=== PATIENT | male | born 1970 | race Caucasian/White ===

== ENCOUNTER 2023-10-03 11:09 | Outpatient (AMB) | payer OTHER, SELFPAY ==
--- NOTE | 2023-10-03 11:32 | A.OFFPC_ITS ---
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 Transferring care from Dr. Guajardo. Pt has not seen a PCP 3-4 years. Medical records have been requested today. 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 Has not seen a PCP in 4 years. Suffers from lower back pain with radiculopathy down right lower extremity. Patient has past medical history significant for obesity and tobacco dependency. He reports he has been a smoker over the last 25 years. Noted elevated blood pressure readings today in office. He will monitor blood pressure at home with goal blood pressure to be below 140/90. Will consider antihypertensive medication if consistently above 140/90 Vaccines: Declines FLu and COVID, did get a Tdap in 2019. Considering shingles vaccine Colon cancer screen: Needs colon cancer screening. 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 1. Little interest or pleasure in doing things: not at all 2. Feeling down, depressed, or hopeless: not at all 3. Trouble falling or staying asleep, or sleeping too much: not at all 4. Feeling tired or having little energy: not at all 5. Poor appetite or overeating: not at all 6. Feeling bad about yourself - or that you are a failure or have let yourself or your family down: not at all 7. Trouble concentrating on things, such as reading the newspaper or watching television: not at all 8. Moving or speaking so slowly that other people could have noticed. Or the opposite - being so fidgety or restless that you have been moving around a lot more than usual: not at all 9. Thoughts that you would be better off or of hurting yourself in some way: not at all Total score: 0 Depression Screening Interpretation: Negative Depression Screening Done: Yes 35195 - PHQ-9 Billing: Yes Source: Developed by Drs. Rick Alonzo, Noemy Neal, Juan R Plascencia and colleagues, with an educational obey from [employer]. Thrive Questionnaire Date Thrive assessed: 10/03/23 I am a: Patient What is your living situation today?: I have a steady place to live Within the past 12 months, did the food you bought not last and you didn't have the money to get more?: Never true Within the past 12 months, did you worry whether your food would run out before you got money to buy more?: Never true Do you have trouble paying for medicines?: No Do you have trouble paying your heating and electricity bill?: No Do you have trouble taking care of your child, family member or friend?: No Do you have trouble with day-to-day activities such as bathing, preparing meals, shopping, managing finances, etc.?: No Are you currently unemployed and looking for a job?: No Are you interested in more education?: No Please select the resources that you would like help with: None Currently or been in a relationship where the following occur: no concerns reported AUDIT C Alcohol Use Questionnaire (AUDIT-C) 1. How often do you have a drink containing alcohol?: Monthly or less 2. How many drinks containing alcohol do you have on a typical day when you are drinking?: 3 or 4 3. How often do you have six or more drinks on one occasion?: Never Total Score: 2 LUIS DANIEL-7 AMB Questionnaire LUIS DANIEL-7 Date LUIS DANIEL - 7 assessed: 10/03/23 Feeling nervous, anxious, or on edge: 0 = Not at all Not being able to stop or control worryin = Not at all Worrying too much about different things: 0 = Not at all Trouble relaxin = Not at all Being so restless that it is hard to sit still: 0 = Not at all Becoming easily annoyed or irritable: 0 = Not at all Feeling afraid as if something awful might happen: 0 = Not at all Total LUIS DANIEL-7 score (0-4 normal; 5-9 mild; 10-14 moderate; 15-21 severe): 0 Source: Developed by Drs. Rick Alonzo, Noemy Neal, Juan R Plascencia and colleagues, with an educational obey from [employer]. LUIS DANIEL-7 Assessment Billing LUIS DANIEL-7 Assessment Tool: LUIS DANIEL-7 Assessment 41264 Review of Systems Const Denies body aches, Denies chills, Denies excessive sweating, Denies fatigue, Denies fever(s) and Denies headache(s) Eyes Denies blurry vision ENT Denies dysphagia, Denies vertigo, Denies dizziness, Denies headache(s), Denies hearing loss and Denies tinnitus Card Denies chest pain, Denies chest pain with activity, Denies syncope, Denies irregular heart rhythm and Denies dyspnea Resp Denies chest congestion, Denies cough, Denies hemoptysis, Denies dyspnea and Denies wheezing GI Denies abdominal pain, Denies melena, Denies hematochezia, Denies coffee ground emesis, Denies dysphagia, Denies diarrhea, Denies nausea and Denies vomiting Denies difficulty urinating, Denies dysuria, Denies urinary frequency, Denies urinary hesitancy and Denies urinary urgency Musc Denies arthralgias, Denies limited range of motion, Denies muscle cramps and Denies muscle weakness Skin/Breast Denies rash and Denies skin ulcer Neuro Denies Abnormal speech present, Denies confusion, Denies vertigo, Denies dizziness, Denies syncope, Denies headache(s), Denies memory loss and Denies seizure-like activity Psych Denies anxiety, Denies confusion, Denies depression, Denies memory loss, Denies panic attacks and Denies paranoia Endo Denies excessive sweating, Denies fatigue, Denies flushing, Denies polydipsia and Denies polyuria Aller/Immun Denies wheezing Physical exam (Primary Care) Vital Signs: Last Vital Signs Pulse 86 10/03/23 11:33 Resp 17 10/03/23 11:33 BP 148/80 H 10/03/23 11:33 BMI result Body Mass Index 30.9 BMI Assessment/Plan discussion: High Tobacco/Smoking Status: Tobacco use Status Tobacco use date assessed 10/03/23 10/03/23 11:43 Patient Tobacco Use Status Current everyday Tobacco 10/03/23 11:43 Tobacco use type Cigarette 10/03/23 11:43 e-Cigarette/Vaping Use Never Used 10/03/23 11:43 Are you ready to quit: Yes Tobacco cessation counseling provided: Yes Items discussed: Nicotine replacement Relapse Prevention: discussed the importance of a supportive environment, discussed negative mood or depression after quitting, weight gain after smoking is common and discussed dietary, exercise and/or lifestyle changes Number of minutes spent counselin CPT code: 60293 - 4-10 Minutes PHQ-9: PHQ-9 Score PHQ-9: Total score 0 10/03/23 11:43 Depression Screening Interpretation: Negative Thrive Assessment: Date of Thrive Assessment Date Thrive assessed 10/03/23 12 11:43 Currently or been in a relationship where the following occur: no concerns reported Const Other: Obese General: cooperative, comfortable, no acute distress, alert and awake; No confusion Orientation/consciousness: oriented to person, oriented to place, patient oriented x3 and No confusion HENMT Head: Yes normocephalic Ears: external ears normal and TM's normal bilaterally Face and sinus: No sinus tenderness Mouth: Normal oral and palatal mucosa present and tongue normal Teeth and gingiva: dentition normal and gingiva normal Throat: Yes posterior oropharynx normal, Yes tonsils normal and Yes uvula midline Eyes Conjunctivae: conjunctivae normal Sclerae: sclerae normal Pupils: Equal, round and reactive pupils present EOM: EOMs intact bilaterally Direct Ophthalmoscopy: No no photophobia Neck Neck: Yes no lymphadenopathy, No tender and Yes no JVD Thyroid: Thyroid normal Carotids: no bruits Chest Chest palpation & inspection: no tenderness Resp Effort & Inspection: normal respiratory effort, no audible wheezes, not labored and no stridor Auscultation: no crackles, no rales, no rhonchi and no wheezes Cardio Jugular venous distension: no JVD Rate: regular rate, not bradycardic and not tachycardic Rhythm: regular rhythm Bruits: no carotid bruits Peripheral pulses: Peripheral pulses 2+ throughout GI Inspection: Yes normal to inspection, No abdominal wall ecchymosis and No visible herniation Palpation (GI): Soft to palpation, nontender, no guarding, not rigid and No hepatosplenomegaly present Auscultation: normoactive bowel sounds General: Yes no CVA tenderness Back/Spine/Pelvis Back: no CVA tenderness and No back tenderness Cervical Spine: cervical ROM normal Thoracic/Lumbar Spine: thoracic and lumbar spine normal to inspection, straight leg raise negative bilaterally, No thoraco-lumbar ROM limited and No lumbar spinal tenderness Skin Lesions: no lesions Rashes: no rashes Wounds: no wounds Neuro General: oriented to person, oriented to place, patient oriented x3, CN's II-XI intact bilaterally and No confusion Cranial nerves: Yes Equal, round and reactive pupils present and Yes Normal accommodation reflex present Cognition (Neuro): normal cognition Speech: No Abnormal speech present Gait exam (Neuro): Normal gait present Motor exam (neuro): 5/5 motor strength present throughout Extrem Right upper extremity: full ROM; no cyanosis Left upper extremity: full ROM; no cyanosis Right lower extremity: no edema Left lower extremity: no edema Psych Appearance: grossly normal Mental Status: mental status grossly normal Affect: normal affect Attitude: cooperative Thought process: Normal thought process present Assessment and Plan Assessment & Plan (1) Annual physical exam: Code(s): Z00.00 - Encounter for general adult medical examination without abnormal findings (2) Tobacco dependence: Code(s): F17.200 - Nicotine dependence, unspecified, uncomplicated Plan: Patient reports he has been smoking for 20 - 25 years. He is interested in stopping smoking. He reports nicotine patches have been helpful. He is interested in the lung cancer screening program. (3) Colon cancer screening: Code(s): Z12.11 - Encounter for screening for malignant neoplasm of colon Plan: Reports getting colonoscopy 10 years ago. Did have polyps though unclear pathology. Will refer to GI for another screening colonoscopy. (4) Elevated blood pressure reading: Code(s): R03.0 - Elevated blood-pressure reading, without diagnosis of hypertension Plan: Noted elevated blood pressure reading today in office. He will monitor his blood pressure at home with goal blood pressure to be below 140/90. If blood pressure remains elevated will consider starting medication. (5) Screening for diabetes mellitus (DM): Code(s): Z13.1 - Encounter for screening for diabetes mellitus (6) Obese: Code(s): E66.9 - Obesity, unspecified Qualifiers: Obesity type: due to excess calories Obesity classification: adult class 1 (BMI 30 - 34.9) Serious obesity comorbidity presence: without serious comorbidity Body mass index: BMI 30.0-30.9 Qualified Code(s): E66.09 - Other obesity due to excess calories; Z68.30 - Body mass index [BMI] 30.0-30.9, adult Plan: Patient does understand his BMI is over 30. He will work on being more physically active and adapting to better eating habits to reduce his weight Orders: Orders Prostate Specific Antigen Scr Today Z12.5 - Encounter for screening for malignant neoplasm of prostate, Z13.1 - Encounter for screening for diabetes mellitus Comprehensive [place]. Panel Fast Today Z13.1 - Encounter for screening for diabetes mellitus Complete Blood Count no Diff Today Z13.1 - Encounter for screening for diabetes mellitus Referrals Gastroenterology Referral Z12.11 - Encounter for screening for malignant neoplasm of colon Thoracic Surgery Referral F17.200 - Nicotine dependence, unspecified, uncomplicated Medications: New nicotine 1 patch transdermal DAILY 14 days 14 ea 0RF F17.200 - Nicotine dependence, unspecified, uncomplicated Coding Level of Care Code New Pt Prev Care 40-64y(70466) Diagnoses Annual physical exam Z00.00 Tobacco dependence F17.200 Colon cancer screening Z12.11 Elevated blood pressure reading R03.0 Screening for diabetes mellitus (DM) Z13.1 Class 1 obesity due to excess calories without serious comorbidity with body mass index (BMI) of 30.0 to 30.9 in adult E66.09; Z68.30 Obesity type: due to excess calories Obesity classification: adult class 1 (BMI 30 - 34.9) Serious obesity comorbidity presence: without serious comorbidity Body mass index: BMI 30.0-30.9 Additional Codes LUIS DANIEL-7 Assessment Billing - LUIS DANIEL-7 Assessment Tool: LUIS DANIEL-7 Assessment 14910 ([id number]) Vital Signs *Quality* - CPT code: 44252 - 4-10 Minutes ([id number])
[2023-10-03 11:33] VITALS: BP 148/80; PULSE 86; RESP 17; BMI 30.9
== END 2023-10-03 12:20 | disposition home or self-care (01) ==
PROVIDERS: PCP Physician Assistant; Visit Provider Physician Assistant
DX: Z00.00 Encounter for general adult medical examination without abnormal findings (principal); F17.210 Nicotine dependence, cigarettes, uncomplicated; Z12.11 Encounter for screening for malignant neoplasm of colon; R03.0 Elevated blood-pressure reading, without diagnosis of hypertension; Z13.1 Encounter for screening for diabetes mellitus; E66.09 Other obesity due to excess calories; Z68.30 Body mass index [BMI] 30.0-30.9, adult
CPT/HCPCS: 99386; 99406

== ENCOUNTER → 2023-10-16 08:21 | Outpatient (BNVA) | payer OTHER, SELFPAY | PROVIDERS: PCP Physician Assistant; Visit Provider Internal Medicine | DX: S61.432A Puncture wound without foreign body of left hand, initial encounter (principal); W29.8XXA Contact with other powered hand tools and household machinery, initial encounter | CPT/HCPCS: 73130; 99203 ==

== ENCOUNTER → 2023-10-18 08:19 | Outpatient (BNVA) | payer OTHER, SELFPAY | PROVIDERS: PCP Physician Assistant; Visit Provider Internal Medicine | DX: S61.432A Puncture wound without foreign body of left hand, initial encounter (principal); W29.8XXA Contact with other powered hand tools and household machinery, initial encounter | CPT/HCPCS: 99213 ==

== ENCOUNTER → 2023-11-04 10:27 | Outpatient (BNVA) | payer OTHER, SELFPAY | PROVIDERS: PCP Physician Assistant; Visit Provider Internal Medicine | DX: S81.811A Laceration without foreign body, right lower leg, initial encounter (principal); X58.XXXA Exposure to other specified factors, initial encounter | CPT/HCPCS: 99203 ==

== ENCOUNTER → 2023-11-06 08:16 | Outpatient (BNVA) | payer OTHER, SELFPAY | PROVIDERS: PCP Physician Assistant; Visit Provider Internal Medicine | DX: S81.811A Laceration without foreign body, right lower leg, initial encounter (principal); L03.115 Cellulitis of right lower limb; X58.XXXA Exposure to other specified factors, initial encounter | CPT/HCPCS: 99213 ==

== ENCOUNTER → 2023-11-08 11:27 | Outpatient (BNVA) | payer OTHER, SELFPAY | PROVIDERS: PCP Physician Assistant; Visit Provider Internal Medicine | DX: S81.811A Laceration without foreign body, right lower leg, initial encounter (principal); L03.115 Cellulitis of right lower limb; X58.XXXA Exposure to other specified factors, initial encounter | CPT/HCPCS: 99213 ==

== ENCOUNTER → 2023-11-11 11:06 | Outpatient (BNVA) | payer OTHER, SELFPAY | PROVIDERS: PCP Physician Assistant; Visit Provider Internal Medicine | DX: S81.811A Laceration without foreign body, right lower leg, initial encounter (principal); X58.XXXA Exposure to other specified factors, initial encounter | CPT/HCPCS: 99213 ==

== ENCOUNTER → 2023-11-15 08:06 | Outpatient (BNVA) | payer OTHER, SELFPAY | PROVIDERS: PCP Physician Assistant; Visit Provider Internal Medicine | DX: S81.811D Laceration without foreign body, right lower leg, subsequent encounter (principal); X58.XXXD Exposure to other specified factors, subsequent encounter | CPT/HCPCS: 99213 ==

== ENCOUNTER 2024-01-22 14:25 | Outpatient (AMB) | payer OTHER, SELFPAY ==
--- NOTE | 2024-01-22 14:25 | A.OFFVIS_ITS ---
Intake Vital Signs 01/22/24 14:33 Height 5 ft 9 in Weight 210 lb BMI 31.0 BP 149/71 H Blood Pressure Location Lt brachial Position Sitting Pulse 94 Intake Visit Reasons: Colonoscopy Screening Intake Note: Patient new consult for 2nd pre colonoscopy screening. Patient cc: constipation on and off, denies any other GI issues. 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 abdominal pain fever or chills PFSH Surgical History Hx of colonoscopy Family History Mother Liver cancer Father Heart attack, Onset Age: 69 Diabetes Brother Diabetes Social History Housing: House Alcohol intake: current Alcohol intake frequency: a few times a week Alcohol type: beer Patient Tobacco Use Status: Current everyday Tobacco user Tobacco use type: Cigarette Cigarette Packs Per Day: 1 Cigarettes Per Day: 20 Years Smoked: 20 e-Cigarette/Vaping Use: Never Used service: No Current occupational status: employed 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 Cognitive needs: No Hearing needs: No Vision needs: Yes Review of Systems Const All systems reviewed & are unremarkable except as noted in HPI and below Card Denies chest pain and Denies dyspnea Resp Denies dyspnea GI Reports constipation (Intermittent) Physical Exam Vital Signs: Last Vital Signs Pulse 94 01/22/24 14:33 BP 149/71 H 01/22/24 14:33 BMI result Body Mass Index 31.0 Const General: cooperative, healthy appearing and comfortable Orientation/consciousness: patient oriented x3 Limitations: no limitations and ambulation with cane Eyes Sclerae: sclerae normal Resp Effort & Inspection: normal respiratory effort and able to speak in complete sentences Auscultation: clear to auscultation bilaterally, no rales, no rhonchi and no wheezes Cardio Rate: regular rate Rhythm: regular rhythm Heart sounds: S1 normal heart sound present and S2 normal heart sound present GI Palpation (GI): Soft to palpation and nontender Auscultation: normal bowel sounds Skin General skin exam: no rashes or lesions noted Neuro General: patient oriented x3 Extrem General: Yes full ROM Psych Appearance: grossly normal and well kempt Mental Status: mental status grossly normal Speech and movement: Normal speech and movement present Affect: normal affect Attitude: cooperative Thought process: Normal thought process present Thought content: Normal thought content present Insight: Good insight present (Psych) Judgement: Good judgement present (Psych) Assessment & Plan Assessment & Plan (1) Colon cancer screening: Comment: Maria D Amador referred for screening colonoscopy Code(s): Z12.11 - Encounter for screening for malignant neoplasm of colon Plan: screening colonoscopy Plan Colonoscopy Orders: Orders Colonoscopy - GI Use Only 01/22/24 Z12.11 - Encounter for screening for malignant neoplasm of colon Medications: New polyethylene glycol 3350 (Miralax) Take as directed by mouth the day before your procedure. 238 grams PO ONCE PRN 238 grams 0RF laxative effect 1 day bisacodyl (Dulcolax (bisacodyl)) Day before procedure @ 12 noon Take 4 tablets by mouth followed by large glass of water 20 mg (4 x 5 mg) PO ONCE PRN 4 tabs 0RF colonoscopy prep 1 day Z12.11 - Encounter for screening for malignant neoplasm of colon Patient Instructions: Screening colonoscopy, MiraLax Gatorade prep reviewed literature given Must be escorted due to anesthesia Rare risks review Opportunity for questions answered to his satisfaction Appreciate the opportunity assist in care maria d Amador Coding Level of Care Code New Pt Level 3 (07270) Diagnoses Colon cancer screening Z12.11 Time Spent (min) 30
[2024-01-22 14:33] VITALS: BP 149/71; PULSE 94; BMI 31.0
== END 2024-01-22 15:13 | disposition home or self-care (01) ==
PROVIDERS: PCP Physician Assistant; Visit Provider Physician Assistant
DX: Z12.11 Encounter for screening for malignant neoplasm of colon (principal); Z01.818 Encounter for other preprocedural examination
CPT/HCPCS: 99203

== ENCOUNTER → 2024-01-22 14:25 | Outpatient (BNVA) | payer OTHER, SELFPAY | PROVIDERS: PCP Physician Assistant; Visit Provider Physician Assistant ==

== ENCOUNTER 2024-02-28 10:19 | Outpatient (AMB) | payer OTHER, SELFPAY ==
--- NOTE | 2024-02-28 08:22 | MHC.OFFVIS ---
Intake Visit Reasons: Current Smoker Allergies No Known Allergies Allergy (Verified 01/22/24 14:28) HPI HPI Current Smoker: Details: Initial visit for this 53yo smoker with a 30+PYH. Patient has been smoking since age 19 for 34 years at 1ppd. . Denies marijuana use. Reports social second hand smoke exposure. Denies exposure to chemicals or substances like asbestos. . Denies known family history of lung cancer. Denies personal history of cancers. Denies chest CT in last year. . Denies recent travel outside the [place]. Denies recent respiratory illness or recent hospitalization for respiratory issues. Reports testing positive for COVID. Denies receiving COVID Vaccine. . Denies fever, chills, new/worsening cough, hemoptysis, hoarseness or dysphagia. Denies significant chest pain, significant dyspnea or unintentional weight loss. Patient Lung Cancer Screening Questionnaire reviewed with patient by provider. . Shared Decision Making Completed. Patient meets criteria. Discussed in detail with patient, the risk vs benefit of LDCT screening. Patient consents to proceed with scan. Discussed smoking cessation. [facility] Medical History (Updated 02/28/24 @ 10:30 by Samantha Sheriff PA-C) Nicotine dependence, cigarettes, uncomplicated Surgical History Hx of colonoscopy Family History Mother Liver cancer Father Heart attack, Onset Age: 69 Diabetes Brother Diabetes Social History (Updated 02/28/24 @ 10:31 by Samantha Sheriff PA-C) Housing: House Alcohol intake: current Alcohol intake frequency: a few times a week Alcohol type: beer Patient Tobacco Use Status: Current everyday Tobacco user Tobacco use type: Cigarette Cigarette Packs Per Day: 1 Cigarettes Per Day: 20 Years Smoked: (onset 19yo, 1ppd x 34yrs, 30+PYH) e-Cigarette/Vaping Use: Never Used service: No Current occupational status: employed 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 - Patient meets criteria for LDCT for lung cancer screening purposes and is asymptomatic. - Smoking cessation counseling offered. Patients can always call [phone]. - Will arrange for a LDCT scan of the chest for screening purposes at [facility]. - Risks, benefits, and alternatives were discussed in detail and the patient agrees to proceed. - Risks discussed include but are not limited to: radiation exposure, anxiety during testing and while awaiting results, false negatives, false positives and possibility of additional intervention such as further imaging or surgical procedures for benign disease. - Benefits are obviously detection of lung cancer at an early stage which can lead to improved outcomes. - Discussed the importance of screening program compliance with adherence to yearly LDCT scan as scheduled - or sooner interval scans for personalized screening regimen. - Discussed follow up plan. Our office will send a letter discussing results and if needed set up phone call and office visit based on CT findings. - Patient educated on results categorization and the management decisions for suspicious findings potentially found on the screening LDCT scan. Any patient with a Lung RADS score of 3 or 4 will be reviewed by a multidisciplinary team at [facility] to form a plan of action in regards to scan findings. - If further work up is warranted for a suspicious lung finding this will be followed by the Lung Cancer Screening program in conjunction with the Thoracic Surgery Department at [facility]. - A copy of the office note and LDCT will be sent to the patient's PCP - as well as documentation on any associated further plans of care. - Incidental findings on LDCT are the PCP's responsibility. These findings are indicated with an S finding on the LDCT Assessment. A note discussing the findings will be sent to the PCP who is then responsible for further management. - All questions answered.? Coding Level of Care Code Lung Cancer Screening G0296 Diagnoses Nicotine dependence, cigarettes, uncomplicated F17.210
== END 2024-02-28 10:43 | disposition home or self-care (01) ==
PROVIDERS: PCP Physician Assistant; Referring Provider Physician Assistant; Visit Provider Physician Assistant Medical
DX: F17.210 Nicotine dependence, cigarettes, uncomplicated (principal)
CPT/HCPCS: G0296

== ENCOUNTER 2024-02-28 10:39 | Outpatient (REF) | payer OTHER, SELFPAY ==
--- NOTE | ~2024-02-28 | CT_ITS ---
EXAMINATION: CT LOW-DOSE SCREENING CHEST WITHOUT CONTRAST CLINICAL INFORMATION: Nicotine dependence, cigarettes, uncomplicated. The patient is a current smoker with a 41 pack-year history of smoking. COMPARISON: None available. TECHNIQUE: Multidetector volumetric CT imaging of the chest is performed on a Siemens SOMATOM Definition scanner without contrast using low dose technique. Additional 2D coronal and sagittal reformatted images and axial 3D maximum intensity projection (MIP) images are generated on the CT workstation. This CT examination was performed using dose optimization techniques as appropriate, variously including the following: *Automated exposure control *Adjustment of mA and/or kV according to patient size (this includes techniques or standardized protocols for targeted exams where dose is matched to indication/reason for exam; i.e. extremities or head) *Use of iterative reconstruction technique TOTAL EXAM DLP: 69 mGy-cm. CTDIvol: 1.94 mGy. FINDINGS: PULMONARY NODULES: A few small pulmonary nodules are present including a 3 mm left upper lobe nodule (5:153), a 2 mm right upper lobe nodule (5:221), a 2 mm subpleural left lower lobe nodule (5:234) and a triangular tiny perifissural lymph node in the lingula along the major fissure. No suspicious lung mass is seen. LUNGS: Lungs bilaterally symmetrically expanded. There are mild emphysematous changes and mild bronchial thickening. No effusion or pneumothorax. Central airways patent. MEDIASTINUM: No mediastinal, hilar or axillary adenopathy or free fluid collection. CORONARY ARTERY CALCIFICATION: Mild. THYROID GLAND: Unremarkable to the extent seen. CARDIOVASCULAR STRUCTURES: Aortic and heart size normal. No pericardial effusion. CHEST WALL/AXILLA: Unremarkable. UPPER ABDOMEN: Included portions of the solid organs in the upper abdomen unremarkable on noncontrast imaging. OSSEOUS STRUCTURES: No suspicious focal findings. CT/CT lung screening IMPRESSION: 1. A few small pulmonary nodules are present, the largest measuring 3 mm. 2. Mild emphysematous changes. ASSESSMENT: 1. Lung-RADS Category 2: Benign appearance or behavior of nodules. N/A 2. Lung-RADS Category S: Negative. There are no clinically significant or potentially clinically significant findings not related to the lungs requiring urgent additional evaluation. RECOMMENDATION: Continued routine annual low-dose CT lung screening in 1 year is recommended. An order for CT CHEST LOW DOSE CANCER SCREENING ([id number]) can be placed.
== END 2024-02-28 10:40 | disposition home or self-care (01) ==
LOC: HO.CT 10:39
PROVIDERS: PCP Physician Assistant; Visit Provider Nurse Practitioner Family
DX: Z12.2 Encounter for screening for malignant neoplasm of respiratory organs (principal); F17.210 Nicotine dependence, cigarettes, uncomplicated
CPT/HCPCS: 71271; G0296

== ENCOUNTER 2024-03-30 15:15 | Outpatient (AMB) | payer OTHER, SELFPAY ==
[2024-03-30 15:26] VITALS: BP 158/80; PULSE 109; O2SAT 96; BMI 31.4
--- NOTE | 2024-03-30 15:26 | A.OFFPC_ITS ---
Vital Signs 03/30/24 15:26 Height 5 ft 9 in Weight 212 lb 8 oz BMI 31.4 BP 158/80 H Blood Pressure Location Lt brachial Position Sitting Pulse 109 H Pulse Source Pulse Oximeter Pulse Oximetry (%) 96 Oxygen Delivery Method Room Air Intake Visit Reasons: 6M follow up Allergies No Known Allergies Allergy (Verified 03/30/24 15:34) Medication List - Last Reconciled 03/30/24 by Gautam Cheema PA-C bisacodyl (Dulcolax (bisacodyl)) 20 mg (4 x 5 mg) PO ONCE PRN 1 day nicotine 1 patch transdermal DAILY 14 days polyethylene glycol 3350 (Miralax) 238 grams PO ONCE PRN 1 day Tobacco use date assessed: 10/03/23 Dental Screening Dental Screen Date: 10/03/23 HPI 6M follow up HPI Details Patient is a 53 year male here today for a follow-up visit. . Suffers from lower back pain with radiculopathy down right lower extremity. Patient has past medical history significant for obesity and tobacco dependency. He reports he has been a smoker over the last 25 years. Has followed up with lung cancer screening program received a low-dose CT scan which did show non concerning pulmonary nodules which will be followed on an annual basis. Noted elevated blood pressure readings today in office. He will monitor blood pressure at home with goal blood pressure to be below 140/90. Will consider antihypertensive medication if consistently above 140/90 FORMERLY [facility], [facility] Medical History (Updated 03/30/24 @ 15:40 by Gautam Cheema PA-C) Nicotine dependence, cigarettes, uncomplicated Surgical History Hx of colonoscopy Family History Mother Liver cancer Father Heart attack, Onset Age: 69 Diabetes Brother Diabetes Social History Housing: House Alcohol intake: current Alcohol intake frequency: a few times a week Alcohol type: beer Patient Tobacco Use Status: Current everyday Tobacco user Tobacco use type: Cigarette Cigarette Packs Per Day: 1 Cigarettes Per Day: 20 Years Smoked: (onset 19yo, 1ppd x 34yrs, 30+PYH) e-Cigarette/Vaping Use: Never Used service: No Current occupational status: employed 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 1. Little interest or pleasure in doing things: not at all 2. Feeling down, depressed, or hopeless: not at all 3. Trouble falling or staying asleep, or sleeping too much: not at all 4. Feeling tired or having little energy: not at all 5. Poor appetite or overeating: not at all 6. Feeling bad about yourself - or that you are a failure or have let yourself or your family down: not at all 7. Trouble concentrating on things, such as reading the newspaper or watching television: not at all 8. Moving or speaking so slowly that other people could have noticed. Or the opposite - being so fidgety or restless that you have been moving around a lot more than usual: not at all 9. Thoughts that you would be better off or of hurting yourself in some way: not at all Total score: 0 Depression Screening Interpretation: Negative Depression Screening Done: Yes 47658 - PHQ-9 Billing: Yes Source: Developed by Drs. Rick Alonzo, Noemy Neal, Juan R Plascencia and colleagues, with an educational obey from [employer]. Thrive Questionnaire Date Thrive assessed: 03/30/24 I am a: Patient What is your living situation today?: I have a steady place to live Within the past 12 months, did the food you bought not last and you didn't have the money to get more?: Never true Within the past 12 months, did you worry whether your food would run out before you got money to buy more?: Never true Do you have trouble paying for medicines?: No Do you have trouble getting transportation to medical appointments?: No Do you have trouble paying your heating and electricity bill?: No Do you have trouble taking care of your child, family member or friend?: No Do you have trouble with day-to-day activities such as bathing, preparing meals, shopping, managing finances, etc.?: No Are you currently unemployed and looking for a job?: No Are you interested in more education?: No Please select the resources that you would like help with: None Currently or been in a relationship where the following occur: no concerns reported THRIVE Score: 0 AUDIT C Alcohol Use Questionnaire (AUDIT-C) 1. How often do you have a drink containing alcohol?: Monthly or less 2. How many drinks containing alcohol do you have on a typical day when you are drinking?: 3 or 4 3. How often do you have six or more drinks on one occasion?: Never Total Score: 2 LUIS DANIEL-7 AMB Questionnaire LUIS DANIEL-7 Date LUIS DANIEL - 7 assessed: 10/03/23 Source: Developed by Drs. Rick Alonzo, Noemy Neal, Juan R Plascencia and colleagues, with an educational obey from [employer]. Review of Systems Const Denies headache(s) Eyes Denies loss of vision ENT Denies vertigo, Denies dizziness, Denies headache(s) and Denies sore throat Card Denies chest pain, Denies leg edema and Denies lightheadedness Resp Denies cough, Denies hemoptysis and Denies wheezing GI Denies abdominal pain, Denies melena, Denies constipation, Denies diarrhea and Denies vomiting Denies dysuria, Denies urinary frequency and Denies urinary urgency Musc Denies arthralgias, Denies joint swelling, Denies numbness and Denies tingling Neuro Denies Abnormal speech present, Denies behavioral changes, Denies vertigo, Denies dizziness, Denies headache(s), Denies loss of vision, Denies memory loss, Denies numbness and Denies tingling Psych Denies anxiety, Denies behavioral changes, Denies depression, Denies memory loss and Denies panic attacks Gerald/Lymph Denies easy bleeding and Denies easy bruising Aller/Immun Denies wheezing Physical exam (Primary Care) Vital Signs: Last Vital Signs Pulse 109 H 03/30/24 15:26 BP 158/80 H 03/30/24 15:26 Pulse Ox 96 03/30/24 15:26 Oxygen Delivery Method Room Air 03/30/24 15:26 BMI result Body Mass Index 31.4 Tobacco/Smoking Status: Tobacco use Status Tobacco use date assessed 10/03/23 03/30/24 15:29 Patient Tobacco Use Status Current everyday Tobacco 03/30/24 15:29 Tobacco use type Cigarette 03/30/24 15:29 e-Cigarette/Vaping Use Never Used 03/30/24 15:29 Are you ready to quit: Yes Tobacco cessation counseling provided: Yes Items discussed: Nicotine replacement Relapse Prevention: discussed the importance of a supportive environment, discussed negative mood or depression after quitting, weight gain after smoking is common and discussed dietary, exercise and/or lifestyle changes Number of minutes spent counselin CPT code: 67419 - 4-10 Minutes PHQ-9: PHQ-9 Score PHQ-9: Total score 0 03/30/24 15:33 Depression Screening Interpretation: Negative Thrive Assessment: Date of Thrive Assessment Date Thrive assessed 03/30/24 03/30/24 15:32 Currently or been in a relationship where the following occur: no concerns reported Const General: healthy appearing, no acute distress, alert and awake Nutritional Appearance: well nourished Orientation/consciousness: oriented to person, oriented to place and oriented to time HENMT Ears: TM's normal bilaterally General nose exam: Normal nasal mucous membranes and turbinates present Eyes Conjunctivae: conjunctivae normal Sclerae: sclerae normal Pupils: Equal, round and reactive pupils present Neck Neck: Yes no lymphadenopathy and Yes no JVD Thyroid: Thyroid normal Carotids: no bruits Resp Effort & Inspection: normal respiratory effort and not tachypneic Auscultation: no crackles, no rales, no rhonchi and no wheezes Cardio Rate: regular rate Rhythm: regular rhythm Heart sounds: no murmurs and normal S1 and S2 GI Palpation (GI): Soft to palpation, nontender, no hepatomegaly and no splenomegaly Auscultation: normal bowel sounds Skin General skin exam: no rashes or lesions noted and dry skin Neuro General: oriented to person, oriented to place and oriented to time Cranial nerves: Yes Equal, round and reactive pupils present Speech: No Abnormal speech present Gait exam (Neuro): Normal gait present Motor exam (neuro): no tremor noted Extrem Right upper extremity: full ROM Left upper extremity: full ROM Right lower extremity: full ROM; no edema Left lower extremity: full ROM; no edema Psych Mental Status: mental status grossly normal Speech and movement: Normal speech and movement present Affect: normal affect Attitude: cooperative Thought process: Normal thought process present Assessment and Plan Assessment & Plan (1) Tobacco dependence: Code(s): F17.200 - Nicotine dependence, unspecified, uncomplicated Plan: Patient reports he has been smoking for 20 - 25 years. He is interested in stopping smoking. He reports nicotine patches have been helpful. He followed up lung cancer screening program and does have small nodules though repeat CT in 1 year. He has cut down smoking cigarettes (2) Elevated blood pressure reading: Code(s): R03.0 - Elevated blood-pressure reading, without diagnosis of hypertension Plan: Noted elevated blood pressure reading today in office. He will monitor his blood pressure at home with goal blood pressure to be below 140/90. If blood pressure remains elevated will consider starting medication. (3) Emphysema lung: Code(s): J43.9 - Emphysema, unspecified Qualifiers: Emphysema type: unspecified Qualified Code(s): J43.9 - Emphysema, unspecified Plan: Recent CT scan showing mild emphysema (4) Nicotine dependence, cigarettes, uncomplicated: Comment: (onset 19yo, 1ppd x 34yrs, 30+PYH) Code(s): F17.210 - Nicotine dependence, cigarettes, uncomplicated Plan: Does understand he needs to quit smoking. He reports patches have been helpful. He is interested in refills on his patches. Medications: New nicotine 1 patch transdermal Q24H 14 ea 1RF F17.210 - Nicotine dependence, cigarettes, uncomplicated Refilled nicotine 1 patch transdermal DAILY 14 ea 2RF 14 days F17.200 - Nicotine dependence, unspecified, uncomplicated Patient Instructions: Goal: Quit smoking, monitor blood pressure readings Barriers: Availability to cigarettes, adherence to physical activity and healthy eating habits Coding Level of Care Code Est Pt Level 4 (15888) Diagnoses Tobacco dependence F17.200 Elevated blood pressure reading R03.0 Pulmonary emphysema, unspecified emphysema type J43.9 Emphysema type: unspecified Nicotine dependence, cigarettes, uncomplicated F17.210 Additional Codes Vital Signs *Quality* - CPT code: 14486 - 4-10 Minutes ([id number])
== END 2024-03-30 15:48 | disposition home or self-care (01) ==
PROVIDERS: PCP Physician Assistant; Visit Provider Physician Assistant
DX: F17.200 Nicotine dependence, unspecified, uncomplicated (principal); R03.0 Elevated blood-pressure reading, without diagnosis of hypertension; J43.9 Emphysema, unspecified; F17.210 Nicotine dependence, cigarettes, uncomplicated
CPT/HCPCS: 99214; 99406

== ENCOUNTER 2024-06-04 07:57 | Day surgery (SDC) | payer OTHER, SELFPAY ==
[2024-06-02 14:27] VITALS: BMI 31.0
[2024-06-04 08:28] VITALS: BMI 29.0
--- NOTE | 2024-06-04 08:33 | P.HPSUR_ITS ---
Pre-Procedural Eval Section A - 24 Hr Update-Section A only Date of Service: 06/04/24 Section B - Complete if H&P > 30 days Chief Complaint: screening Relevant Family History (Specify if Yes): No Relevant Social History: Tobacco Use Present Medications: see Short Stay Collaborative assessment Medical History: Significant History (back pain) History of Previous Operations: Relevant previous surgery/procedure and date(s) (colonoscopy) Allergies: Allergies Allergy/AdvReac Type Severity Reaction Status Date / Time No Known Allergies Allergy Verified 03/30/24 15:34 Review of Systems Sugical H&P ROS: Negative: Constitution, Cardiovascular, Respiratory, Neur ological, Psychiatric, Hem-Onc, Allergic/Immunologic, Gastrointestinal, Genitourinary, Musculoskeletal, Integumentary, Endocrine and Eyes/Ears/Nose/Throat Exam Surgical H&P Exam: Normal: HEENT, Normal: Heart, Normal: Lungs, Normal: Extremities, Normal: Abdomen, Normal: Skin and Normal: Neurological Plan Diagnosis/Plan: Unchanged I have reviewed the history and physical and performed a pertinent physical examination on my patient. No changes have occurred unless specified. Time Spent With Patient Time: Total time managing care of this patient today ____ minutes.
[2024-06-04 08:34] VITALS: BP 178/86; PULSE 86; RESP 16; TEMP 36.8; O2SAT 97
[2024-06-04] MEDS: Albuterol Sulfate (0.083%) 2.5 MG/3 ML VIAL.NEB INHALE (08:40)
[2024-06-04 08:42] VITALS: PULSE 88; RESP 16; O2SAT 99
[2024-06-04] MEDS: Lactated Ringers 1,000 ML 100 ML IVCONT (08:51)
--- NOTE | 2024-06-04 08:55 | P.CONAN_ITS ---
FORMERLY [facility] Active Problems Active Problems: All Active Problems Emphysema lung (Acute) Nicotine dependence, cigarettes, uncomplicated (Acute) Obese (Acute) Elevated blood pressure reading (Acute) Colon cancer screening (Acute) Past Medical History Medical History Nicotine dependence, cigarettes, uncomplicated Family History Family History Mother Liver cancer Father Heart attack, Onset Age: 69 Diabetes Brother Diabetes Surgical History Surgical History Hx of colonoscopy History of Problems with Anesthesia: No Social History Social History Housing: House Alcohol intake: current Alcohol intake frequency: a few times a week Alcohol type: beer Patient Tobacco Use Status: Current everyday Tobacco user Tobacco use type: Cigarette Cigarette Packs Per Day: 1 Cigarettes Per Day: 20.0 Years Smoked: (onset 19yo, 1ppd x 34yrs, 30+PYH) e-Cigarette/Vaping Use: Never Used Use of substances other than those prescribed or required for medical reasons: No Have you been hit, kicked, punched, or otherwise hurt by someone within the past year? 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 Cognitive needs: No Hearing needs: No Vision needs: Yes Meds Allergies Allergy/AdvReac Type Severity Reaction Status Date / Time No Known Allergies Allergy Verified 03/30/24 15:34 Active Medications: Current Medications Lactated Ringer's (Lr) 1,000 mls @ 100 mls/hr IVCONT .Q10H RADHA Last Admin: 06/04/24 08:51 Dose: 100 mls/hr Exam Height,Weight and Vital Signs: Height 5 ft 9 in Weight 88.995 kg Last Vital Signs Temp 98.2 F 06/04/24 08:34 Pulse 88 06/04/24 08:42 Resp 16 06/04/24 08:42 BP 178/86 H 06/04/24 08:34 Pulse Ox 97 06/04/24 08:34 O2 Del Method Room Air 06/04/24 08:34 Airway Mallampati Class: II (edentulous) TM Dist: >3cm Neck ROM: Full Denture: Upper and Lower Loose/Missing/Broken Teeth: Yes, Upper and Lower Heart: RRR Lungs: CTA, DISTANT Assessment and Plan Assessment Anesthesia Assessment: Anesthesia Plan Discussed and Chart Reviewed Final Anesthetic Review History of Problems with Anesthesia: No NPO: Yes ASA Class: III Final Preanesthetic Review: Meds/Allgs Chart Reviewed, Consent Obtained/Reviewed and Anes Risks/Benef Reviewed Patient Risk: Intermediate Procedure Risk: Low Anesthetic Plan Anesthetic Plan: MAC: Disposition: Standard PACU
--- NOTE | 2024-06-04 09:30 | HO.OPN-COLON ---
Colonoscopy Operative Note Operative Note Date of Service: 06/04/24 Narrative: Operative Information Procedure Description: Colonoscopy Indication: screening Anesthesia: MAC COLONOSCOPY Instrument: Olympus variable stiffness ADULT scope 190L Colonoscopy Monitoring: Vital signs and clinical assessment, continuous EKG monitoring, Pulse oximetry, Carbon Dioxide monitoring and blood pressure monitoring were done throughout the procedure. Colon withdrawal time was 10 minutes. Procedure: The patient was placed in the left lateral decubitis position and pre-procedure medications were administered. After a digital rectal examination of the ano-rectum, the video colonoscope was inserted into the rectum and advanced through the colon to the cecum/TI. The colonoscope was slowly withdrawn in a retrograde panoramic fashion and the colon mucosa was carefully examined including a retroflexed view of the rectum. Findings and interventions are described below. Procedure Difficulty: easy Findings: Terminal Ileum-normal Cecum:normal Right sided retroflexion- normal Ascending Colon: normal Transverse Colon -normal Descending Colon: 10 mm sessile polyp removed with cold snare and 3 clips applied for hemostasis Sigmoid Colon: normal Rectum: Retroflexion with medium sized internal hemorrhoids seen, grade I Anorectum - normal Intervention: cold snare and clips Colon preparation: [place] Bowel Preparation Scale Right colon; 2 Transverse colon: 3 Left colon; 3 (0 = Unprepared colon segment with mucosa not seen due to solid stool that cannot be cleared. 1 = Portion of mucosa of the colon segment seen, but other areas of the colon segment not well seen due to staining, residual stool and/or opaque liquid. 2 = Minor amount of residual staining, small fragments of stool and/or opaque liquid, but mucosa of colon segment seen well. 3 = Entire mucosa of colon segment seen well with no residual staining, small fragments of stool or opaque liquid) Impression and Post Procedure Diagnosis: diverticulosis colon polyps internal hemorrhoids Plan: High fiber diet leaflet Avoid straining at stool, epsom salts and sitz bath, anusol supps or cream Repeat Colonoscopy in 5-6 years due to polyp or earlier if clinically indicated Above findings were reviewed with the patient and relevant handouts were provided if indicated.
[2024-06-04 09:35] VITALS: BP 128/79; PULSE 91; RESP 16; TEMP 36.6; O2SAT 96
[2024-06-04 09:50] VITALS: BP 130/66; PULSE 87; RESP 16; TEMP 36.6; O2SAT 97
== END 2024-06-04 10:22 | disposition home or self-care (01) ==
PROVIDERS: PCP Physician Assistant; Visit Provider Internal Medicine Gastroenterology
PROC: 0DJD8ZZ Inspection of Lower Intestinal Tract, Via Natural or Artificial Opening Endoscopic (ICD-10-PCS; CPT 45378; principal; 2024-06-04 09:40)
DX: Z12.11 Encounter for screening for malignant neoplasm of colon (principal); D12.4 Benign neoplasm of descending colon; K57.30 Diverticulosis of large intestine without perforation or abscess without bleeding; K64.0 First degree hemorrhoids; K59.00 Constipation, unspecified; F17.210 Nicotine dependence, cigarettes, uncomplicated
CPT/HCPCS: 45385; 88305; 94640; J2250; J2704

== ENCOUNTER → 2024-06-04 07:57 | Outpatient (BNV) | payer OTHER, SELFPAY | PROVIDERS: PCP Physician Assistant; Visit Provider Internal Medicine Gastroenterology | DX: Z12.11 Encounter for screening for malignant neoplasm of colon (principal); D12.4 Benign neoplasm of descending colon; K57.30 Diverticulosis of large intestine without perforation or abscess without bleeding; K64.0 First degree hemorrhoids | CPT/HCPCS: 45385 ==

== ENCOUNTER 2024-07-02 14:43 | Outpatient (AMB) | payer OTHER, SELFPAY ==
[2024-07-02 15:06] VITALS: BP 160/92; PULSE 105; O2SAT 97
--- NOTE | 2024-07-02 15:06 | A.OFFPC_ITS ---
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 Accompanied by: Self / Same As Patient Allergies No Known Allergies Allergy (Verified 07/02/24 15:09) Medication List - Last Reconciled 07/02/24 by Gautam Cheema PA-C bisacodyl (Dulcolax (bisacodyl)) 20 mg (4 x 5 mg) PO ONCE PRN 1 day nicotine 1 patch transdermal Q24H nicotine 1 patch transdermal DAILY 14 days polyethylene glycol 3350 (Miralax) 238 grams PO ONCE PRN 1 day Tobacco use date assessed: 07/02/24 Dental Screening Dental Screen Date: 07/02/24 Did you have a dental visit in the last 12 months?: Yes Did you have a dental problem in the last 6 months where you did not have access to dental care?: No Was dental information given to patient?: Patient has dentist HPI 3mof\u 2 HPI0 Details Patient is a 53 year male here today for a follow-up visit. Patient has past medical history significant for obesity and former smoker. He reports he has been a smoker over the last 25 years. Has followed up with lung cancer screening program received a low-dose CT scan which did show non concerning pulmonary nodules which will be followed on an annual basis. Concern--> continues to have left hip pain that radiates down his lateral thigh. He reports his pain has been evident over the last 6 months and originally thought it was a left groin strain though has not gotten any better. He is noted some muscle atrophy in his left thigh and has been walking with a limp. Former smoker: He reports over the last 2 weeks he has quit smoking with nicotine patches. He is proud of this and I congratulated him. He would like to continue 14 mg patches. Hypertension: Noted elevated blood pressure readings today in office. He does not monitor his blood pressure at home. He otherwise is asymptomatic. He is now willing to start blood pressure medication. [facility] Medical History Nicotine dependence, cigarettes, uncomplicated Surgical History Hx of colonoscopy Family History Mother Liver cancer Father Heart attack, Onset Age: 69 Diabetes Brother Diabetes Social History Housing: House Alcohol intake: current Alcohol intake frequency: a few times a week Alcohol type: beer Patient Tobacco Use Status: Current everyday Tobacco user Tobacco use type: Cigarette Cigarette Packs Per Day: 1 Cigarettes Per Day: 20.0 Years Smoked: (onset 19yo, 1ppd x 34yrs, 30+PYH) e-Cigarette/Vaping Use: Never Used service: No Current occupational status: employed 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 Rick Alonzo, Noemy Neal, Juan R Plascencia and colleagues, with an educational obey from [email or web address]. Review of Systems Const Denies headache(s) Eyes Denies loss of vision ENT Denies vertigo, Denies dizziness, Denies headache(s) and Denies sore throat Card Denies chest pain, Denies leg edema and Denies lightheadedness Resp Denies cough, Denies hemoptysis and Denies wheezing GI Denies abdominal pain, Denies melena, Denies constipation, Denies diarrhea and Denies vomiting Denies dysuria, Denies urinary frequency and Denies urinary urgency Musc Denies arthralgias, Denies joint swelling, Denies numbness and Denies tingling Neuro Denies Abnormal speech present, Denies behavioral changes, Denies vertigo, Denies dizziness, Denies headache(s), Denies loss of vision, Denies memory loss, Denies numbness and Denies tingling Psych Denies anxiety, Denies behavioral changes, Denies depression, Denies memory loss and Denies panic attacks Gerald/Lymph Denies easy bleeding and Denies easy bruising Aller/Immun Denies wheezing Physical exam (Primary Care) Tobacco/Smoking Status: Tobacco use Status Tobacco use date assessed 10/03/23 03/30/24 15:29 Patient Tobacco Use Status Current everyday Tobacco 06/04/24 09:31 Tobacco use type Cigarette 06/04/24 08:28 e-Cigarette/Vaping Use Never Used 03/30/24 15:29 Thrive Assessment: Date of Thrive Assessment Date Thrive assessed 03/30/24 03/30/24 15:32 Const General: healthy appearing, no acute distress, alert and awake Nutritional Appearance: well nourished Orientation/consciousness: oriented to person, oriented to place and oriented to time HENMT Ears: TM's normal bilaterally General nose exam: Normal nasal mucous membranes and turbinates present Eyes Conjunctivae: conjunctivae normal Sclerae: sclerae normal Pupils: Equal, round and reactive pupils present Neck Neck: Yes no lymphadenopathy and Yes no JVD Thyroid: Thyroid normal Carotids: no bruits Resp Effort & Inspection: normal respiratory effort and not tachypneic Auscultation: no crackles, no rales, no rhonchi and no wheezes Cardio Rate: regular rate Rhythm: regular rhythm Heart sounds: no murmurs and normal S1 and S2 GI Palpation (GI): Soft to palpation, nontender, no hepatomegaly and no splenomegaly Auscultation: normal bowel sounds Skin General skin exam: no rashes or lesions noted and dry skin Neuro General: oriented to person, oriented to place and oriented to time Cranial nerves: Yes Equal, round and reactive pupils present Speech: No Abnormal speech present Gait exam (Neuro): Normal gait present Motor exam (neuro): no tremor noted Extrem Right upper extremity: full ROM Left upper extremity: full ROM Right lower extremity: full ROM; no edema Left lower extremity: full ROM; no edema Upper/lower leg/hip images: 2 1. NOTED MUSCLE ATROPHY OF THE LEFT THIGH 2. NOTED MUSCULAR PROMINENCE OVER THE LATERAL LEFT HIP Psych Mental Status: mental status grossly normal Speech and movement: Normal speech and movement present Affect: normal affect Attitude: cooperative Thought process: Normal thought process present Assessment and Plan Assessment & Plan (1) HTN (hypertension): Code(s): I10 - Essential (primary) hypertension Qualifiers: Hypertension type: primary hypertension Qualified Code(s): I10 - Essential (primary) hypertension Plan: Patient's blood pressure remains elevated. Now willing to start lisinopril 10 mg with goal blood pressure to be below 140/90. We did discuss low-sodium diet and continuing to stay away from smoking cigarettes. (2) Hip pain, left: Code(s): M25.552 - Pain in left hip Plan: Patient has a six-month history of chronic left hip pain. Does have a prominence over his greater trochanteric region. Seems to have greater trochanteric bursitis. Does have some significant muscle atrophy in his thighs. Offered him physical therapy though feels he does not have any time for this at this time due to work. Will send for x-rays to evaluate for any advanced osteoarthritis in the left hip. Orders: Orders 2 XR hip LT min 2V Today M25.552 - Pain in left hip Lipid Panel Today I10 - Essential (primary) hypertension Medications: New 2 lisinopril 10 mg PO DAILY 30 days 30 tabs 1RF I10 - Essential (primary) hypertension Refilled 2 nicotine 1 patch transdermal DAILY 14 days 14 ea 2RF F17.200 - Nicotine dependence, unspecified, uncomplicated Discontinued 2 nicotine Discontinued Reason: Doctor's Order 1 patch transdermal Q24H 14 ea 1RF F17.210 - Nicotine dependence, cigarettes, uncomplicated Coding Level of Care Code Est Pt Level 4 (66553) Diagnoses Primary hypertension I10 Hypertension type: primary hypertension Hip pain, left M25.552
== END 2024-07-02 15:24 | disposition home or self-care (01) ==
PROVIDERS: PCP Physician Assistant; Visit Provider Physician Assistant
DX: I10 Essential (primary) hypertension (principal); M25.552 Pain in left hip

== ENCOUNTER → 2024-07-02 14:43 | Outpatient (BNVA) | payer OTHER, SELFPAY | PROVIDERS: PCP Physician Assistant; Visit Provider Physician Assistant | DX: I10 Essential (primary) hypertension (principal); M25.552 Pain in left hip; F17.210 Nicotine dependence, cigarettes, uncomplicated ==

== ENCOUNTER 2024-07-18 07:05 | Outpatient (REF) | payer OTHER, SELFPAY ==
[2024-07-18 07:41] LABS: Hematocrit 40.4 % (42.0-52.0); Hemoglobin 14.1 g/dl (14.0-18.0); Mean Corpuscular HGB Conc 34.9 g/dl (31.0-36.0); Mean Corpuscular Hemoglobin 33.3 pg (27.0-33.0); Mean Corpuscular Volume 95.3 fL (80.0-98.0); Mean Platelet Volume 9.1 fL (9.4-12.4); Platelet Count 154 X10*3/uL (160-400); Red Blood Count 4.24 X10*6/uL (4.60-5.80); Red Cell Distribution Width 12.5 % (11.0-16.0); White Blood Count 5.1 X10*3/uL (4.8-10.8)
[2024-07-18 08:04] LABS: Alanine Aminotransferase 83 U/L (0-40); Albumin Level 3.8 g/dL (3.5-5.0); Alkaline Phosphatase 83 U/L (39-117); Anion Gap 14 (12-20); Aspartate Amino Transferase 60 U/L (5-37); Bilirubin Total 0.5 mg/dL (0.0-1.0); Blood Urea Nitrogen 17 mg/dL (9-16); Calcium 9.4 mg/dL (8.4-10.2); Carbon Dioxide 25 mmol/L (22-29); Chloride 104 mmol/L (96-108); Cholesterol 152 mg/dL (<200); Estimated Glomerular Filt Rate > 60; Glucose Fasting 119 mg/dL (60-99); HDL Cholesterol 26 mg/dL (>40); Potassium 4.9 mmol/L (3.3-5.1); Sodium 138 mmol/L (135-145); Total Protein 8.1 g/dL (6.5-8.0); Triglycerides 534 mg/dL (<150)
[2024-07-18 08:25] LABS: Prostate Specific Antigen Scr < 0.10 ng/mL (<0.05-4.0)
== END 2024-07-18 07:06 | disposition home or self-care (01) ==
LOC: HO.LAB 07:05
PROVIDERS: PCP Physician Assistant; Visit Provider Physician Assistant
DX: Z13.1 Encounter for screening for diabetes mellitus (principal); I10 Essential (primary) hypertension; Z12.5 Encounter for screening for malignant neoplasm of prostate; M25.552 Pain in left hip
CPT/HCPCS: 36415; 73502; 80053; 80061; 84153; 85027

== ENCOUNTER 2024-08-05 07:44 | Outpatient (REF) | payer OTHER, SELFPAY | END 2024-08-05 07:45 | disposition home or self-care (01) | LOC: HO.US 07:44 | PROVIDERS: PCP Physician Assistant; Visit Provider Physician Assistant | DX: R74.8 Abnormal levels of other serum enzymes (principal) | CPT/HCPCS: 76700 ==

== ENCOUNTER 2024-08-13 10:17 | Outpatient (AMB) | payer OTHER, SELFPAY ==
--- NOTE | 2024-08-13 10:41 | MHC.PC.OV ---
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 Patient has past medical history significant for obesity and former smoker. He reports he has been a smoker over the last 25 years. Has followed up with lung cancer screening program received a low-dose CT scan which did show non concerning pulmonary nodules which will be followed on an annual basis. Concern--> continues to have left hip pain that radiates down his lateral thigh. He reports his pain has been evident over the last 7 months and originally thought it was a left groin strain from slipping on ice though has not gotten any better. He is noted some muscle atrophy in his left thigh and has been walking with a limp. X-rays have been done though waiting radiology review. Took a personal look at the x-ray and does seem to have advanced arthritis or necrosis appearing. Patient does drink a few beers per day.. Former smoker: Patient reports he has reduced his smoking to only 1-2 cigarettes per day at most. Hypertension: Patient has been started on lisinopril and blood pressure slightly better though still remains elevated. PLAN: Will increase his lisinopril to 20 mg for better blood pressure control He otherwise is asymptomatic. He is now willing to start blood pressure medication. [facility] Medical History Nicotine dependence, cigarettes, uncomplicated Surgical History Hx of colonoscopy Family History Mother Liver cancer Father Heart attack, Onset Age: 69 Diabetes Brother Diabetes Social History Housing: House Alcohol intake: current Alcohol intake frequency: a few times a week Alcohol type: beer Patient Tobacco Use Status: Current everyday Tobacco user Tobacco use type: Cigarette Cigarette Packs Per Day: 1 Cigarettes Per Day: 20.0 Years Smoked: (onset 19yo, 1ppd x 34yrs, 30+PYH) e-Cigarette/Vaping Use: Never Used service: No Current occupational status: employed 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 Rick Alonzo, Noemy Neal, Juan R Plascencia and colleagues, with an educational obey from [employer]. Review of Systems Const Denies headache(s) Eyes Denies loss of vision ENT Denies vertigo, Denies dizziness, Denies headache(s) and Denies sore throat Card Denies chest pain, Denies leg edema and Denies lightheadedness Resp Denies cough, Denies hemoptysis and Denies wheezing GI Denies abdominal pain, Denies melena, Denies constipation, Denies diarrhea and Denies vomiting Denies dysuria, Denies urinary frequency and Denies urinary urgency Musc Denies arthralgias, Denies joint swelling, Denies numbness and Denies tingling Neuro Denies Abnormal speech present, Denies behavioral changes, Denies vertigo, Denies dizziness, Denies headache(s), Denies loss of vision, Denies memory loss, Denies numbness and Denies tingling Psych Denies anxiety, Denies behavioral changes, Denies depression, Denies memory loss and Denies panic attacks Gerald/Lymph Denies easy bleeding and Denies easy bruising Aller/Immun Denies wheezing Physical exam (Primary Care) Vital Signs: Last Vital Signs Pulse 80 08/13/24 10:47 BP 146/68 H 08/13/24 10:47 Pulse Ox 95 08/13/24 10:47 Oxygen Delivery Method Room Air 08/13/24 10:47 BMI result Body Mass Index 29.6 Tobacco/Smoking Status: Tobacco use Status Tobacco use date assessed 07/02/24 08/13/24 10:41 Patient Tobacco Use Status Current everyday Tobacco 08/13/24 10:41 Tobacco use type Cigarette 08/13/24 10:41 e-Cigarette/Vaping Use Never Used 08/13/24 10:41 Thrive Assessment: Date of Thrive Assessment Date Thrive assessed 03/30/24 08/13/24 10:41 Const General: healthy appearing, no acute distress, alert and awake Nutritional Appearance: well nourished Orientation/consciousness: oriented to person, oriented to place and oriented to time HENMT Ears: TM's normal bilaterally General nose exam: Normal nasal mucous membranes and turbinates present Eyes Conjunctivae: conjunctivae normal Sclerae: sclerae normal Pupils: Equal, round and reactive pupils present Neck Neck: Yes no lymphadenopathy and Yes no JVD Thyroid: Thyroid normal Carotids: no bruits Resp Effort & Inspection: normal respiratory effort and not tachypneic Auscultation: no crackles, no rales, no rhonchi and no wheezes Cardio Rate: regular rate Rhythm: regular rhythm Heart sounds: no murmurs and normal S1 and S2 GI Palpation (GI): Soft to palpation, nontender, no hepatomegaly and no splenomegaly Auscultation: normal bowel sounds Skin General skin exam: no rashes or lesions noted and dry skin Neuro General: oriented to person, oriented to place and oriented to time Cranial nerves: Yes Equal, round and reactive pupils present Speech: No Abnormal speech present Gait exam (Neuro): Normal gait present Motor exam (neuro): no tremor noted Extrem Other: LEFT THIGH WITH NOTABLE MUSCLE ATROPHY, PATIENT AMBULATING WITH AN ANTALGIC GAIT. LIMITED RANGE OF MOTION OF THE LEFT HIP. Right upper extremity: full ROM Left upper extremity: full ROM Right lower extremity: full ROM; no edema Left lower extremity: abnormal ROM and no edema Psych Mental Status: mental status grossly normal Speech and movement: Normal speech and movement present Affect: normal affect Attitude: cooperative Thought process: Normal thought process present Office Procedures Flu Questionnaire Does the patient have a severe egg allergy?: No Immunizations Fluarix Triv [id number] (PF) 45 mcg (15 mcg x 3)/0.5 mL IM syringe Performing Provider: Gautam Cheema PA-C Performing Location: [facility] Documented (not given) by: JUAN Koenig on 08/13/24 10:48 Reason Not Given: Patient Refused Coding Level of Care Code Est Pt Level 4 (80772) Diagnoses Primary osteoarthritis of left hip M16.12 Osteoarthritis type: primary Primary hypertension I10 Hypertension type: primary hypertension Nicotine dependence, cigarettes, uncomplicated F17.210 Assessment & Plan Assessment & Plan (1) Osteoarthritis of left hip: Code(s): M16.12 - Unilateral primary osteoarthritis, left hip Category: Medical Qualifiers: Osteoarthritis type: primary Qualified Code(s): M16.12 - Unilateral primary osteoarthritis, left hip Plan: Patient appears to have pretty severe arthritis in his left hip. Will refer to orthopedics for re-evaluation for total hip arthroplasty (2) HTN (hypertension): Code(s): I10 - Essential (primary) hypertension Category: Medical Qualifiers: Hypertension type: primary hypertension Qualified Code(s): I10 - Essential (primary) hypertension Plan: Patient's blood pressure still remains slightly elevated. Continues on lisinopril 10 mg without any side effect. Will increase his lisinopril 20 mg for better blood pressure control. Advised to start monitoring his blood pressure at home. Goal blood pressures to be below 140/90 (3) Nicotine dependence, cigarettes, uncomplicated: Comment: (onset 19yo, 1ppd x 34yrs, 30+PYH) Code(s): F17.210 - Nicotine dependence, cigarettes, uncomplicated Category: Medical Plan: Patient does admit to smoking a cigarette from time to time though generally has stopped smoking. Orders: Orders Influenza [id number] Immunization Today Z23 - Encounter for immunization Referrals Orthopedics Referral M16.12 - Unilateral primary osteoarthritis, left hip Medications: New lisinopril 20 mg PO DAILY 30 tabs 2RF 30 days I10 - Essential (primary) hypertension gemfibrozil 600 mg PO BID 60 tabs 3RF 30 days E78.1 - Pure hyperglyceridemia Discontinued lisinopril Discontinued Reason: Doctor's Order 10 mg PO DAILY 30 days 30 tabs 1RF I10 - Essential (primary) hypertension
[2024-08-13 10:47] VITALS: BP 146/68; PULSE 80; O2SAT 95; BMI 29.6
== END 2024-08-13 11:07 | disposition home or self-care (01) ==
LOC: HO.HMCH 10:18
PROVIDERS: PCP Physician Assistant; Visit Provider Physician Assistant
DX: M16.12 Unilateral primary osteoarthritis, left hip (principal); I10 Essential (primary) hypertension; F17.210 Nicotine dependence, cigarettes, uncomplicated; Z23 Encounter for immunization

== ENCOUNTER → 2024-08-13 10:17 | Outpatient (BNVA) | payer OTHER, SELFPAY | PROVIDERS: PCP Physician Assistant; Visit Provider Physician Assistant | DX: M16.12 Unilateral primary osteoarthritis, left hip (principal); I10 Essential (primary) hypertension; F17.210 Nicotine dependence, cigarettes, uncomplicated; Z79.899 Other long term (current) drug therapy | CPT/HCPCS: 90471 ==

== ENCOUNTER 2024-09-14 13:52 | Outpatient (AMB) | payer OTHER, SELFPAY ==
--- NOTE | 2024-09-14 13:54 | A.OFFVIS_ITS ---
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 Patient reports that he has had ongoing left hip pain for about 1 year now. His pain is felt in the groin and wraps around the hip. He takes ibuprofen for the pain which only offers mild relief. No previous treatment. He has pain with any movement. 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 Patient reports that he has had ongoing left hip pain for about 1 year now. His pain is felt in the groin and wraps around the hip. He takes ibuprofen for the pain which only offers mild relief. No previous treatment. He has pain with any movement. He can not walk comfortably. The quality of his life is diminished. He limps everywhere. [facility] Medical History Nicotine dependence, cigarettes, uncomplicated Surgical History Hx of colonoscopy Family History Mother Liver cancer Father Heart attack, Onset Age: 69 Diabetes Brother Diabetes Social History Housing: House Alcohol intake: current Alcohol intake frequency: a few times a week Alcohol type: beer Patient Tobacco Use Status: Current everyday Tobacco user Tobacco use type: Cigarette Cigarette Packs Per Day: 1 Cigarettes Per Day: 20.0 Years Smoked: (onset 19yo, 1ppd x 34yrs, 30+PYH) e-Cigarette/Vaping Use: Never Used service: No Current occupational status: employed 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 Pain with rotation of the left hip that is severe. Results Reviewed Results Reviewed: I personally reviewed relevant radiographs. 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 He can not walk and the quality of his life is severely diminished. He is a candidate for hip arthroplasty. I recommend hip arthroplasty. I described this procedure to him. I have described the risks, benefits and alternatives to him including, but not limited to, the risk of infection, stiffness, dislocation, fracture as well as medical complications associated with surgery. He is a smoker and he is weaning down. I recommend, strongly, that he quit smoking prior to arthroplasty. He promises me he will do it. I answered his questions. I introduced him to our surgical navigator. (2) Nicotine dependence, cigarettes, uncomplicated: Comment: (onset 19yo, 1ppd x 34yrs, 30+PYH) Code(s): F17.210 - Nicotine dependence, cigarettes, uncomplicated Category: Medical Plan: Is quitting. Has a patch and gum. Orders: Orders PT Evaluation and Treatment 09/14/24 M24.811 - Other specific joint derangements of right shoulder, not elsewhere classified, M24.812 - Other specific joint derangements of left shoulder, not elsewhere classified Coding Level of Care Code New Pt Level 4 (78894) Diagnoses Avascular necrosis of bone of left hip M87.052 Nicotine dependence, cigarettes, uncomplicated F17.210
[2024-09-14 13:56] VITALS: BMI 29.5
== END 2024-09-14 15:28 | disposition home or self-care (01) ==
PROVIDERS: PCP Physician Assistant; Visit Provider Orthopaedic Surgery
DX: M87.052 Idiopathic aseptic necrosis of left femur (principal); F17.210 Nicotine dependence, cigarettes, uncomplicated
CPT/HCPCS: 99204

== ENCOUNTER 2024-10-06 10:42 | Outpatient (AMB) | payer OTHER, SELFPAY ==
[2024-10-06 10:45] VITALS: BP 120/70; PULSE 82; O2SAT 96; BMI 29.2
--- NOTE | 2024-10-06 10:45 | A.OFFPC_ITS ---
Vital Signs 10/06/24 10:45 Height 5 ft 9 in Weight 197 lb 8 oz BMI 29.2 BP 120/70 Blood Pressure Location Lt brachial Position Sitting Pulse 82 Pulse Source Pulse Oximeter Pulse Oximetry (%) 96 Oxygen Delivery Method Room Air Intake Visit Reasons: f/u HTN Ug Designer Required: No Accompanied by: Self / Same As Patient Allergies No Known Allergies Allergy (Verified 10/08/24 05:15) Medication List - Last Reconciled 10/08/24 by Brooks Chris MD bisacodyl (Dulcolax (bisacodyl)) 20 mg (4 x 5 mg) PO ONCE PRN 1 day gemfibrozil 600 mg PO BID 30 days lisinopril 20 mg PO DAILY 30 days nicotine 1 patch transdermal DAILY 14 days polyethylene glycol 3350 (Miralax) 238 grams PO ONCE PRN 1 day walker Folding front wheeled walker Tobacco use date assessed: 10/06/24 Dental Screening Dental Screen Date: 10/06/24 Did you have a dental visit in the last 12 months?: No Did you have a dental problem in the last 6 months where you did not have access to dental care?: No Was dental information given to patient?: No HPI f/u HTN HPI Details Patient comes in today for his follow up visit States that he feels okay He denies any headaches or dizziness Denies any chest pains, no SOB No nausea/vomiting, no abdominal pain No change in bowel habits noted [facility] Medical History (Updated 10/08/24 @ 05:22 by Brooks Chris MD) Overweight (BMI 25.0-29.9) Smoker Essential hypertension Nicotine dependence, cigarettes, uncomplicated Surgical History Hx of colonoscopy Family History Mother Liver cancer Father Heart attack, Onset Age: 69 Diabetes Brother Diabetes Social History Housing: House Alcohol intake: current Alcohol intake frequency: a few times a week Alcohol type: beer Patient Tobacco Use Status: Current everyday Tobacco user Tobacco use type: Cigarette Cigarette Packs Per Day: 1 Cigarettes Per Day: 20.0 Years Smoked: (onset 19yo, 1ppd x 34yrs, 30+PYH) Packs Per Year: 0 Packs per year/per ci.00 e-Cigarette/Vaping Use: Never Used service: No Current occupational status: employed 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 1. Little interest or pleasure in doing things: not at all 2. Feeling down, depressed, or hopeless: not at all 3. Trouble falling or staying asleep, or sleeping too much: not at all 4. Feeling tired or having little energy: not at all 5. Poor appetite or overeating: not at all 6. Feeling bad about yourself - or that you are a failure or have let yourself or your family down: not at all 7. Trouble concentrating on things, such as reading the newspaper or watching television: not at all 8. Moving or speaking so slowly that other people could have noticed. Or the opposite - being so fidgety or restless that you have been moving around a lot more than usual: not at all 9. Thoughts that you would be better off or of hurting yourself in some way: not at all Total score: 0 Depression Screening Interpretation: Negative Depression Screening Done: Yes 15743 - PHQ-9 Billing: Yes Source: Developed by Drs. Rick Alonzo, Noemy Neal, Juan R Plascencia and colleagues, with an educational obey from [employer]. Thrive Questionnaire Date Thrive assessed: 10/06/24 I am a: Patient What is your living situation today?: I have a steady place to live Within the past 12 months, did the food you bought not last and you didn't have the money to get more?: Never true Within the past 12 months, did you worry whether your food would run out before you got money to buy more?: Never true Do you have trouble paying for medicines?: No Do you have trouble getting transportation to medical appointments?: No Do you have trouble paying your heating and electricity bill?: No Do you have trouble taking care of your child, family member or friend?: No Do you have trouble with day-to-day activities such as bathing, preparing meals, shopping, managing finances, etc.?: No Are you currently unemployed and looking for a job?: No Are you interested in more education?: No Please select the resources that you would like help with: None Currently or been in a relationship where the following occur: No concerns reported THRIVE Score: 0 AUDIT C Alcohol Use Questionnaire (AUDIT-C) 1. How often do you have a drink containing alcohol?: Monthly or less 2. How many drinks containing alcohol do you have on a typical day when you are drinking?: 3 or 4 3. How often do you have six or more drinks on one occasion?: Never Total Score: 2 Score Reviewed/Action Taken: Yes LUIS DANIEL-7 AMB Questionnaire LUIS DANIEL-7 Date LUIS DANIEL - 7 assessed: 10/06/24 Feeling nervous, anxious, or on edge: 0 = Not at all Not being able to stop or control worryin = Not at all Worrying too much about different things: 0 = Not at all Trouble relaxin = Not at all Being so restless that it is hard to sit still: 0 = Not at all Becoming easily annoyed or irritable: 0 = Not at all Feeling afraid as if something awful might happen: 0 = Not at all Total LUIS DANIEL-7 score (0-4 normal; 5-9 mild; 10-14 moderate; 15-21 severe): 0 Source: Developed by Drs. Rick Alonzo, Noemy Neal, Juan R Plascencia and colleagues, with an educational obey from [employer]. Review of Systems Const Denies chills, Denies fatigue, Denies fever(s) and Denies headache(s) ENT Denies dysphagia, Denies dizziness, Denies otalgia, Denies headache(s), Denies neck pain, Denies odynophagia and Denies sore throat Card Denies chest pain, Denies irregular heart rhythm, Denies palpitations and Denies dyspnea Resp Denies chest congestion, Denies cough and Denies dyspnea GI Denies abdominal pain, Denies constipation, Denies dysphagia, Denies heartburn, Denies diarrhea, Denies nausea, Denies odynophagia and Denies vomiting Denies difficulty urinating, Denies dysuria, Denies nocturia and Denies urinary frequency Musc Denies back pain, Denies arthralgias and Denies neck pain Skin/Breast Denies rash Neuro Denies dizziness and Denies headache(s) Endo Denies fatigue and Denies palpitations Physical exam (Primary Care) Vital Signs: Last Vital Signs Pulse 82 10/06/24 10:45 BP 120/70 10/06/24 10:45 Pulse Ox 96 10/06/24 10:45 Oxygen Delivery Method Room Air 10/06/24 10:45 BMI result Body Mass Index 29.2 Tobacco/Smoking Status: Tobacco use Status Tobacco use date assessed 10/06/24 10/06/24 10:51 Patient Tobacco Use Status Current everyday Tobacco 10/06/24 10:51 Tobacco use type Cigarette 10/06/24 10:51 e-Cigarette/Vaping Use Never Used 10/06/24 10:51 PHQ-9: PHQ-9 Score PHQ-9: Total score 0 10/06/24 11:09 Depression Screening Interpretation: Negative Thrive Assessment: Date of Thrive Assessment Date Thrive assessed 10/06/24 10/06/24 10:51 Currently or been in a relationship where the following occur: No concerns reported Const General: no acute distress and alert HENMT Ears: TM's normal bilaterally and EAC's normal Throat: Yes posterior oropharynx normal and Yes tonsils normal (no TP congestion) Neck Neck: Yes supple and No lymphadenopathy Thyroid: Thyroid normal Resp Auscultation: clear to auscultation bilaterally, no rales and no wheezes Cardio Rate: regular rate Rhythm: regular rhythm Heart sounds: no murmurs GI Palpation (GI): Soft to palpation, nontender and No hepatosplenomegaly present Skin General skin exam: no rashes or lesions noted Extrem General: Yes no clubbing, cyanosis or edema Coding Level of Care Code Est Pt Level 3 (23327) Diagnoses Essential hypertension I10 Hypertriglyceridemia E78.1 Avascular necrosis of bone of left hip M87.052 Smoker F17.200 Overweight (BMI 25.0-29.9) E66.3 Additional Codes PHQ-9 - 10445 - PHQ-9 Billing: Yes ([id number]) Assessment & Plan Assessment & Plan (1) Essential hypertension: Code(s): I10 - Essential (primary) hypertension Category: Social Hx Plan: Reinforced low sodium diet - goal is systolic BP of at least 120 to 130 mm or less Continue Lisinopril 20 mg QD Have advised patient to continue monitoring his blood pressure regularly (2) Hypertriglyceridemia: Code(s): E78.1 - Pure hyperglyceridemia Category: Medical Plan: Reinforced low cholesterol diet Continue Gemfibrozil 6t00 mg BID (3) Avascular necrosis of bone of left hip: Code(s): M87.052 - Idiopathic aseptic necrosis of left femur Category: Medical Plan: Follow up with orthopedics as scheduled (4) Smoker: Code(s): F17.200 - Nicotine dependence, unspecified, uncomplicated Category: Social Hx Plan: Patient is counseled again on complete smoking cessation (5) Overweight (BMI 25.0-29.9): Code(s): E66.3 - Overweight Category: Medical Plan: Reinforced diet; exercise and weight loss are currently unrealistic given patient's multiple physical issues and comorbidities Plan To return as scheduled next month for his preop exam with his PCP
== END 2024-10-06 11:09 | disposition home or self-care (01) ==
PROVIDERS: PCP Physician Assistant; Visit Provider Internal Medicine
DX: I10 Essential (primary) hypertension (principal); E78.1 Pure hyperglyceridemia; M87.052 Idiopathic aseptic necrosis of left femur; F17.200 Nicotine dependence, unspecified, uncomplicated; E66.3 Overweight

== ENCOUNTER → 2024-10-06 10:42 | Outpatient (BNVA) | payer OTHER, SELFPAY | PROVIDERS: PCP Physician Assistant; Visit Provider Internal Medicine | DX: I10 Essential (primary) hypertension (principal); E87.1 Hypo-osmolality and hyponatremia; M87.052 Idiopathic aseptic necrosis of left femur; E66.3 Overweight; Z68.29 Body mass index [BMI] 29.0-29.9, adult; F17.200 Nicotine dependence, unspecified, uncomplicated; Z79.899 Other long term (current) drug therapy | CPT/HCPCS: 96127 ==

== ENCOUNTER 2024-10-21 10:59 | Outpatient (AMB) | payer OTHER, SELFPAY ==
[2024-10-21 11:13] VITALS: BP 128/72; PULSE 72; O2SAT 96; BMI 28.4
--- NOTE | 2024-10-21 11:13 | A.OFFPC_ITS ---
Vital Signs 10/21/24 11:13 Height 5 ft 9 in Weight 192 lb 8 oz BMI 28.4 BP 128/72 Blood Pressure Location Lt brachial Position Sitting Pulse 72 Pulse Source Pulse Oximeter Pulse Oximetry (%) 96 Oxygen Delivery Method Room Air Intake Visit Reasons: Robina soares/Dr. Roberson on 12/09/24 Intake Note: FMLA form needs to be completed. Grubber Required: No Accompanied by: Spouse-Magdalena Allergies No Known Allergies Allergy (Verified 11/03/24 08:30) Medication List - Last Reconciled 10/21/24 by Gautam Cheema PA-C bisacodyl (Dulcolax (bisacodyl)) 20 mg (4 x 5 mg) PO ONCE PRN 1 day gemfibrozil 600 mg PO BID 30 days lisinopril 20 mg PO DAILY 30 days nicotine 1 patch transdermal DAILY 14 days polyethylene glycol 3350 (Miralax) 238 grams PO ONCE PRN 1 day walker Folding front wheeled walker Tobacco use date assessed: 10/21/24 Dental Screening Dental Screen Date: 10/21/24 Did you have a dental problem in the last 6 months where you did not have access to dental care?: No Was dental information given to patient?: No (Pt has dentures) HPI Robina soares/Dr. Roberson on 12/09/24 HPI Details Patient is a 54-year-old male here today for preop visit. He is due for a left total hip arthroplasty in 12/03/2024. Patient has a past medical history significant for essential hypertension, Hyperlipidemia tobacco dependency, emphysema. Patient has no history of CVA, DE or Congestive heart failure. He is not on any anticoagulation or antiplatelet therapy at this time. .. Hypertension: Patient's blood pressure acceptable today in office. Will continue his current dose of lisinopril 20 mg .. Tobacco use disorder: Has been trying to reduce his smoking with nicotine replacement which has been helpful. [facility] Medical History (Updated 11/09/24 @ 10:13 by Joan Estrada, PATRICIA) Quit smoking Osteoarthritis Varicose vein of leg Wears glasses Wears dentures Use of cane as ambulatory aid HLD (hyperlipidemia) Overweight (BMI 25.0-29.9) Smoker Essential hypertension Nicotine dependence, cigarettes, uncomplicated Surgical History (Updated 11/09/24 @ 09:51 by Joan Estrada, PATRICIA) Hx of colonoscopy (~07/2024) Family History Mother Liver cancer Father Heart attack, Onset Age: 69 Diabetes Brother Diabetes Social History (Updated 11/09/24 @ 10:08 by Joan Estrada RN) Household Members: Spouse Housing: House Are you a primary client care coordinator to a significant other at home: No Do you presently have visiting nurse or other home services: No Alcohol intake: current Alcohol intake frequency: a few times a week Alcohol type: beer Patient Tobacco Use Status: Former Tobacco user Tobacco use type: Cigarette Years Smoked: (onset 19yo, 1ppd x 34yrs, 30+PYH) e-Cigarette/Vaping Use: Never Used Second Hand Smoke Exposure: No service: No Current occupational status: employed 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 1. Little interest or pleasure in doing things: not at all 2. Feeling down, depressed, or hopeless: not at all 3. Trouble falling or staying asleep, or sleeping too much: not at all 4. Feeling tired or having little energy: not at all 5. Poor appetite or overeating: not at all 6. Feeling bad about yourself - or that you are a failure or have let yourself or your family down: not at all 7. Trouble concentrating on things, such as reading the newspaper or watching television: not at all 8. Moving or speaking so slowly that other people could have noticed. Or the opposite - being so fidgety or restless that you have been moving around a lot more than usual: not at all 9. Thoughts that you would be better off or of hurting yourself in some way: not at all Total score: 0 Depression Screening Interpretation: Negative Depression Screening Done: Yes 02353 - PHQ-9 Billing: Yes Source: Developed by Drs. Rick Alonzo, Noemy Neal, Juan R Plascencia and colleagues, with an educational obey from [employer]. Thrive Questionnaire Date Thrive assessed: 10/21/24 I am a: Patient What is your living situation today?: I have a steady place to live Within the past 12 months, did the food you bought not last and you didn't have the money to get more?: Never true Within the past 12 months, did you worry whether your food would run out before you got money to buy more?: Never true Do you have trouble paying for medicines?: No Do you have trouble getting transportation to medical appointments?: No Do you have trouble paying your heating and electricity bill?: No Do you have trouble taking care of your child, family member or friend?: No Do you have trouble with day-to-day activities such as bathing, preparing meals, shopping, managing finances, etc.?: No Are you currently unemployed and looking for a job?: No Are you interested in more education?: No Please select the resources that you would like help with: None Currently or been in a relationship where the following occur: No concerns reported THRIVE Score: 0 AUDIT C Alcohol Use Questionnaire (AUDIT-C) 1. How often do you have a drink containing alcohol?: Monthly or less 2. How many drinks containing alcohol do you have on a typical day when you are drinking?: 1 or 2 3. How often do you have six or more drinks on one occasion?: Never Total Score: 1 Score Reviewed/Action Taken: Yes LUIS DANIEL-7 AMB Questionnaire LUIS DANIEL-7 Date LUIS DANIEL - 7 assessed: 10/21/24 Feeling nervous, anxious, or on edge: 0 = Not at all Not being able to stop or control worryin = Not at all Worrying too much about different things: 0 = Not at all Trouble relaxin = Not at all Being so restless that it is hard to sit still: 0 = Not at all Becoming easily annoyed or irritable: 0 = Not at all Feeling afraid as if something awful might happen: 0 = Not at all Total LUIS DANIEL-7 score (0-4 normal; 5-9 mild; 10-14 moderate; 15-21 severe): 0 Source: Developed by Drs. Rick Alonzo, Noemy Neal, Juan R Plascencia and colleagues, with an educational obey from [employer] LUIS DANIEL-7 Assessment Billing LUIS DANIEL-7 Assessment Tool: LUIS DANIEL-7 Assessment 44943 Review of Systems Const Denies headache(s) Eyes Denies loss of vision ENT Denies vertigo, Denies dizziness, Denies headache(s) and Denies sore throat Card Denies chest pain, Denies leg edema and Denies lightheadedness Resp Denies cough, Denies hemoptysis and Denies wheezing GI Denies abdominal pain, Denies melena, Denies constipation, Denies diarrhea and Denies vomiting Denies dysuria, Denies urinary frequency and Denies urinary urgency Musc Denies arthralgias, Denies joint swelling, Denies numbness and Denies tingling Neuro Denies Abnormal speech present, Denies behavioral changes, Denies vertigo, Denies dizziness, Denies headache(s), Denies loss of vision, Denies memory loss, Denies numbness and Denies tingling Psych Denies anxiety, Denies behavioral changes, Denies depression, Denies memory loss and Denies panic attacks Gerald/Lymph Denies easy bleeding and Denies easy bruising Aller/Immun Denies wheezing Physical exam (Primary Care) Vital Signs: Last Vital Signs Pulse 72 10/21/24 11:13 BP 128/72 10/21/24 11:13 Pulse Ox 96 10/21/24 11:13 Oxygen Delivery Method Room Air 10/21/24 11:13 BMI result Body Mass Index 28.4 Tobacco/Smoking Status: Tobacco use Status Tobacco use date assessed 10/21/24 10/21/24 11:22 Patient Tobacco Use Status Current everyday Tobacco 10/21/24 11:18 Tobacco use type Cigarette 10/21/24 11:18 e-Cigarette/Vaping Use Never Used 10/21/24 11:18 PHQ-9: PHQ-9 Score PHQ-9: Total score 0 11/17/24 07:35 Depression Screening Interpretation: Negative Thrive Assessment: Date of Thrive Assessment Date Thrive assessed 10/21/24 10/21/24 11:32 Currently or been in a relationship where the following occur: No concerns reported Const General: healthy appearing, no acute distress, alert and awake Nutritional Appearance: well nourished Orientation/consciousness: oriented to person, oriented to place and oriented to time HENMT Ears: TM's normal bilaterally General nose exam: Normal nasal mucous membranes and turbinates present Eyes Conjunctivae: conjunctivae normal Sclerae: sclerae normal Pupils: Equal, round and reactive pupils present Neck Neck: Yes no lymphadenopathy and Yes no JVD Thyroid: Thyroid normal Carotids: no bruits Resp Effort & Inspection: normal respiratory effort and not tachypneic Auscultation: no crackles, no rales, no rhonchi and no wheezes Cardio Rate: regular rate Rhythm: regular rhythm Heart sounds: no murmurs and normal S1 and S2 GI Palpation (GI): Soft to palpation, nontender, no hepatomegaly and no splenomegaly Auscultation: normal bowel sounds Skin General skin exam: no rashes or lesions noted and dry skin Neuro General: oriented to person, oriented to place and oriented to time Cranial nerves: Yes Equal, round and reactive pupils present Speech: No Abnormal speech present Gait exam (Neuro): Normal gait present Motor exam (neuro): no tremor noted Extrem Right upper extremity: full ROM Left upper extremity: full ROM Right lower extremity: full ROM; no edema Left lower extremity: full ROM; no edema Psych Mental Status: mental status grossly normal Speech and movement: Normal speech and movement present Affect: normal affect Attitude: cooperative Thought process: Normal thought process present Coding Level of Care Code Est Pt Level 4 (84711) Diagnoses Pre-op evaluation Z01.818 Avascular necrosis of bone of left hip M87.052 Primary hypertension I10 Hypertension type: primary hypertension Nicotine dependence, cigarettes, uncomplicated F17.210 Additional Codes LUIS DANIEL-7 Assessment Billing - LUIS DANIEL-7 Assessment Tool: LUIS DANIEL-7 Assessment 25074 ([id number]) PHQ-9 - 96174 - PHQ-9 Billing: Yes ([id number]) Assessment & Plan Assessment & Plan (1) Pre-op evaluation: Code(s): Z01.818 - Encounter for other preprocedural examination Category: Medical Plan: Patient's vitals today stable. Most recent labs showing a slight thrombocytopenia. Liver enzymes also elevated secondary to his fatty liver disease. EKG showing normal sinus rhythm. Patient a moderate CV risk for surgery. (2) Avascular necrosis of bone of left hip: Code(s): M87.052 - Idiopathic aseptic necrosis of left femur Category: Medical Plan: As above patient's left hip showing signs of avascular necrosis and needs total hip replacement. (3) HTN (hypertension): Code(s): I10 - Essential (primary) hypertension Category: Medical Qualifiers: Hypertension type: primary hypertension Qualified Code(s): I10 - Essential (primary) hypertension Plan: Patient's blood pressure today in office acceptable. Will continue his current dose of lisinopril with goal blood pressure to remain below 140/90 (4) Nicotine dependence, cigarettes, uncomplicated: Comment: (onset 19yo, 1ppd x 34yrs, 30+PYH) Code(s): F17.210 - Nicotine dependence, cigarettes, uncomplicated Category: Medical Plan: Patient using nicotine replacement patches to help reduce his smoking. Orders: Orders Comprehensive Met. Panel 10/21/24 Z01.818 - Encounter for other preprocedural examination ECG 12 lead EKG 10/21/24 Z01.818 - Encounter for other preprocedural examination Complete Blood Count no Diff 10/21/24 Z01.818 - Encounter for other preprocedural examination XR chest 2V 10/21/24 J43.9 - Emphysema, unspecified Medications: Changed From lisinopril 20 mg PO DAILY 30 days 30 tabs 2RF I10 - Essential (primary) hy pertension To lisinopril 20 mg PO DAILY 90 tabs 1RF 90 days I10 - Essential (primary) hypertension Refilled nicotine 1 patch transdermal DAILY 14 ea 3RF 14 days F17.200 - Nicotine dependence, unspecified, uncomplicated
== END 2024-10-21 11:58 | disposition home or self-care (01) ==
PROVIDERS: PCP Physician Assistant; Visit Provider Physician Assistant
DX: Z01.818 Encounter for other preprocedural examination (principal); M87.052 Idiopathic aseptic necrosis of left femur; I10 Essential (primary) hypertension; F17.210 Nicotine dependence, cigarettes, uncomplicated

== ENCOUNTER → 2024-10-21 10:59 | Outpatient (BNVA) | payer OTHER, SELFPAY | PROVIDERS: PCP Physician Assistant; Visit Provider Physician Assistant | DX: Z01.818 Encounter for other preprocedural examination (principal); M87.052 Idiopathic aseptic necrosis of left femur; I10 Essential (primary) hypertension; F17.210 Nicotine dependence, cigarettes, uncomplicated; Z79.899 Other long term (current) drug therapy | CPT/HCPCS: 96127 ==

== ENCOUNTER → 2024-11-03 08:14 | Outpatient (BNVA) | payer OTHER, SELFPAY | PROVIDERS: PCP Physician Assistant | DX: Z01.818 Encounter for other preprocedural examination (principal) ==

== ENCOUNTER → 2024-11-09 10:38 | Outpatient (BNV) | payer OTHER, SELFPAY | PROVIDERS: PCP Physician Assistant; Visit Provider Radiology Diagnostic Radiology | DX: J43.9 Emphysema, unspecified (principal) | CPT/HCPCS: 71046 ==

== ENCOUNTER → 2024-11-09 10:51 | Outpatient (BNV) | payer OTHER, SELFPAY | PROVIDERS: PCP Physician Assistant; Visit Provider Internal Medicine | DX: R94.31 Abnormal electrocardiogram [ECG] [EKG] (principal) | CPT/HCPCS: 93010 ==

== ENCOUNTER 2024-11-28 08:46 | Outpatient (REF) | payer OTHER, SELFPAY ==
[2024-11-28 09:19] LABS: Hematocrit 37.3 % (42.0-52.0); Mean Corpuscular HGB Conc 34.9 g/dl (31.0-36.0); Mean Corpuscular Hemoglobin 33.9 pg (27.0-33.0); Mean Corpuscular Volume 97.4 fL (80.0-98.0); Mean Platelet Volume 9.3 fL (9.4-12.4); Platelet Count 105 X10*3/uL (160-400); Red Blood Count 3.83 X10*6/uL (4.60-5.80); Red Cell Distribution Width 13.1 % (11.0-16.0); White Blood Count 6.3 X10*3/uL (4.8-10.8)
[2024-11-28 09:50] LABS: Alanine Aminotransferase 95 U/L (0-40); Albumin Level 3.5 g/dL (3.5-5.0); Alkaline Phosphatase 104 U/L (39-117); Anion Gap 14 (12-20); Aspartate Amino Transferase 104 U/L (5-37); Bilirubin Total 0.5 mg/dL (0.0-1.0); Blood Urea Nitrogen 15 mg/dL (9-16); Calcium 8.9 mg/dL (8.4-10.2); Carbon Dioxide 24 mmol/L (22-29); Chloride 105 mmol/L (96-108); Estimated Glomerular Filt Rate > 60; Glucose Random 118 mg/dL (60-115); Potassium 4.3 mmol/L (3.3-5.1); Sodium 139 mmol/L (135-145); Total Protein 7.8 g/dL (6.5-8.0)
== END 2024-11-28 08:47 | disposition home or self-care (01) ==
LOC: HO.LAB 08:46
PROVIDERS: Absent Provider Physician Assistant; PCP Physician Assistant; Visit Provider Physician Assistant
DX: Z01.818 Encounter for other preprocedural examination (principal)
CPT/HCPCS: 36415; 80053; 85027

== ENCOUNTER 2024-12-03 08:46 | Outpatient (AMB) | payer OTHER, SELFPAY ==
--- NOTE | 2024-12-03 08:56 | MHC.OFFVIS ---
Vital Signs 12/03/24 09:01 Height 5 ft 9 in Weight 192 lb BMI 28.4 Intake Visit Reasons: Pre Op - Left TAMI 12/09/24 NE Intake Note: Dustin is a 54 year old male who presents today for a pre op appointment for his left total hip arthroplasty 12/09/24 NE. Patient was given the pain management consent form. Allergies No Known Allergies Allergy (Verified 12/03/24 09:00) HPI HPI Pre Op - Left TAMI 12/09/24 NE: Details: Mr. Gabriel is a 54-year-old?male?who presents in the office today for?his?preoperative history and physical exam prior to a?left total hip arthroplasty?to be performed on?12/09/2024?by?Dr. Roberson.??Patient has a past medical history significant for hypertension taking lisinopril. No known drug allergies. Prior surgical history significant for colonoscopy only. [facility] Medical History (Updated 11/09/24 @ 10:13 by Joan Estrada RN) Quit smoking Osteoarthritis Varicose vein of leg Wears glasses Wears dentures Use of cane as ambulatory aid HLD (hyperlipidemia) Overweight (BMI 25.0-29.9) Smoker Essential hypertension Nicotine dependence, cigarettes, uncomplicated Surgical History Hx of colonoscopy (~07/2024) Family History Mother Liver cancer Father Heart attack, Onset Age: 69 Diabetes Brother Diabetes Social History Household Members: Spouse Housing: House Are you a primary childcare worker to a significant other at home: No Do you presently have visiting nurse or other home services: No 75 years or older and lives alone: No Alcohol intake: current Alcohol intake frequency: a few times a week Alcohol type: beer Patient Tobacco Use Status: Former Tobacco user Tobacco use type: Cigarette Years Smoked: (onset 19yo, 1ppd x 34yrs, 30+PYH) e-Cigarette/Vaping Use: Never Used Second Hand Smoke Exposure: No service: No Current occupational status: employed 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 Cognitive needs: No Hearing needs: No Vision needs: Yes Review of Systems Const All systems reviewed & are unremarkable except as noted in HPI and below Physical Exam Vital Signs: BMI result Body Mass Index 28.4 Const General: cooperative, healthy appearing, comfortable, no acute distress, well developed, alert and awake Orientation/consciousness: patient oriented x3 HEENT Head: Yes normal to inspection, Yes normocephalic and Yes atraumatic Eyes General: appearance normal, both eyes and all related structures Neck Neck: Yes normal visual inspection Resp Effort & Inspection: normal respiratory effort and able to speak in complete sentences Cardio Rate: regular rate Peripheral pulses: Peripheral pulses 2+ throughout Skin General skin exam: no rashes or lesions noted Neuro General: patient oriented x3 Extrem Other: Severe gait antalgia. Pain with rotation of the left hip that is severe. Psych Mental Status: mental status grossly normal Assessment & Plan Assessment & Plan (1) Avascular necrosis of bone of left hip: Code(s): M87.052 - Idiopathic aseptic necrosis of left femur Category: Medical Plan Mr. Gabriel is a 54-year-old?male?who presents in the office today for?his?preoperative history and physical exam prior to a?left total hip arthroplasty?to be performed on?12/09/2024?by?Dr. Roberson.??Patient has a past medical history significant for hypertension taking lisinopril. No known drug allergies. Prior surgical history significant for colonoscopy only. I discussed in detail the procedure and what to expect pre and post operatively. We discussed the risks, benefits and alternatives to the surgery as well as the rehabilitation course. The risks; which include, but are not limited to infection, bleeding, nerve injury, ongoing pain, swelling, and stiffness, perioperative risk of injury to bones and soft tissues, and blood clots. I?ve answered all questions and with their understanding they have consented to move forward with left total hip arthroplasty with Dr. Roberson. Patient is able to take Aspirin and Celebrex. X-rays of the left hip and pelvis which were obtained while in the office today for preoperative planning. No acute fracture or dislocation. Coding Level of Care Code Global (25357) Diagnoses Avascular necrosis of bone of left hip M87.052
[2024-12-03 09:01] VITALS: BMI 28.4
== END 2024-12-03 09:35 | disposition home or self-care (01) ==
PROVIDERS: PCP Physician Assistant; Visit Provider Physician Assistant
DX: M87.052 Idiopathic aseptic necrosis of left femur (principal)
CPT/HCPCS: 99024

== ENCOUNTER → 2024-12-03 08:46 | Outpatient (BNV) | payer OTHER, SELFPAY | PROVIDERS: Visit Provider Radiology Diagnostic Radiology | DX: M16.0 Bilateral primary osteoarthritis of hip (principal) | CPT/HCPCS: 73502 ==

== ENCOUNTER 2024-12-03 10:24 | Outpatient (REF) | payer OTHER, SELFPAY ==
--- NOTE | ~2024-12-03 | XR_ITS ---
EXAMINATION: XR HIP, LEFT CLINICAL INFORMATION: M25.559 - Pain in unspecified hip COMPARISON: July 18, 2024. TECHNIQUE: Two views of the left hip. FINDINGS: There is volume loss subchondral cyst formation and sclerosis of the articular surface, left femoral head. Sclerosis along the articular surface of the left acetabulum. No gross malalignment. Asymmetric joint space narrowing, left coxofemoral joint. No acute cortical disruption. There is sclerosis of the articular surface of the right acetabulum. Asymmetric joint space narrowing, right coxofemoral joint. Vascular calcifications. Sclerosis and the sacroiliac joints. XR/XR hip LT min 2V IMPRESSION: Moderate to severe osteoarthrosis, left hip. Mild osteoarthrosis right hip. Atherosclerosis disease, peripheral. Electronically signed by: Malcolm Solis MD 12/03/2024 02:09 PM SE[facility] CASTRO
== END 2024-12-03 10:25 | disposition home or self-care (01) ==
LOC: HO.HOSX 10:24
PROVIDERS: Visit Provider Physician Assistant
DX: M25.559 Pain in unspecified hip (principal)
CPT/HCPCS: 73502

== ENCOUNTER 2024-12-09 05:37 | Day surgery (SDC) | payer OTHER, SELFPAY ==
[2024-11-09 09:52] VITALS: BP 158/81; PULSE 70; RESP 16; O2SAT 97; BMI 30.3
--- NOTE | 2024-11-09 10:26 | P.CONAN_ITS ---
Documented by User: Michelle Stanley NP 12/08/24 10:11 HPI - Anesthesia Eval Consult details Narrative: 54yo M for Left?Hip Total Replacement, 12/09/24 Medically optimized per PCP (EKG and labs reviewed) No recent illness No CP/SOB with activities limited only by hip pain Quit smoking 1 week ago (25 years) PMFSH Active Problems Active Problems: All Active Problems Pre-op evaluation (Acute) Avascular necrosis of bone of left hip (Acute) Osteoarthritis of left hip (Acute) Hypertriglyceridemia (Acute) Elevated liver enzymes (Acute) Hip pain, left (Acute) HTN (hypertension) (Acute) Emphysema lung (Acute) Obese (Acute) Elevated blood pressure reading (Acute) Colon cancer screening (Acute) Overweight (BMI 25.0-29.9) (Acute) Smoker (Acute) Essential hypertension (Acute) Nicotine dependence, cigarettes, uncomplicated (Acute) Past Medical History Medical History Lipoma Quit smoking Osteoarthritis Varicose vein of leg Wears glasses Wears dentures Use of cane as ambulatory aid HLD (hyperlipidemia) Overweight (BMI 25.0-29.9) Smoker Essential hypertension Nicotine dependence, cigarettes, uncomplicated Family History Family History Mother Liver cancer Father Heart attack, Onset Age: 69 Diabetes Brother Diabetes Family history of problems with anesthesia: No Surgical History Surgical History History of total left hip replacement Hx of colonoscopy (~07/2024) History of Problems with Anesthesia: No Social History Social History Household Members: Spouse Housing: House Are you a primary home health care coordinator to a significant other at home: No Do you presently have visiting nurse or other home services: No Alcohol intake: current Alcohol intake frequency: a few times a week Alcohol type: beer Patient Tobacco Use Status: Former Tobacco user Tobacco use type: Cigarette Years Smoked: (onset 19yo, 1ppd x 34yrs, 30+PYH) Smoked in Last 30 Days: Yes e-Cigarette/Vaping Use: Never Used Patient Interested in Nicotine Replacement: Yes Patient Given Instructions on How to Stop Smoking: No Second Hand Smoke Exposure: No Use of substances other than those prescribed or required for medical reasons: No Have you been hit, kicked, punched, or otherwise hurt by someone within the past year? 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 Cognitive needs: No Hearing needs: No Vision needs: Yes Meds Allergies Allergy/AdvReac Type Severity Reaction Status Date / Time No Known Allergies Allergy Verified 12/03/24 09:00 Home Medications ?Medication ?Instructions ?Recorded ?Confirmed ?Last Taken ?Type multivitamin 1 tab PO DAILY 11/09/24 11/09/24 12/08/24 History Exam Height,Weight and Vital Signs: Height 5 ft 9 in Weight 93 kg Last Vital Signs Pulse 70 11/09/24 09:52 Resp 16 11/09/24 09:52 BP 158/81 H 11/09/24 09:52 Pulse Ox 97 11/09/24 09:52 O2 Del Method Room Air 11/09/24 09:52 Pertinent Lab Results Pertinent Lab Results: Lab Results 11/09/24 11/28/24 Range/Units 10:29 08:58 Nasal Screen MRSA (PCR) NEGATIVE (Negative) Nasal S. aureus Screen POSITIVE A (Negative) Nasal MRSA/S.aureus Interp SEE NOTE Blood Type A Positive Antibody Screen NEGATIVE Laboratory Tests 11/28/24 09:04 WBC 6.3 Hgb 13.0 L Hct 37.3 L Plt Count 105 L D Sodium 139 Potassium 4.3 Chloride 105 Carbon Dioxide 24 BUN 15 Creatinine 0.72 Narrative Narrative: EKG 10/2024 Vent. Rate : 65 BPM Atrial Rate : 65 BPM P-R Int : 154 ms QRS Dur : 78 ms QT Int : 384 ms P-R-T Axes : 71 50 53 degrees QTcB Int : 399 ms Normal sinus rhythm Septal infarct , age undetermined Abnormal ECG No previous ECGs available XR chest 2V 10/2024 IMPRESSION: No acute cardiopulmonary abnormality. Airway Mallampati Class: II TM Dist: >3cm Neck ROM: Full Denture: Upper and Lower Heart: RRR Lungs: Coarse uppers, clears with cough Assessment and Plan Assessment Anesthesia Assessment: Anesthesia Plan Discussed, Smoking Cess. Discussed and PAT Visit Final Anesthetic Review Family History of Problems with Anesthesia: No History of Problems with Anesthesia: No Documented by User: Heather Seth MD 12/09/24 08:36 PMF Past Medical History Medical History Lip[place] Quit smoking Osteoarthritis Varicose vein of leg Wears glasses Wears dentures Use of cane as ambulatory aid HLD (hyperlipidemia) Overweight (BMI 25.0-29.9) Smoker Essential hypertension Nicotine dependence, cigarettes, uncomplicated Family History Family History Mother Liver cancer Father Heart attack, Onset Age: 69 Diabetes Brother Diabetes Surgical History Surgical History History of total left hip replacement Hx of colonoscopy (~07/2024) Social History Social History Household Members: Spouse Housing: House Are you a primary home health care coordinator to a significant other at home: No Do you presently have visiting nurse or other home services: No Alcohol intake: current Alcohol intake frequency: a few times a week Alcohol type: beer Patient Tobacco Use Status: Former Tobacco user Tobacco use type: Cigarette Years Smoked: (onset 19yo, 1ppd x 34yrs, 30+PYH) Smoked in Last 30 Days: Yes e-Cigarette/Vaping Use: Never Used Patient Interested in Nicotine Replacement: Yes Patient Given Instructions on How to Stop Smoking: No Second Hand Smoke Exposure: No Use of substances other than those prescribed or required for medical reasons: No Have you been hit, kicked, punched, or otherwise hurt by someone within the past year? 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 Cognitive needs: No Hearing needs: No Vision needs: Yes Meds Allergies Allergy/AdvReac Type Severity Reaction Status Date / Time No Known Allergies Allergy Verified 12/03/24 09:00 Home Medications ?Medication ?Instructions ?Recorded ?Confirmed ?Last Taken ?Type multivitamin 1 tab PO DAILY 11/09/24 11/09/24 12/08/24 History Assessment and Plan Final Anesthetic Review NPO: Yes ASA Class: III Final Preanesthetic Review: No Changes in Pt Med Stat, Meds/Allgs Chart Reviewed, Consent Obtained/Reviewed and Anes Risks/Benef Reviewed Patient Risk: Intermediate Procedure Risk: Intermediate Anesthetic Plan Anesthetic Plan: GA Disposition: Standard PACU
--- NOTE | 2024-11-09 10:51 | ECG_ITS ---
Test Reason : PRE OP Blood Pressure : */* mmHG Vent. Rate : 65 BPM Atrial Rate : 65 BPM P-R Int : 154 ms QRS Dur : 78 ms QT Int : 384 ms P-R-T Axes : 71 50 53 degrees QTcB Int : 399 ms Normal sinus rhythm Septal infarct , age undetermined Abnormal ECG No previous ECGs available Referred By: Gautam Cheema Electronically Signed By: EARNESTINE KUMAR
[2024-11-09 13:07] LABS: MRSA Nasal PCR NEGATIVE (Negative); SA Nasal PCR POSITIVE (Negative)
[2024-12-09] VITALS (17 sets, daily range): BP systolic 124–153; BP diastolic 60–86; PULSE 61–81; RESP 10–22; TEMP 36.5–37.1; O2SAT 95–100
--- NOTE | ~2024-12-09 | XR_ITS ---
EXAMINATION: XR PELVIS 1-2 VIEWS HISTORY: s/p LTHA COMPARISON: Comparison is made with the prior examination dated 12/03/2024. FINDINGS: A single AP view of the pelvis is submitted. The patient is status post left total hip arthroplasty. The orthopedic elements are in anatomic alignment on this single view. The right hip joint space is maintained. XR/XR pelvis 1-2V IMPRESSION: Status post post left total hip arthroplasty. Electronically signed by: Rick Stokes MD 12/09/2024 11:03 AM SEAN CASTRO
--- NOTE | ~2024-12-09 | XR_ITS ---
EXAMINATION: XR CHEST 2 VIEWS HISTORY: J43.9 - Emphysema, unspecified COMPARISON: Correlation is made with a chest CT dated 02/28/2024. FINDINGS: PA and lateral views of the chest are submitted. The lungs are expanded and clear. There is no pleural effusion, pneumothorax, or pulmonary vascular congestion. The heart is normal in size. There is degenerative disc disease of the spine. XR/XR chest 2V IMPRESSION: No acute cardiopulmonary abnormality. Electronically signed by: Rick Stokes MD 11/09/2024 11:45 AM EST
[2024-12-09] MEDS: oxyCODONE HCl ER 10 MG TAB.ER.12H PO ×2 (06:33→20:39)
[2024-12-09 07:02] LABS: Hematocrit 36.6 % (42.0-52.0); Hemoglobin 12.6 g/dl (14.0-18.0)
[2024-12-09] MEDS: Lactated Ringers 1,000 ML 100 ML IVCONT ×3 (07:11→22:26)
--- NOTE | 2024-12-09 07:25 | MHC.SHP ---
Pre-Procedural Eval Section A - 24 Hr Update-Section A only Date of Service: 12/09/24 The patient is an INPATIENT: No Changes since office visit: No Cold of Flu in the past 2 weeks, No New Medical Problems, No Changes in Medication and No Patient answered all questions The patient has been examined within 24 hours of the surgical procedure. The History & Physical has been completed within 30 days and I have reviewed it.: Yes Section B - Complete if H&P > 30 days Chief Complaint: Idiopathic aseptic necrosis of left femur Allergies: Allergies Allergy/AdvReac Type Severity Reaction Status Date / Time No Known Allergies Allergy Verified 12/03/24 09:00 Plan I have reviewed the history and physical and performed a pertinent physical examination on my patient. No changes have occurred unless specified. Time Spent With Patient Time: Total time managing care of this patient today ____ minutes.
[2024-12-09] MEDS: ceFAZolin Sodium/Dextrose,Iso 2 GM/50 ML PIGGYBACK IV ×2 (07:44→14:17)
[2024-12-09] MEDS: Acetaminophen 1,000 MG/100 ML PIGGYBACK 400 MG IV (09:05)
--- NOTE | 2024-12-09 09:25 | P.BOP_ITS ---
Brief Operative Note Date of Service: 12/09/24 Pre-op diagnosis: Left hip AVN Post-op diagnosis: same Procedure: Left TAMI Implants: [place] Accolade2 54 multi hole with 3 acetabular screws [place] Trident2 #[id number] with +5/36 ceramic Surgeon: Rakesh Roberson MD Anesthesia: GETA and local Was an Unit Secretary used for this Procedure?: Yes Unit Secretary: Monique Vora Estimated blood loss (mL): 200 IV fluids (mL): 1,000 Pathology: other Condition: stable Disposition: PACU
[2024-12-09] MEDS: HYDROmorphone HCl 0.5 MG/0.5 ML SYRINGE 0.25 MG IVPUSH ×5 (09:42→17:04)
--- NOTE | 2024-12-09 11:18 | W.PM.OPN ---
Operative Note Operative Note Date of Service: 12/09/24 Narrative: Date of Service: 12/09/24 Pre-op diagnosis: Left hip AVN Post-op diagnosis: same Procedure: Left TAMI Implants: [place] Accolade2 54 multi hole with 3 acetabular screws [place] Trident2 #[id number] with +5/36 ceramic Surgeon: Rakesh Roberson MD Anesthesia: GETA and local Was an Hydraulic Press Tender used for this Procedure?: Yes Hydraulic Press Tender: Monique Vora Estimated blood loss (mL): 200 IV fluids (mL): 1,000 Pathology: other Condition: stable Disposition: PACU Procedure in detail: Patient was brought into the operating room and placed in the right lateral decubitus position. All bony prominences were well padded and the limb was prepped and draped in standard sterile fashion. A time-out was called to identify proper site procedure proper surgeon IV antibiotics and 1 g of tranexamic acid were administered. I began by making a curvilinear incision over the posterolateral aspect of the greater trochanter. Dissection was taken down to the tensor fascia which was incised in line with the incision and a Charnley retractor was placed. Cautery was used to maintain hemostasis. The hip was internally rotated and the external rotators were identified. The vessels were cauterized and a full-thickness capsular/external rotator layer was developed starting just proximal to the piriformis. This layer was tagged and a dull Hohmann retractor was placed underneath the neck in the hip was dislocated. A neck cut was made 1 cm proximal to the lesser trochanter and the head and neck were removed and measured 52mm on the back table. The head was deformed and necrotic, I then removed the labrum and cauterized the fovea. I started with a 44 reamer and medialized to the inner table. I sequentially reamed up to a size 54 and impacted a 54mm cup at 45 degrees of inclination and 25 degrees of version. The cup was capacious and so I palced 3 superior acetabular screws in standard AO technique. I then placed a 20 deg posterior lipped liner and turned my attention to the femur. I identified the piriformis insertion and used this as a starting point for my michaelle cutter. The medius tendon was protected with a Hibs retractor. A Charnley awl was inserted in the canal and a curved curette used to remove the lateral bone. I irrigated copiously. I then sequentially broached in the patient's natural version to a size 6 and placed my trial implants. I used a #6/127/+5 based on my pre-operative template. I removed all instrumentation and copiously irrigated. I placed my final femoral implant and again took the hip through range of motion and was satisfied with the stability and length. The final +5 implant was impacted in place and the hip reduced. I then irrigated copiously and placed 1 g of local tranexamic acid. I performed a capsular closure with 2.0 fiberwire, Silvestre's fascia with 0 Vicryl, subcuticular with 2-0 Vicryl and the skin with chance. Patient was placed into a sterile dressing. Patient was extubated brought to the recovery room in stable condition. There were no known complications.
--- NOTE | 2024-12-09 13:04 | PHA.MEDREC ---
Addendum entered by Calista Elizondo RPh 12/09/24 13:56: Med rec was reviewed by [facility]. Original Note: Pharmacy Consult ? Medication Reconciliation Pharmacy reviewed med rec done by nursing. Spoke with patient and he confirmed the medications that were confirmed by nursing were correct. He confirmed he took his medications yesterday and also confirmed he also took off the nicotine patch yesterday and did not replace it.
[2024-12-09] MEDS: oxyCODONE HCl Immed Release 5 MG TABLET PO (14:26)
--- NOTE | 2024-12-09 17:11 | HO.PM.IMCN ---
History of Present Illness Data of Consult Service Date: 12/09/24 Primary Care Provider: Gautam Cheema PA-C HPI 54-year-old gentleman with past medical history significant for essential hypertension, hyperlipidemia, tobacco dependency on nicotine patch and emphysema admitted to orthopedic service for elective left total hip arthroplasty Postprocedure patient is doing well denies hip pain, denies lightheadedness, no dizziness, no chest pain, no palpitations feels anxious since not placed on nicotine patch, no headache, offers no other acute symptoms. Review of Systems Review of Systems: All other system reviewed and are negative [facility] Medical History [place] Quit smoking Osteoarthritis Varicose vein of leg Wears glasses Wears dentures Use of cane as ambulatory aid HLD (hyperlipidemia) Overweight (BMI 25.0-29.9) Smoker Essential hypertension Nicotine dependence, cigarettes, uncomplicated Family History Mother Liver cancer Father Heart attack, Onset Age: 69 Diabetes Brother Diabetes Surgical History History of total left hip replacement Hx of colonoscopy (~07/2024) Social History Household Members: Spouse Housing: House Are you a primary ocular care technician to a significant other at home: No Do you presently have visiting nurse or other home services: No Alcohol intake: current Alcohol intake frequency: a few times a week Alcohol type: beer Patient Tobacco Use Status: Former Tobacco user Tobacco use type: Cigarette Years Smoked: (onset 19yo, 1ppd x 34yrs, 30+PYH) Smoked in Last 30 Days: Yes e-Cigarette/Vaping Use: Never Used Patient Interested in Nicotine Replacement: Yes Patient Given Instructions on How to Stop Smoking: No Second Hand Smoke Exposure: No Use of substances other than those prescribed or required for medical reasons: No Have you been hit, kicked, punched, or otherwise hurt by someone within the past year? If so, by whom?: No Do you feel safe in your current relationship?: Yes Is there a partner from a previous relationship who is making you feel unsafe now?: No Are you made to feel afraid or neglected: No Are you DNR?: No Advance Directives: No Advance Directives Information Provided: Yes Advance Directives on File: No Do you have a plan to hurt others: No Plan Recently lost weight without trying: Yes How much weight loss: 2-13 pounds Eating poorly because of decreased appetite: Yes Nutrition screen score: 4 Nutrition Risks: No Nutritional Risk Poor oral hygiene: No service: No Current occupational status: employed 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 Cognitive needs: No Hearing needs: No Vision needs: Yes Meds Allergies Allergy/AdvReac Type Severity Reaction Status Date / Time No Known Allergies Allergy Verified 12/03/24 09:00 Active Medications: Current Medications Acetaminophen (Acetaminophen 325 Mg Tablet) 650 mg PO Q6H PRN PRN Reason: Pain, Mild 1-3,fever,headache Aspirin (Aspirin 325 Mg Tablet) 325 mg PO BID RADHA Celecoxib (Celecoxib 200 Mg Capsule) 200 mg PO BID RADHA Hydromorphone HCl (Hydromorphone Hcl 0.5 Mg/0.5 Ml Syringe) 0.25 mg IVPUSH Q4H PRN; Protocol PRN Reason: Pain, Severe (Pain Scale 7-10) Last Admin: 12/09/24 17:04 Dose: 0.25 mg Lactated Ringer's (Lr) 1,000 mls @ 100 mls/hr IVCONT .Q10H RADHA Last Admin: 12/09/24 12:16 Dose: 100 mls/hr Lisinopril (Lisinopril 20 Mg Tablet) 20 mg PO DAILY [facility]; Protocol Magnesium Hydroxide (Milk Of Magnesia 30 Ml Oral.Susp) 30 ml PO DAILY PRN PRN Reason: Constipation Melatonin (Melatonin 3 Mg Tablet) 6 mg PO BEDTIME PRN PRN Reason: Insomnia Multivitamins/Vitamin C (Multivitamin Tablet) 1 tab PO DAILY [facility] Nicotine (Nicotine 14 Mg Patch.Td24) 14 mg TRANSDERMA DAILY [facility] Ondansetron HCl (Ondansetron Hcl 4 Mg/2 Ml Vial) 4 mg IVPUSH Q8H PRN PRN Reason: Nausea and Vomiting Oxycodone HCl (Oxycodone Hcl Immed Release 5 Mg Tablet) 5 mg PO Q4H PRN PRN Reason: Pain, Moderate(Pain Scale 4-6) Last Admin: 12/09/24 14:26 Dose: 5 mg Oxycodone HCl (Oxycodone Hcl Er 10 Mg Tab.Er.12h) 10 mg PO BID RADHA Senna (Sennosides 8.6 Mg Tablet) 17.2 mg PO BEDTIME RADHA Sodium Chloride (0.9 % Sodium Chloride Flush 3 Ml Syringe) 3 ml IVFLUSH QSHIFT RADHA Last Admin: 12/09/24 16:55 Dose: Not Given Home Medications ?Medication ?Instructions ?Recorded ?Confirmed ?Last Taken ?Type multivitamin 1 tab PO DAILY 11/09/24 11/09/24 12/08/24 History Physical Exam Vital Signs and Narrative: Vital Signs: Last Vital Signs Temp 97.8 F 12/09/24 15:08 Pulse 79 12/09/24 15:08 Resp 18 12/09/24 15:08 BP 124/61 12/09/24 15:08 Pulse Ox 96 12/09/24 15:08 O2 Del Method Room Air 12/09/24 15:08 O2 Flow Rate 2 12/09/24 10:10 BMI result Body Mass Index 30.3 Const: Other: General resting comfortably in no acute distress. Neck no JVD. CVS regular rate rhythm, Respiratory lungs clear to auscultation, no respiratory distress, no wheeze, no rhonchi. Gastrointestinal abdomen soft, non tender, bowel sounds audible, no guarding , no rigidity. Extremities no edema. Left hip dressing in place. Neuro non focal Skin no rash Psych appropriate affect Results Labs 12/09/24 06:40 Imaging Radiologist's Impressions: Impressions Pelvis X-Ray 12/09/24 09:33 IMPRESSION: Status post post left total hip arthroplasty. Electronically signed by: Rick Stokes MD 12/09/2024 11:03 AM [facility] Assessment and Plan (1) Avascular necrosis of bone of left hip: Status: Acute (2) Osteoarthritis of left hip: Qualifiers: Osteoarthritis type: primary Qualified Code(s): M16.12 - Unilateral primary osteoarthritis, left hip Status: Acute (3) HTN (hypertension): Qualifiers: Hypertension type: primary hypertension Qualified Code(s): I10 - Essential (primary) hypertension Status: Acute Plan 54-year-old gentleman with past medical history significant for hypertension, nicotine dependence, emphysema, history of avascular necrosis of left hip underwent elective left hip surgery L TAMI POD #0 Good pain control Continue current pain medication OxyContin/Celebrex/stool softeners Encourage incentive spirometry Follow labs DC IV fluids tolerating by mouth Hypertension continue lisinopril, follow BP Tobacco use disorder continue nicotine patch History of elevated liver enzymes recommend outpatient follow-up with PCP Hypertriglyceridemia recommend follow-up with PCP. DVT prophylaxis aspirin 325 b.i.d. Full code Will sign off please reconsult for acute medical issues.
[2024-12-09] MEDS: Nicotine 14 MG PATCH.TD24 TRANSDERMA (17:35)
[2024-12-09] MEDS: Celecoxib 200 MG CAPSULE PO (20:38)
[2024-12-09] MEDS: Sennosides 8.6 MG TABLET 17.2 MG PO (20:38)
[2024-12-09] MEDS: Aspirin 325 MG TABLET PO (20:39)
[2024-12-10] VITALS: BP 134/71; PULSE 62; RESP 16; TEMP 36.6; O2SAT 98
[2024-12-10 04:00] VITALS: BP 156/70; PULSE 67; RESP 18; TEMP 36.3; O2SAT 98
[2024-12-10] MEDS: oxyCODONE HCl Immed Release 5 MG TABLET PO (04:26)
[2024-12-10 05:51] LABS: MANUAL DIFF FLAG NO
[2024-12-10 06:10] LABS: Basophils Percent Auto 0.1 % (0-2); Hematocrit 27.9 % (42.0-52.0); Hemoglobin 9.8 g/dl (14.0-18.0); Imm Gran Abs Auto 0.02 X10*3/uL (0.00-0.03); Imm Gran Pct Auto 0.3 % (0.0-0.4); Lymphocytes Absolute Auto 1.9 X10*3/uL (1.2-4.9); Lymphocytes Percent Auto 25.7 % (20-40); Mean Corpuscular HGB Conc 35.1 g/dl (31.0-36.0); Mean Corpuscular Hemoglobin 34.9 pg (27.0-33.0); Mean Corpuscular Volume 99.3 fL (80.0-98.0); Mean Platelet Volume 9.6 fL (9.4-12.4); Monocytes Absolute Auto 0.8 X10*3/uL (0.1-1.2); Monocytes Percent Auto 10.8 % (2-11); Neutrophils Absolute Auto 4.6 x10*3/uL (2.0-8.3); Neutrophils Percent Auto 63.1 % (45-73); Platelet Count 104 X10*3/uL (160-400); Red Blood Count 2.81 X10*6/uL (4.60-5.80); Red Cell Distribution Width 13.5 % (11.0-16.0); White Blood Count 7.2 X10*3/uL (4.8-10.8)
[2024-12-10 06:12] VITALS: BMI 30.2
[2024-12-10 06:21] LABS: Anion Gap 11 (12-20); Blood Urea Nitrogen 10 mg/dL (9-16); Calcium 8.2 mg/dL (8.4-10.2); Carbon Dioxide 27 mmol/L (22-29); Chloride 105 mmol/L (96-108); Estimated Glomerular Filt Rate > 60; Glucose Fasting 119 mg/dL (60-99); Sodium 139 mmol/L (135-145)
[2024-12-10 07:28] VITALS: BP 156/70; PULSE 67; O2SAT 98
[2024-12-10 07:57] VITALS: BP 128/76; PULSE 63; RESP 18; TEMP 36.8; O2SAT 99
--- NOTE | 2024-12-10 09:10 | PM.DS ---
DS: Providers Provider Date of Service: 12/10/24 Date of discharge: 12/10/24 Primary care physician: Gautam Cheema PA-C Consults: 12/09/24 11:08 Consult to Hospitalist Routine Comment: Consulting Provider: [facility] Reason For Exam: Hypertensive during surgery DS: Diagnosis Discharge Diagnosis (1) Avascular necrosis of bone of left hip: Status: Acute (2) Osteoarthritis of left hip: Status: Acute (3) HTN (hypertension): Status: Acute DS: Summary Hospital Course Hospital Course: The patient underwent a successful left total hip arthroplasty, they were transferred to PACU and then to the floor to recover. During their stay, their vitals were stable, afebrile at 98.3. Labs were unremarkable, H/H 9.8/27.9. POD 1 they were started on Aspirin 325mg po bid for DVT ppx, they also received Physical Therapy services twice a day. Prior to discharge, their dressing was clean dry and intact, new Aquacel dressing applied and the plan was to be discharged home with VNA services. Time Attestation Discharge Coordination Time (in mins): 30 Quality: Safe Use of Opioids Does Pt have an Active Cancer Diagnosis on the Problem List?: No Quality: Stroke Does the patient have a stroke diagnosis?: No Physical Exam Vital Signs: Vital Signs: Last Vital Signs Temp 98.3 F 12/10/24 07:57 Pulse 63 12/10/24 07:57 Resp 18 12/10/24 07:57 BP 128/76 12/10/24 07:57 Pulse Ox 99 12/10/24 07:57 O2 Del Method Room Air 12/10/24 07:57 O2 Flow Rate 2 12/09/24 10:10 BMI result Body Mass Index 30.2 Const: General: cooperative, healthy appearing and no acute distress Resp: Effort & Inspection: normal respiratory effort and able to speak in complete sentences Cardio: Rate: regular rate Peripheral pulses: Peripheral pulses 2+ throughout GI: Palpation (GI): Soft to palpation Skin: Lesions: no lesions Rashes: no rashes Extrem: Other: left hip dressing is c/d/i. Able to dorsi/plantar flex. Calf is supple and nontender. Sensation intact. Pedal pulse intact. DS: Data Data Completed and Pending Pending studies at discharge: Pending at discharge 12/09/24 09:06 Surgical [PTH] Routine Labs on day of discharge: Laboratory Results - last 24 hr 12/10/24 05:21 WBC 7.2 RBC 2.81 L D Hgb 9.8 L D Hct 27.9 L D MCV 99.3 H MCH 34.9 H MCHC 35.1 RDW 13.5 Plt Count 104 L MPV 9.6 Immature Gran % (Auto) 0.3 Neut % (Auto) 63.1 Lymph % (Auto) 25.7 Pierce % (Auto) 10.8 Eos % (Auto) 0.0 Baso % (Auto) 0.1 Lymph # (Auto) 1.9 Pierce # (Auto) 0.8 Eos # (Auto) 0.0 Baso # (Auto) 0.0 Abs Immat Gran (auto) 0.02 Absolute Neuts (auto) 4.6 Absolute Nucleated RBC 0.000 Nucleated RBC % (auto) 0.0 Sodium 139 Potassium 4.0 Chloride 105 Carbon Dioxide 27 Anion Gap 11 L BUN 10 Creatinine 0.69 Estim Creat Clear Calc 136.0 Estimated GFR > 60 Fasting Glucose 119 H Calcium 8.2 L D Discharge Plan Discharge Patient Disposition: Home Health Service Referrals: Gautam Cheema PA-C [Primary Care Provider] - 1 Week Discharge Medications: New celecoxib 200 mg Capsule 200 mg PO BID 30 Days Qty: 60 0RF sennosides [Senna Lax] 8.6 mg Tablet 17.2 mg PO BEDTIME 30 Days Qty: 60 0RF acetaminophen 325 mg Tablet 650 mg PO Q6H PRN (Reason: Pain, Mild 1-3,Fever,Headache) 30 Days Qty: 240 0RF aspirin 325 mg Tablet 325 mg PO BID 30 Days Qty: 60 0RF oxycodone 5 mg Tablet 5 mg PO Q4H PRN (Reason: Pain, Moderate(Pain Scale 4-6)) 7 Days Qty: 42 0RF Rx Instructions: Partial Fill upon patient request. Continued (DME) walker Misc See Rx Instructions .ROUTE .MEDSUPPLY Qty: 1 0RF Rx Instructions: Folding front wheeled walker (DME) raised toilet seat See Rx Instructions .Route .MEDSUPPLY Qty: 1 0RF Rx Instructions: As directed multivitamin Tablet 1 tab PO DAILY nicotine 14 mg/24 hr patch 24 hour 1 patch transdermal DAILY 14 Days Qty: 14 3RF lisinopril 20 mg tablet 20 mg PO DAILY 90 Days Qty: 90 1RF Discharge Orders: Discharge Order (Routine); Ordered 12/10/24 Ordered By: Monique Vora Diet: Advance to usual diet Activity on Discharge: Use cane or walker Activity Restrictions/Additional Instructions: Physical Therapy for total hip arthroplasty: posterior precautions, gait training, ROM, strength Limit stair climbing No showering, no tub bath-keep dressing clean, dry and intact No driving x6 weeks Continue ASA tabs once a day x 6 weeks Follow up with [facility] in 2 weeks Print Language: Faroese
--- NOTE | 2024-12-10 09:20 | W.MHC.F2F ---
Service Date Service Date: 12/10/24 Encounter Date of encounter: 12/10/24 Reasons for Services Signs and symptoms assessed: s/p LTHA Pt. is considered homebound due to recent surgery. Unable to drive, poor balance, poor gait mechanics. Reason for physical therapy: home safety and mobility, therapeutic exercises, restore joint function, gait/transfer training and ADL training Reason for occupational therapy: home safety and mobility, therapeutic exercises, restore joint function, gait/transfer training and ADL training Homebound: Leaving the home is medically contraindicated at this time without the asist of a device and/or another person due th the listed conditions above and below. Reason homebound: unsteady gait / fall risk, leg weakness, pain with ambulation, poor balance / fall risk and unable to drive Certification: Based on the above findings, I certify that this patient is confined to the home and needs intermittent longterm care, physical therapy and/or speech therapy, or continues to need occupational therapy. The patient is under my care, and I have initiated the establishment of the plan of care. The patient will be followed by a physician who will periodically review the plan of care. Time Spent With Patient Time: Total time managing care of this patient today ____ minutes.
[2024-12-10] MEDS: oxyCODONE HCl ER 10 MG TAB.ER.12H PO (09:21)
[2024-12-10] MEDS: lisinopriL 20 MG TABLET PO (09:21)
[2024-12-10] MEDS: Celecoxib 200 MG CAPSULE PO (09:22)
[2024-12-10] MEDS: Nicotine 14 MG PATCH.TD24 TRANSDERMA (09:22)
[2024-12-10] MEDS: Multivitamin TABLET 1 TAB PO (09:22)
[2024-12-10] MEDS: Aspirin 325 MG TABLET PO (09:22)
[2024-12-10] MEDS: 0.9 % Sodium Chloride Flush 3 ML SYRINGE IVFLUSH (09:23)
--- NOTE | 2024-12-10 09:33 | MHC.CM.PN ---
CM MET WITH PT AT BEDSIDE. PT LIVES WITH S/O, [facility] AT [place]. NO SERVICES OR DME. + HCP PCP DAVID CARBAJAL DP: PT HAS BEEN MEDICALLY CLEARED FOR DC HOME WITH NEW COMFORT + VNA SERVICES FOR P.T. COMFORT + NOTIFIED OF TODAY'S DC. PT HAS OWN RIDE HOME.
== END 2024-12-10 11:09 | disposition home health service (06) ==
LOC: HO.SSS 05:38 → HO.S3 10:37
PROVIDERS: Physician Assistant; PCP Physician Assistant; Visit Provider Orthopaedic Surgery
PROC: (CPT 27130; principal; 2024-12-09 07:30)
DX: M87.052 Idiopathic aseptic necrosis of left femur (principal); M16.12 Unilateral primary osteoarthritis, left hip; J43.9 Emphysema, unspecified; I10 Essential (primary) hypertension; E78.5 Hyperlipidemia, unspecified; E66.3 Overweight; Z68.28 Body mass index [BMI] 28.0-28.9, adult; Z79.899 Other long term (current) drug therapy; Z99.89 Dependence on other enabling machines and devices; Z87.891 Personal history of nicotine dependence
CPT/HCPCS: 27130; 36415; 71046; 72170; 80048; 85014; 85018; 85025; 86850; 86900; 86901; 87640; 87641; 88304; 88311; 93005; 97110; 97116; 97162; 97166; C1713; C1776; J0131; J0360; J0690; J1100; J1171; J1920; J2003; J2250; J2405; J2704; J2795; J3010; J7120

== ENCOUNTER → 2024-12-09 05:37 | Outpatient (BNV) | payer OTHER, SELFPAY | PROVIDERS: PCP Physician Assistant; Visit Provider Hospitalist | DX: M87.052 Idiopathic aseptic necrosis of left femur (principal); M16.12 Unilateral primary osteoarthritis, left hip; I10 Essential (primary) hypertension | CPT/HCPCS: 99222 ==

== ENCOUNTER → 2024-12-09 05:37 | Outpatient (BNV) | payer OTHER, SELFPAY | PROVIDERS: PCP Physician Assistant; Visit Provider Orthopaedic Surgery | DX: M87.052 Idiopathic aseptic necrosis of left femur (principal); M16.12 Unilateral primary osteoarthritis, left hip; I10 Essential (primary) hypertension; Z47.1 Aftercare following joint replacement surgery; Z96.642 Presence of left artificial hip joint | CPT/HCPCS: 27130; 99024; G0180 ==

== ENCOUNTER → 2024-12-09 09:33 | Outpatient (BNV) | payer OTHER, SELFPAY | PROVIDERS: PCP Physician Assistant; Visit Provider Radiology Diagnostic Radiology | DX: Z96.642 Presence of left artificial hip joint (principal) | CPT/HCPCS: 72170 ==

== ENCOUNTER 2024-12-24 12:08 | Outpatient (AMB) | payer OTHER, SELFPAY ==
--- NOTE | 2024-12-24 12:32 | MHC.OFFVIS ---
Vital Signs 12/24/24 12:36 Height 5 ft 9 in Weight 204 lb BMI 30.1 Handedness Right Intake Visit Reasons: 2WK PO: L TAMI w/NE 12/09/24 Intake Note: Dustin is a 54 year old male who presents today with his partner and a walker for a post operative appointment s/p left total hip arthroplasty 12/09/24 NE. Patient states is doing very well and he has been working with PT. Allergies No Known Allergies Allergy (Verified 12/24/24 12:36) HPI HPI 2WK PO: L TAMI w/NE 12/09/24: Details: Mr. Lunsford Is a 54-year-old male who presents to the office today status post left total hip arthroplasty performed by Dr. Roberson on 12/09/2024. He is using a walker to assist with ambulation while the office today. Overall he is doing very well and having minimal pain. He has having physical therapy through the VNA at home. He is ready to be discharged to outpatient physical therapy within the next few visits. [facility] Medical History Lipoma Quit smoking Osteoarthritis Varicose vein of leg Wears glasses Wears dentures Use of cane as ambulatory aid HLD (hyperlipidemia) Overweight (BMI 25.0-29.9) Smoker Essential hypertension Nicotine dependence, cigarettes, uncomplicated Surgical History History of total left hip replacement Hx of colonoscopy (~07/2024) Family History Mother Liver cancer Father Heart attack, Onset Age: 69 Diabetes Brother Diabetes Social History Household Members: Spouse Housing: House Are you a primary adult live in caregiver to a significant other at home: No Do you presently have visiting nurse or other home services: No 75 years or older and lives alone: No Alcohol intake: current Alcohol intake frequency: a few times a week Alcohol type: beer Patient Tobacco Use Status: Former Tobacco user Tobacco use type: Cigarette Years Smoked: (onset 19yo, 1ppd x 34yrs, 30+PYH) e-Cigarette/Vaping Use: Never Used Second Hand Smoke Exposure: No service: No Current occupational status: employed 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 [place] intact. No surrounding erythema or drainage. No signs of infection. Good internal external rotation. NVI. Assessment & Plan Assessment & Plan (1) Status post total replacement of left hip: Code(s): Z96.642 - Presence of left artificial hip joint Category: Surgical Plan Mr. Lunsford Is a 54-year-old male who presents to the office today status post left total hip arthroplasty performed by Dr. Roberson on 12/09/2024. He is using a walker to assist with ambulation while the office today. Overall he is doing very well and having minimal pain. He has having physical therapy through the VNA at home. He is ready to be discharged to outpatient physical therapy within the next few visits. While in the office today chance were removed and Steri-Strips were applied. He will continue working with the home [facility]NA physical therapy and I will place an order for outpatient physical therapy to begin. He will follow up in [address] Roberson, sooner if needed. Coding Level of Care Code Global (25509) Diagnoses Status post total replacement of left hip Z96.642
[2024-12-24 12:36] VITALS: BMI 30.1
== END 2024-12-24 13:01 | disposition home or self-care (01) ==
LOC: HO.HOS 12:09
PROVIDERS: PCP Physician Assistant; Visit Provider Physician Assistant
DX: Z96.642 Presence of left artificial hip joint (principal)
CPT/HCPCS: 99024

== ENCOUNTER → 2024-12-24 12:08 | Outpatient (BNVA) | payer OTHER, SELFPAY | PROVIDERS: PCP Physician Assistant; Visit Provider Physician Assistant ==

== ENCOUNTER 2025-01-14 11:42 | Outpatient (REF) | payer OTHER, SELFPAY ==
--- NOTE | ~2025-01-14 | XR_ITS ---
EXAMINATION: XR HIP, LEFT CLINICAL INFORMATION: M25.552 - Pain in left hip COMPARISON: 12/09/2024, 12/03/2024, 07/18/2024. TECHNIQUE: AP pelvis and frog-leg lateral view of the left hip. FINDINGS: There is been a total left hip arthroplasty, with femoral and acetabular components intact, well seated, in anatomic alignment. No significant subsidence. No periprosthetic fracture. No periprosthetic lucencies. No evidence of polyethylene wear. There is mild degenerative arthritis of the right hip joint, stable. Mild to moderate degenerative arthritis in both SI joints. Sacrum appears intact. Soft tissues demonstrate vascular calcifications. XR/XR hip LT min 2V IMPRESSION: Left hip total arthroplasty without complication. Electronically signed by: Torsten Carson MD 01/15/2025 09:54 AM EDT
== END 2025-01-14 11:43 | disposition home or self-care (01) ==
LOC: HO.HOSX 11:42
PROVIDERS: Visit Provider Orthopaedic Surgery
DX: M25.552 Pain in left hip (principal); Z96.642 Presence of left artificial hip joint
CPT/HCPCS: 73502

== ENCOUNTER 2025-01-14 11:54 | Outpatient (AMB) | payer OTHER, SELFPAY ==
--- NOTE | 2025-01-14 12:09 | MHC.OFFVIS ---
Intake Visit Reasons: 6WK PO: L TAMI w/NE 12/09/24 Intake Note: Dustin is a 54 year old male who presents today for a post operative appointment about 6 weeks s/p left total hip arthroplasty 12/09/24 NE. Patient reports that he is doing well, he has some weakness but he has not started outpatient physical therapy yet. Due to insurance he would like to go to [facility] in [place] Allergies No Known Allergies Allergy (Verified 01/14/25 12:09) HPI HPI 6WK PO: L TAMI w/NE 12/09/24: Details: Dustin is a 54 year old male who presents today for a post operative appointment about 6 weeks s/p left total hip arthroplasty 12/09/24 NE. Patient reports that he is doing well, he has some weakness but he has not started outpatient physical therapy yet. Due to insurance he would like to go to [facility] in [facility] Medical History Lipoma Quit smoking Osteoarthritis Varicose vein of leg Wears glasses Wears dentures Use of cane as ambulatory aid HLD (hyperlipidemia) Overweight (BMI 25.0-29.9) Smoker Essential hypertension Nicotine dependence, cigarettes, uncomplicated Surgical History History of total left hip replacement Hx of colonoscopy (~07/2024) Family History Mother Liver cancer Father Heart attack, Onset Age: 69 Diabetes Brother Diabetes Social History Household Members: Spouse Housing: House Are you a primary physician locums urgent care to a significant other at home: No Do you presently have visiting nurse or other home services: No 75 years or older and lives alone: No Alcohol intake: current Alcohol intake frequency: a few times a week Alcohol type: beer Patient Tobacco Use Status: Former Tobacco user Tobacco use type: Cigarette Years Smoked: (onset 19yo, 1ppd x 34yrs, 30+PYH) e-Cigarette/Vaping Use: Never Used Second Hand Smoke Exposure: No service: No Current occupational status: employed 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 Left TAMI in expected post operative position with no hardware complications or evidence of loosening Assessment & Plan Assessment & Plan (1) Status post total replacement of left hip: Code(s): Z96.642 - Presence of left artificial hip joint Category: Surgical Plan: Doing well status post left hip replacement. May DC aspirin. Follow up 6 weeks. Continue physical therapy. Orders: Orders XR pelvis 1-2V Today M25.559 - Pain in unspecified hip PT Evaluation and Treatment Today Z96.642 - Presence of left artificial hip joint Coding Level of Care Code Global (31768) Diagnoses Status post total replacement of left hip Z96.642
== END 2025-01-14 12:31 | disposition home or self-care (01) ==
LOC: HO.HOS 11:55
PROVIDERS: PCP Physician Assistant; Visit Provider Orthopaedic Surgery
DX: Z96.642 Presence of left artificial hip joint (principal)
CPT/HCPCS: 99024

== ENCOUNTER → 2025-01-14 12:00 | Outpatient (BNV) | payer OTHER, SELFPAY | PROVIDERS: Visit Provider Radiology Diagnostic Radiology | DX: Z96.642 Presence of left artificial hip joint (principal) | CPT/HCPCS: 73502 ==

== ENCOUNTER 2025-02-25 11:21 | Outpatient (AMB) | payer OTHER, SELFPAY ==
--- NOTE | 2025-02-25 11:23 | MHC.OFFVIS ---
Vital Signs 02/25/25 11:25 Height 5 ft 9 in Weight 204 lb BMI 30.1 Intake Visit Reasons: PO: L TAMI w/NE 12/09/24 Intake Note: Dustin is a 54 year old male who presents today for a post operative follow up of his Left Hip about 3 months s/p Left TAMI 12/09/24. Patient reports that he is doing very well, he continues to work with physical therapy and has no concerns. Allergies No Known Allergies Allergy (Verified 02/25/25 11:25) HPI HPI PO: L TAMI w/NE 12/09/24: Details: Dustin is a 54 year old male who presents today for a post operative follow up of his Left Hip about 3 months s/p Left TAMI 12/09/24. Patient reports that he is doing very well, he continues to work with physical therapy and has no concerns. PFSH Medical History Personal history of nicotine dependence Avascular necrosis of bone of left hip Osteoarthritis of left hip HTN (hypertension) Lipoma Osteoarthritis Varicose vein of leg Wears glasses Wears dentures Use of cane as ambulatory aid HLD (hyperlipidemia) Overweight (BMI 25.0-29.9) Essential hypertension Surgical History (Updated 12/24/24 @ 12:59 by Monique Vora PA-C) History of total left hip replacement Hx of colonoscopy (~07/2024) Family History Mother Liver cancer Father Heart attack, Onset Age: 69 Diabetes Brother Diabetes Social History Household Members: Spouse Housing: House Are you a primary home care provider to a significant other at home: No Do you presently have visiting nurse or other home services: No 75 years or older and lives alone: No Alcohol intake: current Alcohol intake frequency: a few times a week Alcohol type: beer Patient Tobacco Use Status: Former Tobacco user Tobacco use type: Cigarette Years Smoked: (onset 19yo, 1ppd x 34yrs, 30+PYH) e-Cigarette/Vaping Use: Never Used Second Hand Smoke Exposure: No service: No Current occupational status: employed 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 Assessment & Plan Assessment & Plan (1) Status post total replacement of left hip: Code(s): Z96.642 - Presence of left artificial hip joint Category: Surgical Plan: Status post left TAMI. Doing very well. Continue strengthening abductor. May follow up 9 months as were as needed. Discussed dental prophylaxis. Coding Level of Care Code Global (56480) Diagnoses Status post total replacement of left hip Z96.642
[2025-02-25 11:25] VITALS: BMI 30.1
--- OUTSIDE RECORDS SUMMARY | 2025-02-25 12:31 | XMS_ITS | Encounter Summary ---
Author Organization [facility] Address [address] [place] [address] Care Team Providers Care Inside Sales Associate Name Role Phone Gautam Cheema Primary Care Provider [phone] Reason for Visit * Consultation (Elective) - Authorized Specialty Diagnoses / Procedures Referred By Checo he Referred To Contact Physical Therapy Diagnoses Presence of left artificial hip joint Rakesh Roberson MD [address] [place] [address] [address] [place] [address] Phone: tel: fax: Referral ID Status Reason Start Date Expiration Date Visits Requested Visits Authorized [id number] Authorized Consult and Treat 02/08/2025 02/08/2026 25 25 Encounter Details Date Type Department Care Team (Late st Contact Info) Description 02/22/2025 4:00 PM EDT Treatment Outpatient [address] [phone] Sylvia Zapata PTA Presence of left artificial hip joint (Primary Dx) Social History Tobacco Use Types Packs/Day Years Used Date Smoking Tobacco: Never Assessed Sex and Gender Information Value Date Recorded Sex Assigned at Not on file Legal Sex Male 10:40 AM EDT Gender Identity Not on file Sexual Orientation Not on file documented as of this encounter Progress Notes * Sylvia Zapata PTA - 02/22/2025 4:00 PM EDT [facility]- Outpatient PHYSICAL THERAPY DAILY TREATMENT NOTE - OP Date: 02/22/2025 Visit Number: [id number] Patient Name: Dustin Gabriel : 1970 Age: 54 y.o. Gender: male Diagnosis: No diagnosis found. Date of Onset/Surgery: 12/09/2024 Referring Provider: Rakesh Roberson MD Insurance: Payor: [employer] / Plan: [employer] HMO / Product Type: *No Product type* / Patient Identified by: Sylvia Zapata PTA Language: Speaks and understands Nigerien as preferred language with no bead builder required Medications: No current outpatient medications on file prior to visit. No current facility-administered medications on file prior to visit. Allergies: has No Known Allergies. Precautions: THR Fall risk: No SUBJECTIVE: Subjective Report: No pain. Chart Reviewed: Yes Pain: None OBJECTIVE: Vitals: There were no vitals filed for this visit.; TREATMENT INTERVENTION: Therex: Nu step x 5 min. Standing HS stretch x 4 reps w/ 20 sec hold. Standing Neutral HF stretch x 4 reps w/ 20 sec hold. Hip ADD w/ beach ball x 2 sets of 10. Isometric HIP ABD w/ PTB in H/L x 2 sets of 10. Calf raises x 2 sets of 10. Lat stepping w/ GTB x 2 laps . Manual Therapy: STM/MFR to HF, Proximal ITB. Foam rolling to Quad, ASSESSMENT/Response to Treatment Good Pt was able to verbally reported TKR precautions. Verbal cueing needed to increase step length w/ GT. Patient Education: Education provided: Reviewed car/bed transfers. Education Provided To: Patient utilizing Explanation and Demonstration mode(s) of education Response to Education: Applied Knowledge, Verbal Understanding, and Demonstrated Skills PLAN POC Development/Review: No Change in the Plan of Care; Participants: Patient Interventions Time Entry: Modalities: Therapeutic procedures: Therex: 22 minutes. Manual Therapy: 8 minutes. Total Treatment Time: 30 minutes. Documentation completed by Sylvia Zapata PTA documented in this encounter Plan of Treatment Upcoming Encounters Date Type Department Care Team (Late st Contact Info) Description 03/01/2025 4:00 PM EDT Treatment Outpatient [address] [phone] Sylvia Zapata PTA 03/04/2025 4:00 PM EDT Treatment Outpatient [address] [place], [place] [phone] Mil Lucas, PT 03/09/2025 4:00 PM EDT Treatment Outpatient Rehabilitation - [address] [phone] Mil Lucas, PT 03/11/2025 4:00 PM EDT Treatment Outpatient Rehabilitation - [address] [phone] Mil Lucas, PT 03/16/2025 4:00 PM EDT Treatment Outpatient Rehabilitation - [address] [phone] Mil Lucas, PT 03/18/2025 4:00 PM EDT Treatment Outpatient Rehabilitation - [address] [phone] Mil Lucas, PT 03/23/2025 3:00 PM EDT Treatment Outpatient Rehabilitation - [address] [phone] Mil Lucas, PT 03/25/2025 4:00 PM EDT Treatment Outpatient Rehabilitation - [address] [phone] Mil Lucas, PT 03/30/2025 4:00 PM EDT Treatment Outpatient Rehabilitation - [address] [phone] Mil Lucas, PT 04/08/2025 4:00 PM EDT Treatment Outpatient Rehabilitation - [address] [phone] Mil Lucas, PT documented as of this encounter Visit Diagnoses Diagnosis Presence of left artificial hip joint- Primary documented in this encounter Care Teams Inside Sales Associate Relationship Specialty Start Date End Date Gautam Cheema PA [address] [place] [phone] PCP - General Physician Detective 02/08/25 documented as of this encounter
--- OUTSIDE RECORDS SUMMARY | 2025-02-25 12:31 | XMS_ITS | Clinical Summary ---
Author Organization [facility] Address [address] [place] [address] Phone Care Team Providers Care Arts Administrator Name Role Phone Gautam Cheema Primary Care Provider Allergies No known active allergies Active Problems No known active problems Encounters Date Type Department Care Team Description 02/22/2025 4:00 PM EDT Treatment Outpatient Rehabilitation [address] [phone] Sylvia Zapaat PTA Presence of left artificial hip joint (Primary Dx) 02/16/2025 11:15 AM EDT Evaluation Physical Therapy - [address] [phone] Mil Lucas PT Presence of left artificial hip joint 02/16/2025 Plan of Care Documentation Physical Therapy - [address] [phone] 02/11/2025 3:41 PM EDT - 02/11/2025 7:03 PM EDT Emergency [facility] Emergency [address] [place] [phone] Dizziness (Primary Dx) Discharge Disposition: Home or Self Care from Last 3 Months Social History Tobacco Use Types Packs/Day Years Used Date Smoking Tobacco: Never Assessed Sex and Gender Information Value Date Recorded Sex Assigned at Not on file Legal Sex Male 10:40 AM EDT Gender Identity Not on file Sexual Orientation Not on file Obstetrics History Last Filed Vital Signs Vital Sign Reading Time Taken Comments Blood Pressure 106/50 02/11/2025 3:22 PM EDT Pulse 83 02/11/2025 3:22 PM EDT Temperature 36.6 ??C (97.9 ??F) 02/11/2025 3:22 PM ED T Respiratory Rate 16 02/11/2025 3:22 PM EDT Oxygen Saturation 96% 02/11/2025 3:22 PM EDT Inhaled Oxygen Concentration - - Weight 86.2 kg (190 lb) 02/11/2025 3:22 PM EDT Height 172.7 cm (5' 8 ) 02/11/2025 3:22 PM EDT Body Mass Index 28.89 02/11/2025 3:22 PM EDT Plan of Treatment Upcoming Encounters Date Type Department Care Team (Late st Contact Info) Description 03/01/2025 4:00 PM EDT Treatment Outpatient Rehabilitation - [address] [phone] Sylvia Zapata, QUALITATIVE FIELD COORDINATOR 03/04/2025 4:00 PM EDT Treatment Outpatient [facility] - [address] [phone] Mil Lucas, PT 03/09/2025 4:00 PM EDT Treatment Outpatient Rehabilitation - [address] [phone] Mil Lucas, PT 03/11/2025 4:00 PM EDT Treatment Outpatient [address] [phone] Mil Lucas, PT 03/16/2025 4:00 PM EDT Treatment Outpatient [facility] - [address] [phone] Mil Lucas, PT 03/18/2025 4:00 PM EDT Treatment Outpatient [address] [phone] Mil Lucas, PT 03/23/2025 3:00 PM EDT Treatment Outpatient Rehabilitation [address] [phone] Mil Lucas, PT 03/25/2025 4:00 PM EDT Treatment Outpatient [facility] - [address] [phone] Mil Lucas, PT 03/30/2025 4:00 PM EDT Treatment Outpatient [facility] - [address] [phone] Mil Lucas, PT 04/08/2025 4:00 PM EDT Treatment Outpatient [facility] - [address] [phone] Mil Lucas, PT Health Maintenance Due Date Last Done Comments Hepatitis B Vaccines (1 of 3 - 19+ 3-dose series) 1988 Pneumococcal Vaccine: 50+ Ye ars (1 of 1 - PCV) 2019 Zoster Vaccines (1 of 2) 2019 COVID-19 Vaccine ( - 2023-2 5 season) 2024 Cholesterol Screening (Lipid Panel) 02/08/2025 Colorectal Cancer Screening: Colonoscopy 02/08/2025 Depression Screening 02/08/2025 HIV Screening 02/08/2025 Hepatitis C Screening 02/08/2025 Social Influencers of Health Screening 02/08/2025 Influenza Vaccine (Season Ended) 2025 Hypertension/CHF/CAD Annual BMP Blood Test 02/11/2026 02/11/2025 DTaP,Tdap,and Td Vaccines (2 - Td or Tdap) 10/16/2033 10/16/2023 HIB Vaccines Aged Out No longer eligi ble based on patient's age to complete this topic HPV Vaccines Aged Out No longer eligi ble based on patient's age to complete this topic Hepatitis A Vaccines Aged Out No long er eligible based on patient's age to complete this topic IPV Vaccines Aged Out No longer eligi ble based on patient's age to complete this topic MMR Vaccines Aged Out No longer eligi ble based on patient's age to complete this topic Meningococcal ACWY Vaccine Aged Out N o longer eligible based on patient's age to complete this topic Meningococcal B Vaccine Aged Out No l onger eligible based on patient's age to complete this topic Pneumococcal Vaccine: Pediat rics (0 to 5 Years) and At-Risk Patients (6 to 64 Years) Aged Out No longer eligi ble based on patient's age to complete this topic RSV Immunization Patients Un shahid 20 months Aged Out No longer eligible b ased on patient's age to complete this topic Varicella Vaccines Aged Out No longer eligible based on patient's age to complete this topic Procedures Procedure Name Priority Date/Time Associated Diagnosis Comments ECG ANNOTATED 02/12/2025 ECG 12-LEAD STAT 02/11/2025 6:42 PM EDT TROPONIN I HIGH SENSITIVITY STAT 02/11/2025 5:10 PM EDT XR CHEST 2 VIEWS STAT 02/11/2025 4:58 PM EDT CBC WITH AUTO DIFFERENTIAL STAT 02/11/2025 4:08 PM EDT B-TYPE NATRIURETIC PEPTIDE STAT 02/11/2025 4:08 PM EDT MAGNESIUM STAT 02/11/2025 4:08 PM EDT LIPASE STAT 02/11/2025 4:08 PM EDT COMPREHENSIVE METABOLIC PANEL STAT 02/11/2025 4:08 PM EDT CBC AND DIFFERENTIAL STAT 02/11/2025 4:08 PM EDT TROPONIN I HIGH SENSITIVITY STAT 02/11/2025 4:08 PM EDT ECG 12-LEAD STAT 02/11/2025 4:02 PM EDT from Last 3 Months Results * ECG-Annotated (02/12/2025) us Provider Onbase MD ECG ORDERABLES Final Result * ECG 12 lead (02/11/2025 6:42 PM EDT) Only the most recent of2 resultswithin the time period is included. Ventricular Rate ECG 69 BPM GEMUSE Atrial Rate 69 BPM GEMUSE P-R Interval 142 ms GEMUSE QRS Duration 72 ms GEMUSE Q-T Interval 426 ms GEMUSE QTc 456 ms GEMUSE P Wave [place] 72 degrees GEMUSE R [place] 29 degrees GEMUSE T [place] 29 degrees GEMUSE ECG Interpretation Normal sinus rhythm Normal ECG When compared with ECG of 11-FEB-2025 16:02, (unconfirmed) No significant change was found Confirmed by MERLIN SIMONS ([id number]) on 02/13/2025 6:59:24 AM GEMUSE 02/11/2025 6:4 2 PM EDT 02/13/2025 6:59 AM EDT us Merlin Durbin DO ECG ORDERABLES Final Result Performing Organization Address [facility]/ZIP Co de Phone Number GEMUSE * Troponin I high sensitivity (02/11/2025 5:10 PM EDT) Only the most recent of2 resultswithin the time period is included. Pathologist [facility] High Sensitivity Troponin I 4 <=79 ng/L LAB CHEMISTRY METHOD 02/11/2025 5:45 PM EDT [facility] Blood Venous blood specimen / Unknown Venipuncture / Unknown 02/11/2025 5:10 PM EDT 02/11/2025 5:20 PM EDT Narrative [facility] - 02/11/2025 5:45 PM EDT High levels of biotin in samples may falsely decrease hsTroponin values. ??Use caution when interpreting hsTroponin results in patients taking biotin who exhibit renal impairment (eGFR <60) or in patients taking more than 20 mg/day of biotin. us Merlin Durbin DO LAB BLOOD ORDERABLES Final Res ult Performing Organization Address [facility]/State/ZIP Co de Phone Number [facility]) [facility] [address] [place] [address], [place] [phone] * XR Chest 2 Views (02/11/2025 4:58 PM EDT) Anatomical Region Laterality Modality Body Radiographic Sarah ging 02/11/2025 5:08 PM EDT Impressions 02/11/2025 5:08 PM EDT FINDINGS/IMPRESSION: Normal heart size and pulmonary vascularity. ??Lungs are clear and costophrenic angles are sharp. ??No acute osseous abnormality. -------- FINAL REPORT -------- Dictated By: Elizabeth Mcqueen Dictated Date: 02/11/2025 17:08 ET Assigned Physician: Elizabeth Mcqueen Reviewed and Electronically Signed By: Elizabeth Mcqueen Signed Date: 02/11/2025 17:08 ET Workstation ID: [id number] Transcribed By: Self Edit Transcribed Date: 02/11/2025 17:08 ET Narrative 02/11/2025 5:08 PM EDT XR CHEST 2 VIEWS INDICATION: chest pain TECHNIQUE: XR CHEST 2 VIEWS COMPARISON: No priors available. Procedure Note Elizabeth Mcqueen MD - 02/11/2025 XR CHEST 2 VIEWS INDICATION: chest pain TECHNIQUE: XR CHEST 2 VIEWS COMPARISON: No priors available. IMPRESSION: FINDINGS/IMPRESSION: Normal heart size and pulmonary vascularity. Lungsare clear and costophrenic angles are sharp. No acute osseousabnormality. -------- FINAL REPORT -------- Dictated By: Elizabeth Mcqueen Dictated Date: 02/11/2025 17:08 ET Assigned Physician: Elizabeth Mcqueen Reviewed and Electronically Signed By: Elizabeth Mcqueen Signed Date: 02/11/2025 17:08 ET Workstation ID: [id number] Transcribed By: Self Edit Transcribed Date: 02/11/2025 17:08 ET Merlin Durbin DO IMG XR PROCEDURES Final Result * (ABNORMAL) CBC auto differential (02/11/2025 4:08 PM EDT) WBC 5.3 4.8 - 10.8 K/[facility] LAB HEMETOLOGY METHOD 02/11/2025 5:38 PM EDT [facility] RBC 2.90(L) 4.50 - 5.50 M/[facility] LAB HEMETOLOGY METHOD 02/11/2025 5:38 PM EDT [facility] Hemoglobin 9.7(L) 13.5 - 17.5 g/dL LAB HEMETOLOGY METHOD 02/11/2025 5:[facility] Hematocrit 29.0(L) 42.0 - 54.0 % LAB HEMETOLOGY METHOD 02/11/2025 5:38 PM [facility] MCV 101.8(H) 79.0 - 98.0 FL LAB HEMETOLOGY METHOD 02/11/2025 5:38 PM [facility] MCH 34.0(H) 27.0 - 32.0 pcg LAB HEMETOLOGY METHOD 02/11/2025 5:38 PM [facility] MCHC 33.4 32.0 - 37.0 g/dL LAB HEMETOLOGY METHOD 02/11/2025 5:38 PM [facility] RDW 13.8 11.0 - 15.0 % LAB HEMETOLOGY METHOD 02/11/2025 5:38 PM [facility] Platelets 86(L) 130 - 400 K/mcL LAB HEMETOLOGY METHOD 02/11/2025 5:38 PM [facility] Comment:reviewed by slide MPV 9.9 7.0 - 11.0 FL LAB HEMETOLOGY METHOD 02/11/2025 5:38 PM [facility] NRBC 0.0 <1.0 % LAB HEMETOLOGY METHOD 02/11/2025 5:38 PM [facility] NRBC Absolute 0.00 <0.10 K/mcL LAB HEMETOLOGY METHOD 02/11/2025 5:38 PM [facility] Neutrophils Relative 35.4 % LAB HEMETOLOGY METHOD 02/11/2025 5:38 PM [facility] Lymphocytes Relative 48.9 % LAB HEMETOLOGY METHOD 02/11/2025 5:38 PM EDT [facility] Monocytes Relative 14.2 % LAB HEMETOLOGY METHOD 02/11/2025 5:38 PM EDT [facility] Eosinophils Relative 0.9 % LAB HEMETOLOGY METHOD 02/11/2025 5:38 PM EDT [facility] Basophils Relative 0.4 % LAB HEMETOLOGY METHOD 02/11/2025 5:38 PM EDT [facility] Immature Granulocytes Relative 0.2 % LAB HEMETOLOGY METHOD 02/11/2025 5:38 PM EDT [facility] Neutrophils Absolute 1.87 1.50 - 7.00 K/mcL LAB HEMETOLOGY METHOD 02/11/2025 5:38 PM EDT [facility] Lymphocytes Absolute 2.58 1.00 - 5.00 K/mcL LAB HEMETOLOGY METHOD 02/11/2025 5:38 PM EDT [facility] Monocytes Absolute 0.75 0.20 - 1.00 K/mcL LAB HEMETOLOGY METHOD 02/11/2025 5:38 PM EDT [facility] Eosinophils Absolute 0.05 0.00 - 0.50 K/mcL LAB HEMETOLOGY METHOD 02/11/2025 5:38 PM EDT [facility] Basophils Absolute 0.02 0.00 - 0.20 K/mcL LAB HEMETOLOGY METHOD 02/11/2025 5:38 PM EDT [facility] Immature Granulocytes Absolute 0.01 0.00 - 0.03 K/mcL LAB HEMETOLOGY METHOD 02/11/2025 5:38 PM EDT [facility] Blood Venous blood specimen / Unknown Venipuncture / Unknown 02/11/2025 4:08 PM EDT 02/11/2025 4:27 PM EDT us Merlin Durbin DO LAB BLOOD ORDERABLES Final Res ult [facility] [address] [place] [address], [place] [phone] * B-type natriuretic peptide (02/11/2025 4:08 PM EDT) Pathologist [facility] BNP 54 <=100 pcg/mL LAB CHEMISTRY METHOD 02/11/2025 5:11 PM EDT [facility] Blood Venous blood specimen / Unknown Venipuncture / Unknown 02/11/2025 4:08 PM EDT 02/11/2025 4:27 PM EDT us Merlin Durbin DO LAB BLOOD ORDERABLES Final Res ult Performing Organization Address City/[facility]/ZIP Co de Phone Number [facility] [address] [place] [address], [place] [phone] * Magnesium (02/11/2025 4:08 PM EDT) [facility] Magnesium 2.0 1.9 - 2.6 mg/dL LAB CHEMISTRY METHOD 02/11/2025 4:59 PM EDT [facility] Comment:Hemolysis present Blood Venous blood specimen / Unknown Venipuncture / Unknown 02/11/2025 4:08 PM EDT 02/11/2025 4:27 PM EDT us Merlin Durbin DO LAB BLOOD ORDERABLES Final Res ult [facility] [address] [place] [address], [place] [phone] * Lipase (02/11/2025 4:08 PM EDT) [facility] Lipase 43 13 - 75 unit/L LAB CHEMISTRY METHOD 02/11/2025 4:59 PM EDT [facility] Blood Venous blood specimen / Unknown Venipuncture / Unknown 02/11/2025 4:08 PM EDT 02/11/2025 4:27 PM EDT us Merlin Durbin DO LAB BLOOD ORDERABLES Final Res ult [facility] [address] [place] [address], [place] [phone] * (ABNORMAL) Comprehensive metabolic panel (02/11/2025 4:08 PM EDT) Sodium 130(L) 133 - 145 mmol/L LAB CHEMISTRY METHOD 02/11/2025 4:59 PM EDT [facility] Potassium 3.9 3.5 - 5.5 mmol/L LAB CHEMISTRY METHOD 02/11/2025 4:59 PM T [facility] Comment:Hemolysis present Chloride 94(L) 96 - 110 mmol/L LAB CHEMISTRY METHOD 02/11/2025 4:59 PM T [facility] CO2 26 21 - 32 mmol/L LAB CHEMISTRY METHOD 02/11/2025 4:59 PM [facility] Anion Gap 10 3 - 11 LAB CHEMISTRY METHOD 02/11/2025 4:59 PM [facility] Glucose 102(H) 70 - 100 mg/dL LAB CHEMISTRY METHOD 02/11/2025 4:59 PM [facility] BUN 15 5 - 25 mg/dL LAB CHEMISTRY METHOD 02/11/2025 4:59 PM [facility] Creatinine 1.15 0.70 - 1.30 mg/dL LAB CHEMISTRY METHOD 02/11/2025 4:59 PM [facility] eGFR 75 >=60 mL/min/1. 73m2 LAB CHEMISTRY METHOD 02/11/2025 4:59 PM [facility] Comment:Calculation based on the??Chronic Kidney Disease Epidemiology Collaboration (CKD-EPI) equation refit??without adjustment for race. BUN/Creatinine Ratio 13.0 LAB CHEMISTRY METHOD 02/11/2025 4:59 PM EDT [facility] Calcium 8.5 8.5 - 10.5 mg/dL LAB CHEMISTRY METHOD 02/11/2025 4:59 PM EDT [facility] AST (SGOT) 113(H) 10 - 42 unit/L LAB CHEMISTRY METHOD 02/11/2025 4:59 PM EDT [facility] Comment:Hemolysis present ALT (SGPT) 81(H) 10 - 60 unit/L LAB CHEMISTRY METHOD 02/11/2025 4:59 PM EDT [facility] Alkaline Phosphatase 159(H) 42 - 121 unit/L LAB CHEMISTRY METHOD 02/11/2025 4:59 PM EDT [facility] Total Protein 6.9 6.0 - 8.0 g/dL LAB CHEMISTRY METHOD 02/11/2025 4:59 PM EDT [facility] Albumin 2.8(L) 3.2 - 5.0 g/dL LAB CHEMISTRY METHOD 02/11/2025 4:59 PM EDT [facility] Total Bilirubin 1.0 0.0 - 1.4 mg/dL LAB CHEMISTRY METHOD 02/11/2025 4:59 PM EDT [facility] Blood Venous blood specimen / Unknown Venipuncture / Unknown 02/11/2025 4:08 PM EDT 02/11/2025 4:27 PM EDT us Merlin Durbin DO LAB BLOOD ORDERABLES Final Res ult [facility] [address] [place] [address], from Last 3 Months Insurance [facility] [address] [place] [address] Care Teams Arts Administrator Relationship Specialty Start Date End Date Gautam Cheema PA [address] [place] [address] PCP - General 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
== END 2025-02-25 11:34 | disposition home or self-care (01) ==
LOC: HO.HOS 11:22
PROVIDERS: PCP Physician Assistant; Visit Provider Orthopaedic Surgery
DX: Z96.642 Presence of left artificial hip joint (principal)
CPT/HCPCS: 99024

== ENCOUNTER 2025-03-30 13:16 | Outpatient (REF) | payer OTHER, SELFPAY ==
--- NOTE | ~2025-03-30 | CT_ITS ---
CLINICAL HISTORY: Z87.891 - Personal history of nicotine dependence CT lung cancer screening (LDCT) Comparison: None provided Technique: Axial CT images of the chest using low-dose technique. Referring provider counseled the patient on shared decision-making for LDCT screening. Additional counseling was provided on smoking cessation. Effective radiation dose total: DLP 53.6 mGycm, CTDIvol 1.4 mGy. Findings: Lung: Scattered micro nodules calcified granulomas. No suspicious lung nodule. No significant emphysematous changes. No evidence of mediastinal or hilar lymphadenopathy. Coronary artery calcifications: Mild Limited upper abdomen: Unremarkable Other: None Impression: Lung rads category 2; no suspicious lung nodules. Continue annual screening. Mild coronary artery calcifications. Category 1: Normal; continue annual screening Category 2: Benign appearance or behavior, continue annual screening Category 3: Probably benign, [address] recommended Category 4A: Suspicious, [address] recommended; may consider PET/CT Category 4B: Suspicious, Additional diagnostics and/or tissue sampling recommended Category 4X: Suspicious, Additional diagnostics and/or tissue sampling recommended Category 0: Recalls (incomplete screen due to Incomplete coverage, Noise, Respiratory motion, Expiration, Obscured by acute abnormality) This document has been electronically signed by: Jack Fung MD on 03/30/2025 23:06:20
--- OUTSIDE RECORDS SUMMARY | 2025-03-30 15:07 | XMS_ITS | Clinical Summary ---
Author Organization [facility] Address [address] [place] [address] Phone Care Team Providers Care Foreman/[employer] Name Role Phone Gautam Cheema Primary Care Provider Allergies No known active allergies Active Problems No known active problems Encounters Date Type Department Care Team Description 03/01/2025 4:00 PM EDT Treatment Outpatient Rehabilitation [address] [phone] Sylvia Zapata, [employer]CHIT[employer] Presence of left artificial hip joint (Primary Dx) 02/22/2025 4:00 PM EDT Treatment Outpatient [facility] - [address] [address] Sylvia Zapata, [employer] ARCHITECT Presence of left artificial hip joint (Primary Dx) 02/16/2025 11:15 AM EDT Evaluation Physical Therapy - [address] [phone] Mil Lucas, ABEL Presence of left artificial hip joint 02/16/2025 Plan of Care Documentation Physical Therapy - [address] [address] 02/11/2025 3:41 PM EDT - 02/11/2025 7:03 PM EDT Emergency [facility] [address] [place] [id number] Dizziness (Primary Dx) Discharge Disposition: Home or [...] 02/11/2025 3:22 PM EDT Plan of Treatment Health Maintenance Due Date Last Done Comments [...] resultswithin the time period is included. Pathologist [facility] Ventricular Rate ECG 69 BPM GEMUSE Atrial Rate 69 BPM GEMUSE P-R Interval 142 ms GEMUSE QRS Duration 72 ms GEMUSE Q-T Interval 426 ms GEMUSE QTc 456 ms GEMUSE P Wave [place] 72 degrees GEMUSE R [place] 29 degrees GEMUSE T [place] 29 degrees GEMUSE ECG Interpretation Normal sinus rhythm Normal ECG When compared with ECG of 11-FEB-2025 16:02, (unconfirmed) No significant change was found Confirmed by MERLIN SIMONS ([id number]) on 02/13/2025 6:59:24 AM GEMUSE 02/11/2025 6:42 PM EDT 02/13/2025 6:59 AM EDT us Merlin Durbin DO ECG ORDERABLES Final Result Performing Organization Address [facility] de Phone Number GEMUSE * Troponin I high sensitivity (02/11/2025 5:10 PM EDT) Only the most recent of2 resultswithin the time period is included. [facility] High Sensitivity Troponin I 4 <=79 ng/L LAB CHEMISTRY METHOD 02/11/2025 5:45 PM EDT [facility] Blood Venous blood specimen / Unknown Venipuncture / Unknown 02/11/2025 5:10 PM EDT 02/11/2025 5:20 PM EDT Narrative [facility] - 02/11/2025 5:45 PM EDT High levels of biotin in samples may falsely decrease hsTroponin values. ??Use caution when interpreting hsTroponin results in patients taking biotin who exhibit renal impairment (eGFR <60) or in patients taking more than 20 mg/day of biotin. us Merlin Durbin DO LAB BLOOD ORDERABLES Final Res ult Performing Organization Address [facility]/ZIP Co de Phone Number [facility] [address] [place] [address], * XR Chest 2 Views (02/11/2025 4:58 [...] Signed Date: 02/11/2025 17:08 ET Workstation ID: [id number] Transcribed By: Self Edit Transcribed Date: 02/11/2025 [...] Signed Date: 02/11/2025 17:08 ET Workstation ID: [id number] Transcribed By: Self Edit Transcribed Date: 02/11/2025 17:08 ET Merlin Durbin DO IMG XR PROCEDURES Final Result * (ABNORMAL) CBC auto differential (02/11/2025 4:08 PM EDT) WBC 5.3 4.8 - 10.8 K/mcL LAB HEMETOLOGY [facility] RBC 2.90(L) 4.50 - 5.50 M/mcL LAB HEMETOLOGY METHOD 02/11/2025 5:38 PM [facility] Hemoglobin 9.7(L) 13.5 - 17.5 g/dL LAB HEMETOLOGY METHOD 02/11/2025 5:38 PM [facility] Hematocrit 29.0(L) 42.0 - 54.0 % LAB HEMETOLOGY METHOD 02/11/2025 5:38 PM [facility] MCV 101.8(H) 79.0 - 98.0 FL LAB HEMETOLOGY METHOD 02/11/2025 5:38 PM [facility] MCH 34.0(H) 27.0 - 32.0 pcg LAB HEMETOLOGY METHOD 02/11/2025 5:38 PM [facility] MCHC 33.4 32.0 - 37.0 g/dL LAB HEMETOLOGY METHOD 02/11/2025 5:38 PM [facility] RDW 13.8 11.0 - 15.0 % LAB HEMETOLOGY METHOD 02/11/2025 5:38 PM [facility] Platelets 86(L) 130 - 400 K/mcL LAB HEMETOLOGY METHOD 02/11/2025 5:38 PM [facility] Comment:reviewed by slide MPV 9.9 7.0 - 11.0 FL LAB HEMETOLOGY METHOD 02/11/2025 5:38 PM [facility] NRBC 0.0 <1.0 % LAB HEMETOLOGY METHOD 02/11/2025 5:38 PM [facility] NRBC Absolute 0.00 <0.10 K/mcL LAB HEMETOLOGY METHOD 02/11/2025 5:38 PM [facility] Neutrophils Relative 35.4 % LAB HEMETOLOGY METHOD 02/11/2025 5:38 PM [facility] Lymphocytes Relative 48.9 % LAB HEMETOLOGY METHOD 02/11/2025 5:38 PM [facility] Monocytes Relative 14.2 % LAB HEMETOLOGY METHOD 02/11/2025 5:38 PM [facility] Eosinophils Relative 0.9 % LAB HEMETOLOGY METHOD 02/11/2025 5:38 PM [facility] Basophils Relative 0.4 % LAB HEMETOLOGY METHOD 02/11/2025 5:38 PM [facility] Immature Granulocytes Relative 0.2 % LAB HEMETOLOGY METHOD 02/11/2025 5:38 PM [facility] Neutrophils Absolute 1.87 1.50 - 7.00 K/mcL LAB HEMETOLOGY METHOD 02/11/2025 5:38 PM [facility] Lymphocytes Absolute 2.58 1.00 - 5.00 K/mcL LAB HEMETOLOGY METHOD 02/11/2025 5:38 PM [facility] Monocytes Absolute 0.75 0.20 - 1.00 K/mcL LAB HEMETOLOGY METHOD 02/11/2025 5:38 PM [facility] Eosinophils Absolute 0.05 0.00 - 0.50 K/mcL LAB HEMETOLOGY METHOD 02/11/2025 5:38 PM [facility] Basophils Absolute 0.02 0.00 - 0.20 K/mcL LAB HEMETOLOGY METHOD 02/11/2025 5:38 PM [facility] Immature Granulocytes Absolute 0.01 0.00 - 0.03 K/mcL LAB HEMETOLOGY METHOD 02/11/2025 5:38 PM [facility] Blood Venous blood specimen / Unknown Venipuncture / Unknown 02/11/2025 4:08 PM EDT 02/11/2025 4:27 PM EDT us Merlin Durbin DO LAB BLOOD ORDERABLES Final Res ult Performing Organization Address [facility]/ZIP Co de Phone Number [facility] [address] [place] [address], [place] [phone] * B-type natriuretic peptide (02/11/2025 4:08 PM EDT) BNP 54 <=100 pcg/mL LAB CHEMISTRY METHOD 02/11/2025 5:11 PM EDT [facility] Blood Venous blood specimen / Unknown Venipuncture / Unknown 02/11/2025 4:08 PM EDT 02/11/2025 4:27 PM EDT us Merlin Durbin DO LAB BLOOD ORDERABLES Final Res ult Performing Organization Address [facility] Co de Phone Number [facility] [address] [place] [address], [place] [phone] * Magnesium (02/11/2025 4:08 PM EDT) [facility] Magnesium 2.0 1.9 - 2.6 mg/dL LAB CHEMISTRY METHOD 02/11/2025 4:59 PM EDT [facility] Comment:Hemolysis present Blood Venous blood specimen / Unknown Venipuncture / Unknown 02/11/2025 4:08 PM EDT 02/11/2025 4:27 PM EDT us Merlin Durbin DO LAB BLOOD ORDERABLES Final Res ult Performing Organization Address [facility]/ZIP Co de Phone Number [facility] [address] [place] [address], [place] [phone] * Lipase (02/11/2025 4:08 PM EDT) Pathologist [facility] Lipase 43 13 - 75 unit/L LAB CHEMISTRY METHOD 02/11/2025 4:59 PM T [facility] Blood Venous blood specimen / Unknown Venipuncture / Unknown 02/11/2025 4:08 PM EDT 02/11/2025 4:27 PM EDT us Merlin Durbin DO LAB BLOOD ORDERABLES Final Res ult [facility] [address] [place] [address], [place] [phone] * (ABNORMAL) Comprehensive metabolic panel (02/11/2025 4:08 PM EDT) Sodium 130(L) 133 - 145 mmol/L LAB CHEMISTRY METHOD 02/11/2025 4:59 PM [facility] Potassium 3.9 3.5 - 5.5 mmol/L LAB CHEMISTRY METHOD 02/11/2025 4:59 PM [facility] Comment:Hemolysis present Chloride 94(L) 96 - 110 mmol/L LAB CHEMISTRY METHOD 02/11/2025 4:59 PM [facility] CO2 26 21 - 32 mmol/L LAB CHEMISTRY METHOD 02/11/2025 4:59 PM [facility] Anion Gap 10 3 - 11 LAB CHEMISTRY METHOD 02/11/2025 4:59 PM [facility] Glucose 102(H) 70 - 100 mg/dL LAB CHEMISTRY METHOD 02/11/2025 4:59 PM [facility] BUN 15 5 - 25 mg/dL LAB CHEMISTRY METHOD 02/11/2025 4:59 PM [facility] Creatinine 1.15 0.70 - 1.30 mg/dL LAB CHEMISTRY METHOD 02/11/2025 4:59 PM [facility] eGFR 75 >=60 mL/min/1. 73m2 LAB CHEMISTRY METHOD 02/11/2025 4:59 PM [facility] Comment:Calculation based on the??Chronic Kidney Disease Epidemiology Collaboration (CKD-EPI) equation refit??without adjustment for race. BUN/Creatinine Ratio 13.0 LAB CHEMISTRY METHOD 02/11/2025 4:59 PM EDT [facility] Calcium 8.5 8.5 - 10.5 mg/dL LAB CHEMISTRY METHOD 02/11/2025 4:59 PM [facility] AST (SGOT) 113(H) 10 - 42 unit/L LAB CHEMISTRY METHOD 02/11/2025 4:59 PM T [facility] Comment:Hemolysis present ALT (SGPT) 81(H) 10 - 60 unit/L LAB CHEMISTRY METHOD 02/11/2025 4:59 PM [facility] Alkaline Phosphatase 159(H) 42 - 121 unit/L LAB CHEMISTRY METHOD 02/11/2025 4:59 PM EDT [facility] Total Protein 6.9 6.0 - 8.0 g/dL LAB CHEMISTRY METHOD 02/11/2025 4:59 PM EDT [facility] Albumin 2.8(L) 3.2 - 5.0 g/dL LAB CHEMISTRY METHOD 02/11/2025 4:59 PM [facility] Total Bilirubin 1.0 0.0 - 1.4 mg/dL LAB CHEMISTRY METHOD 02/11/2025 4:59 PM T [facility] Blood Venous blood specimen / Unknown Venipuncture / Unknown 02/11/2025 4:08 PM EDT 02/11/2025 4:27 PM EDT us Merlin Durbin DO LAB BLOOD ORDERABLES Final Res ult [facility] [address] [place] [address], [place] [phone] from Last 3 Months Insurance [facility] [address] [place] [address] Care Teams Foreman/[employer] Relationship Specialty Start Date End Date Gautam Cheema PA [address] [place] [address] PCP - General Physician [employer] Intelligence Officer Chief 02/08/25
== END 2025-03-30 13:17 | disposition home or self-care (01) ==
LOC: HO.CT 13:16
PROVIDERS: PCP Physician Assistant; Visit Provider Physician Assistant Medical
DX: Z12.2 Encounter for screening for malignant neoplasm of respiratory organs (principal); Z87.891 Personal history of nicotine dependence
CPT/HCPCS: 71271

== ENCOUNTER → 2025-03-30 13:18 | Outpatient (BNV) | payer OTHER, SELFPAY | PROVIDERS: PCP Physician Assistant; Visit Provider Student in an Organized Health Care Education/Training Program | DX: Z87.891 Personal history of nicotine dependence (principal) | CPT/HCPCS: 71271 ==

== ENCOUNTER 2025-03-31 08:50 | Outpatient (AMB) | payer OTHER, SELFPAY ==
[2025-03-31 09:00] VITALS: BP 170/76; PULSE 66; RESP 18; TEMP 36.3; O2SAT 98; BMI 26.8
--- NOTE | 2025-03-31 09:00 | A.OFFPC_ITS ---
Vital Signs 03/31/25 09:00 Height 5 ft 9 in Weight 181 lb 3.2 oz BMI 26.8 BP 170/76 H Blood Pressure Location Lt brachial Position Sitting Respiration 18 Pulse 66 Pulse Source Pulse Oximeter Temp 97.3 F Temp Source Temporal Artery Scan Pulse Oximetry (%) 98 Oxygen Delivery Method Room Air Intake Visit Reasons: annual exam - see comments Automotive Buyer Required: No Accompanied by: Self / Same As Patient Allergies No Known Allergies Allergy (Verified 03/31/25 09:12) Medication List - Last Reconciled 03/31/25 by Gautam Cheema PA-C multivitamin 1 tab PO DAILY Tobacco use date assessed: 03/31/25 Dental Screening Dental Screen Date: 03/31/25 Did you have a dental visit in the last 12 months?: No Did you have a dental problem in the last 6 months where you did not have access to dental care?: No Was dental information given to patient?: No HPI annual exam - see comments HPI Details Patient is a 54-year-old male here today for annual physical. Patient has a past medical history significant for essential hypertension, Hyperlipidemia tobacco dependency, emphysema, left total hip replacement. Recent underwent left hip arthroplasty and doing very well. Hypertension: He reports today having a cup of coffee before today's visit. Blood pressure very elevated today in office. He reports he has stopped using lisinopril due to episodes of dizziness and hypotension. Will restart lisinopril at lower dose 5 mg for better blood pressure control. At this time He is asymptomatic without any chest discomfort, headaches or vision issues. . .. Tobacco use disorder: Has been trying to reduce his smoking with nicotine replacement which has been helpful. VAccie:UTD with TDap, decline COVID Flu. need PCV Colon cancer screening : done 2023- polyp found repeat 5 years [facility] Medical History Personal history of nicotine dependence Avascular necrosis of bone of left hip Osteoarthritis of left hip HTN (hypertension) Lipoma Osteoarthritis Varicose vein of leg Wears glasses Wears dentures Use of cane as ambulatory aid HLD (hyperlipidemia) Overweight (BMI 25.0-29.9) Essential hypertension Surgical History History of total left hip replacement Hx of colonoscopy (~07/2024) Family History Mother Liver cancer Father Heart attack, Onset Age: 69 Diabetes Brother Diabetes Social History (Updated 03/31/25 @ 09:17 by Gautam Cheema PA-C) Household Members: Spouse Housing: House Are you a primary palliative care coordinator to a significant other at home: No Do you presently have visiting nurse or other home services: No 75 years or older and lives alone: No Alcohol intake: current Alcohol intake frequency: a few times a week Alcohol type: beer Patient Tobacco Use Status: Current someday Tobacco user (Work days; 1 cigarette in the AM with coffee) Tobacco use type: Cigarette Cigarettes Per Day: 1 Years Smoked: (onset 19yo, 1ppd x 34yrs, 30+PYH) e-Cigarette/Vaping Use: Never Used Second Hand Smoke Exposure: No service: No Current occupational status: employed 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 1. Little interest or pleasure in doing things: not at all 2. Feeling down, depressed, or hopeless: not at all 3. Trouble falling or staying asleep, or sleeping too much: not at all 4. Feeling tired or having little energy: not at all 5. Poor appetite or overeating: not at all 6. Feeling bad about yourself - or that you are a failure or have let yourself or your family down: not at all 7. Trouble concentrating on things, such as reading the newspaper or watching television: not at all 8. Moving or speaking so slowly that other people could have noticed. Or the opposite - being so fidgety or restless that you have been moving around a lot more than usual: not at all 9. Thoughts that you would be better off or of hurting yourself in some way: not at all Total score: 0 Depression Screening Interpretation: Negative Depression Screening Done: Yes 49585 - PHQ-9 Billing: Yes Source: Developed by Drs. Rick Alonzo, Noemy Neal, Juan R Plascencia and colleagues, with an educational obey from [email or web address]. Thrive Questionnaire Date Thrive assessed: 03/31/25 I am a: Patient What is your living situation today?: I have a steady place to live Within the past 12 months, did the food you bought not last and you didn't have the money to get more?: I choose not to answer this question Within the past 12 months, did you worry whether your food would run out before you got money to buy more?: I choose not to answer this question Do you have trouble paying for medicines?: No Do you have trouble getting transportation to medical appointments?: No Do you have trouble paying your heating and electricity bill?: No Do you have trouble taking care of your child, family member or friend?: No Do you have trouble with day-to-day activities such as bathing, preparing meals, shopping, managing finances, etc.?: I choose not to answer this question Are you currently unemployed and looking for a job?: I choose not to answer this question Are you interested in more education?: I choose not to answer this question Please select the resources that you would like help with: None Currently or been in a relationship where the following occur: I choose not to answer THRIVE Score: 0 AUDIT C Alcohol Use Questionnaire (AUDIT-C) 1. How often do you have a drink containing alcohol?: 2-4 times a month 2. How many drinks containing alcohol do you have on a typical day when you are drinking?: 5 or 6 3. How often do you have six or more drinks on one occasion?: Monthly Total Score: 6 Score Reviewed/Action Taken: Yes LUIS DANIEL-7 AMB Questionnaire LUIS DANIEL-7 Date LUIS DANIEL - 7 assessed: 03/31/25 Feeling nervous, anxious, or on edge: 0 = Not at all Not being able to stop or control worryin = Not at all Worrying too much about different things: 0 = Not at all Trouble relaxin = Not at all Being so restless that it is hard to sit still: 0 = Not at all Becoming easily annoyed or irritable: 0 = Not at all Feeling afraid as if something awful might happen: 0 = Not at all Total LUIS DANIEL-7 score (0-4 normal; 5-9 mild; 10-14 moderate; 15-21 severe): 0 Source: Developed by Drs. Rick Alonzo, Noemy Neal, Juan R Plascencia and colleagues, with an educational obey from [email or web address]. LUIS DANIEL-7 Assessment Billing LUIS DANIEL-7 Assessment Tool: LUIS DANIEL-7 Assessment 73745 Review of Systems Const Denies body aches, Denies chills, Denies excessive sweating, Denies fatigue, Denies fever(s) and Denies headache(s) Eyes Denies blurry vision ENT Denies dysphagia, Denies vertigo, Denies dizziness, Denies headache(s), Denies hearing loss and Denies tinnitus Card Denies chest pain, Denies chest pain with activity, Denies syncope, Denies irregular heart rhythm and Denies dyspnea Resp Denies chest congestion, Denies cough, Denies hemoptysis, Denies dyspnea and Denies wheezing GI Denies abdominal pain, Denies melena, Denies hematochezia, Denies coffee ground emesis, Denies dysphagia, Denies diarrhea, Denies nausea and Denies vomiting Denies difficulty urinating, Denies dysuria, Denies urinary frequency, Denies urinary hesitancy and Denies urinary urgency Musc Denies arthralgias, Denies limited range of motion, Denies muscle cramps and Denies muscle weakness Skin/Breast Denies rash and Denies skin ulcer Neuro Denies Abnormal speech present, Denies confusion, Denies vertigo, Denies dizziness, Denies syncope, Denies headache(s), Denies memory loss and Denies seizure-like activity Psych Denies anxiety, Denies confusion, Denies depression, Denies memory loss, Denies panic attacks and Denies paranoia Endo Denies excessive sweating, Denies fatigue, Denies flushing, Denies polydipsia and Denies polyuria Aller/Immun Denies wheezing Physical exam (Primary Care) Vital Signs: Last Vital Signs Temp 97.3 F 03/31/25 09:00 Pulse 66 03/31/25 09:00 Resp 18 03/31/25 09:00 BP 170/76 H 03/31/25 09:00 Pulse Ox 98 03/31/25 09:00 Oxygen Delivery Method Room Air 03/31/25 09:00 BMI result Body Mass Index 26.8 Tobacco/Smoking Status: Tobacco use Status Tobacco use date assessed 03/31/25 03/31/25 09:10 Patient Tobacco Use Status Current someday Tobacco ( 03/31/25 09:10 Work days; 1 cigarette in the AM with coffee) Tobacco use type Cigarette 03/31/25 09:10 e-Cigarette/Vaping Use Never Used 03/31/25 09:10 Are you ready to quit: No Tobacco cessation counseling provided: Yes Items discussed: Nicotine replacement and QuitWorks Relapse Prevention: discussed the importance of a supportive environment, discussed negative mood or depression after quitting, weight gain after smoking is common and discussed dietary, exercise and/or lifestyle changes Number of minutes spent counselin CPT code: 20849 - 4-10 Minutes PHQ-9: PHQ-9 Score PHQ-9: Total score 0 03/31/25 09:10 Depression Screening Interpretation: Negative Thrive Assessment: Date of Thrive Assessment Date Thrive assessed 03/31/25 03/31/25 09:10 Currently or been in a relationship where the following occur: I choose not to answer Const General: cooperative, comfortable, no acute distress, alert and awake; No confusion Orientation/consciousness: oriented to person, oriented to place, patient oriented x3 and No confusion HENMT Head: Yes normocephalic Ears: external ears normal and TM's normal bilaterally Face and sinus: No sinus tenderness Mouth: Normal oral and palatal mucosa present and tongue normal Teeth and gingiva: dentition normal and gingiva normal Throat: Yes posterior oropharynx normal, Yes tonsils normal and Yes uvula midline Eyes Conjunctivae: conjunctivae normal Sclerae: sclerae normal Pupils: Equal, round and reactive pupils present EOM: EOMs intact bilaterally Direct Ophthalmoscopy: No no photophobia Neck Neck: Yes no lymphadenopathy, No tender and Yes no JVD Thyroid: Thyroid normal Carotids: no bruits Chest Chest palpation & inspection: no tenderness Resp Effort & Inspection: normal respiratory effort, no audible wheezes, not labored and no stridor Auscultation: no crackles, no rales, no rhonchi and no wheezes Cardio Jugular venous distension: no JVD Rate: regular rate, not bradycardic and not tachycardic Rhythm: regular rhythm Bruits: no carotid bruits Peripheral pulses: Peripheral pulses 2+ throughout GI Inspection: Yes normal to inspection, No abdominal wall ecchymosis and No visible herniation Palpation (GI): Soft to palpation, nontender, no guarding, not rigid and No hepatosplenomegaly present Auscultation: normoactive bowel sounds General: Yes no CVA tenderness Back/Spine/Pelvis Back: no CVA tenderness and No back tenderness Cervical Spine: cervical ROM normal Thoracic/Lumbar Spine: thoracic and lumbar spine normal to inspection, straight leg raise negative bilaterally, No thoraco-lumbar ROM limited and No lumbar sp inal tenderness Skin Lesions: no lesions Rashes: no rashes Wounds: no wounds Neuro General: oriented to person, oriented to place, patient oriented x3, CN's II-XI intact bilaterally and No confusion Cranial nerves: Yes Equal, round and reactive pupils present and Yes Normal accommodation reflex present Cognition (Neuro): normal cognition Speech: No Abnormal speech present Gait exam (Neuro): Normal gait present Motor exam (neuro): 5/5 motor strength present throughout Extrem Right upper extremity: full ROM; no cyanosis Left upper extremity: full ROM; no cyanosis Right lower extremity: no edema Left lower extremity: no edema Psych Appearance: grossly normal Mental Status: mental status grossly normal Affect: normal affect Attitude: cooperative Thought process: Normal thought process present Coding Level of Care Code Est Pt Prev Care 40-64y(91528) Diagnoses Annual physical exam Z00.00 Primary hypertension I10 Hypertension type: primary hypertension Nicotine dependence, cigarettes, uncomplicated F17.210 Pulmonary emphysema, unspecified emphysema type J43.9 Emphysema type: unspecified Status post total replacement of left hip Z96.642 Additional Codes LUIS DANIEL-7 Assessment Billing - LUIS DANIEL-7 Assessment Tool: LUIS DANIEL-7 Assessment 91144 ([id number]) PHQ-9 - 63445 - PHQ-9 Billing: Yes ([id number]) Vital Signs *Quality* - CPT code: 12167 - 4-10 Minutes ([id number]) Assessment & Plan Assessment & Plan (1) Annual physical exam: Code(s): Z00.00 - Encounter for general adult medical examination without abnormal findings Category: Medical Plan: As per HPI (2) HTN (hypertension): Code(s): I10 - Essential (primary) hypertension Category: Medical Qualifiers: Hypertension type: primary hypertension Qualified Code(s): I10 - Essential (primary) hypertension Plan: Patient's blood pressure elevated today in office, was on lisinopril 20 mg though was experiencing hypo tension episodes. Will reduce his dose to 5 mg and continue monitoring blood pressure at home. goal blood pressure to remain below 140/90 (3) Nicotine dependence, cigarettes, uncomplicated: Comment: (onset 19yo, 1ppd x 34yrs, 30+PYH - quit 11/02/2024) Code(s): F17.210 - Nicotine dependence, cigarettes, uncomplicated Category: Medical Plan: He does report still smoking 1 or 2 cigarettes per day. He does understand he needs to completely quit. He has a lung cancer screening program and most recent CT lung showing stable nodules, repeat 1 year screening (4) Emphysema lung: Code(s): J43.9 - Emphysema, unspecified Category: Medical Qualifiers: Emphysema type: unspecified Qualified Code(s): J43.9 - Emphysema, unspecified Plan: As above patient denies any pulmonary symptoms in continues in a lung cancer screening program. (5) Status post total replacement of left hip: Code(s): Z96.642 - Presence of left artificial hip joint Category: Surgical Plan: Patient is status post left hip arthroplasty, doing very well, he has been more physically active and has lost weight. He has recently finished up physical therapy. Orders: Orders Lipid Panel Today E78.1 - Pure hyperglyceridemia Comprehensive [place]. Panel Fast Today I10 - Essential (primary) hypertension Prostate Specific Antigen Scr Today I10 - Essential (primary) hypertension, Z12.5 - Encounter for screening for malignant neoplasm of prostate Complete Blood Count no Diff Today I10 - Essential (primary) hypertension Medications: New lisinopril 5 mg PO DAILY 90 tabs 1RF 90 days I10 - Essential (primary) hypertension Patient Instructions: Goal: Blood pressure to be below 140/90, quit smoking Barriers: Adherence to physical activity and healthy eating habits
--- OUTSIDE RECORDS SUMMARY | 2025-03-31 09:23 | XMS_ITS | Clinical Summary ---
Author Organization [facility] Address [address] [place] [address] Phone Care Team Providers Care Scarrer Name Role Phone Gautam Cheema Primary Care Provider Allergies No known active allergies Active Problems No known active problems Encounters Date Type Department Care Team Description 03/01/2025 4:00 PM EDT Treatment Outpatient Rehabilitation [address] [address] Sylvia Zapata, FORMING MACHINE UPKEEP MECHANIC HELPER Presence of left artificial hip joint (Primary Dx) 02/22/2025 4:00 PM EDT Treatment Outpatient [facility] - [address] [address] Sylvia Zapata, FORMING MACHINE UPKEEP MECHANIC HELPER Presence of left artificial hip joint (Primary Dx) 02/16/2025 11:15 AM EDT Evaluation Physical Therapy - [address] [address] Mil Lucas, ABEL Presence of left artificial hip joint 02/16/2025 Plan of Care Documentation Physical Therapy - [address] [phone] 02/11/2025 3:41 PM EDT - 02/11/2025 7:03 PM EDT Emergency [facility] Emergency [address] [place] [id number] Dizziness (Primary Dx) Discharge Disposition: Home or [...] 83 02/11/2025 3:22 PM EDT Temperature 36.6 C (97.9 F) 02/11/2025 3:22 PM EDT Respiratory Rate 16 02/11/2025 3:22 PM EDT [...] GEMUSE QTc 456 ms GEMUSE P Wave Sterling 72 degrees GEMUSE R Sterling 29 degrees GEMUSE T Sterling 29 degrees GEMUSE ECG Interpretation Normal sinus rhythm Normal ECG When compared with ECG of 11-FEB-2025 16:02, (unconfirmed) No significant change was found Confirmed by MERLIN SIMONS ([id number]) on 02/13/2025 6:59:24 AM GEMUSE 02/11/2025 6:42 PM EDT 02/13/2025 6:59 AM EDT us Merlin Durbin DO ECG ORDERABLES Final Result Performing Organization Address [facility] de Phone Number GEMUSE * Troponin I high sensitivity (02/11/2025 5:10 PM EDT) Only the most recent of2 resultswithin the time period is included. Pathologist [facility] High Sensitivity Troponin I 4 <=79 ng/L LAB CHEMISTRY METHOD 02/11/2025 5:[address] [facility] Blood Venous blood specimen / Unknown Venipuncture / Unknown 02/11/2025 5:10 PM EDT 02/11/2025 5:[address] [facility] - 02/11/2025 5:45 PM EDT High levels of biotin in samples may falsely decrease hsTroponin values. Use caution when interpreting hsTroponin results in patients taking biotin who exhibit renal impairment (eGFR <60) or in patients taking more than 20 mg/day of biotin. us Merlin Durbin DO LAB BLOOD ORDERABLES Final Res ult Performing Organization Address [facility]/ZIP Co de Phone Number [facility] [address] [place] [address], [place] [phone] * XR Chest 2 Views (02/11/2025 4:58 PM EDT) Anatomical Region Laterality Modality Body Radiographic Sarah ging 02/11/2025 5:08 PM EDT Impressions 02/11/2025 5:08 PM EDT FINDINGS/IMPRESSION: Normal heart size and pulmonary vascularity. Lungs are clear and costophrenic angles are sharp. No acute osseous abnormality. -------- FINAL REPORT -------- Dictated By: Elizabeth Mcqueen Dictated Date: 02/11/2025 17:08 ET Assigned Physician: Elizabeth Mcqueen Reviewed and Electronically Signed By: Elizabeth Mcqueen Signed Date: 02/11/2025 17:08 ET Workstation ID: [id number] Transcribed By: Self Edit Transcribed Date: 02/11/2025 [...] Signed Date: 02/11/2025 17:08 ET Workstation ID: [id number] Transcribed By: Self Edit Transcribed Date: 02/11/2025 17:08 ET us Merlin Durbin DO IMG XR PROCEDURES Final Result * (ABNORMAL) CBC auto differential (02/11/2025 4:08 PM EDT) WBC 5.3 4.8 - 10.8 /[facility] LAB HEMETOLOGY METHOD 02/11/2025 5:[address] [facility] RBC 2.90(L) 4.50 - 5.50 M/mcL LAB HEMETOLOGY METHOD 02/11/2025 5:[address] [facility] Hemoglobin 9.7(L) 13.5 - 17.5 g/dL LAB HEMETOLOGY METHOD 02/11/2025 5:[address] [facility] Hematocrit 29.0(L) 42.0 - 54.0 % LAB HEMETOLOGY METHOD 02/11/2025 5:[address] [facility] MCV 101.8(H) 79.0 - 98.0 FL LAB HEMETOLOGY METHOD [facility] MCH 34.0(H) 27.0 - 32.0 pcg LAB HEMETOLOGY METHOD 02/11/2025 5:[facility] MCHC 33.4 32.0 - 37.0 g/dL LAB HEMETOLOGY METHOD 02/11/2025 5:38 [facility] RDW 13.8 11.0 - 15.0 % LAB HEMETOLOGY METHOD 02/11/2025 5:38 [facility] Platelets 86(L) 130 - 400 K/mcL LAB HEMETOLOGY METHOD 02/11/2025 5:[address] [facility] Comment:reviewed by slide MPV 9.9 7.0 - 11.0 FL LAB HEMETOLOGY METHOD 02/11/2025 5:[facility] NRBC 0.0 <1.0 % LAB HEMETOLOGY METHOD 02/11/2025 5:38 [facility] NRBC Absolute 0.00 <0.10 K/mcL LAB HEMETOLOGY METHOD 02/11/2025 5:38 [facility] Neutrophils Relative 35.4 % LAB HEMETOLOGY METHOD 02/11/2025 5:38 PM [facility] Lymphocytes Relative 48.9 % LAB HEMETOLOGY METHOD 02/11/2025 5:38 PM [facility] Monocytes Relative 14.2 % LAB HEMETOLOGY METHOD 02/11/2025 5:38 PM [facility] Eosinophils Relative 0.9 % LAB HEMETOLOGY METHOD 02/11/2025 5:38 PM [facility] Basophils Relative 0.4 % LAB HEMETOLOGY METHOD 02/11/2025 5:38 PM [facility] Immature Granulocytes Relative 0.2 % LAB HEMETOLOGY METHOD 02/11/2025 5:38 PM [facility] Neutrophils Absolute 1.87 1.50 - 7.00 K/mcL LAB HEMETOLOGY METHOD 02/11/2025 5:38 PM [facility] Lymphocytes Absolute 2.58 1.00 - 5.00 K/mcL LAB HEMETOLOGY METHOD 02/11/2025 5:38 PM [facility] Monocytes Absolute 0.75 0.20 - 1.00 K/mcL LAB HEMETOLOGY METHOD 02/11/2025 5:38 PM [facility] Eosinophils Absolute 0.05 0.00 - 0.50 K/mcL LAB HEMETOLOGY METHOD 02/11/2025 5:38 PM [facility] Basophils Absolute 0.02 0.00 - 0.20 K/mcL LAB HEMETOLOGY METHOD 02/11/2025 5:38 PM [facility] Immature Granulocytes Absolute 0.01 0.00 - 0.03 K/mcL LAB HEMETOLOGY METHOD 02/11/2025 5:38 PM [facility] Blood Venous blood specimen / Unknown Venipuncture / Unknown 02/11/2025 4:08 PM EDT 02/11/2025 4:27 PM EDT Merlin Durbin DO LAB BLOOD ORDERABLES Final Res ult Performing Organization Address City/[facility]/ZIP Co de Phone Number [facility] [address] [place] [address], [place] [phone] * B-type natriuretic peptide (02/11/2025 4:08 PM EDT) BNP 54 <=100 pcg/mL LAB CHEMISTRY METHOD 02/11/2025 5:[address] [facility] Blood Venous blood specimen / Unknown Venipuncture / Unknown 02/11/2025 4:08 PM EDT 02/11/2025 4:27 PM EDT us Merlin Durbin DO LAB BLOOD ORDERABLES Final Res ult Performing Organization Address [facility] Co de Phone Number [facility] [address] [place] [address], [place] [phone] * Magnesium (02/11/2025 4:08 PM EDT) [facility] Magnesium 2.0 1.9 - 2.6 mg/dL LAB CHEMISTRY METHOD 02/11/2025 4:[address] [facility] Comment:Hemolysis present Blood Venous blood specimen / Unknown Venipuncture / Unknown 02/11/2025 4:08 PM EDT 02/11/2025 4:27 PM EDT Merlin Durbin DO LAB BLOOD ORDERABLES Final Res ult Performing Organization Address [facility]/ZIP Co de Phone Number [facility] [address] [place] [address], [place] [phone] * Lipase (02/11/2025 4:08 PM EDT) Pathologist [facility] Lipase 43 13 - 75 unit/L LAB CHEMISTRY METHOD 02/11/2025 4:[address] [facility] Blood Venous blood specimen / Unknown Venipuncture / Unknown 02/11/2025 4:08 PM EDT 02/11/2025 4:27 PM EDT us Merlin Durbin DO LAB BLOOD ORDERABLES Final Res ult [facility] [address] [place] [address], [place] [phone] * (ABNORMAL) Comprehensive metabolic panel (02/11/2025 4:08 PM EDT) Sodium 130(L) 133 - 145 mmol/L LAB CHEMISTRY METHOD 02/11/2025 4:59 PM [facility] Potassium 3.9 3.5 - 5.5 mmol/L LAB CHEMISTRY METHOD 02/11/2025 4:59 PM [facility] Comment:Hemolysis present Chloride 94(L) 96 - 110 mmol/L LAB CHEMISTRY METHOD 02/11/2025 4:59 PM [facility] CO2 26 21 - 32 mmol/L LAB CHEMISTRY METHOD 02/11/2025 4:59 PM [facility] Anion Gap 10 3 - 11 LAB CHEMISTRY METHOD 02/11/2025 4:59 PM [facility] Glucose 102(H) 70 - 100 mg/dL LAB CHEMISTRY METHOD 02/11/2025 4:59 PM [facility] BUN 15 5 - 25 mg/dL LAB CHEMISTRY METHOD 02/11/2025 4:59 PM [facility] Creatinine 1.15 0.70 - 1.30 mg/dL LAB CHEMISTRY METHOD 02/11/2025 4:59 PM [facility] eGFR 75 >=60 mL/min/1. 73m2 LAB CHEMISTRY METHOD 02/11/2025 4:59 PM [facility] Comment:Calculation based on the Chronic Kidney Disease Epidemiology Collaboration (CKD-EPI) equation refit without adjustment for race. BUN/Creatinine Ratio 13.0 LAB CHEMISTRY METHOD 02/11/2025 4:[address] [facility] Calcium 8.5 8.5 - 10.5 mg/dL LAB CHEMISTRY METHOD 02/11/2025 4:59 PM [facility] AST (SGOT) 113(H) 10 - 42 unit/L LAB CHEMISTRY METHOD 02/11/2025 4:[address] [facility] Comment:Hemolysis present ALT (SGPT) 81(H) 10 - 60 unit/L LAB CHEMISTRY METHOD 02/11/2025 4:59 PM [facility] Alkaline Phosphatase 159(H) 42 - 121 unit/L LAB CHEMISTRY METHOD 02/11/2025 4:59 PM [facility] Total Protein 6.9 6.0 - 8.0 g/dL LAB CHEMISTRY METHOD 02/11/2025 4:[address] [facility] Albumin 2.8(L) 3.2 - 5.0 g/dL LAB CHEMISTRY METHOD 02/11/2025 4:59 PM [facility] Total Bilirubin 1.0 0.0 - 1.4 mg/dL LAB CHEMISTRY METHOD 02/11/2025 4:59 PM [facility] Blood Venous blood specimen / Unknown Venipuncture / Unknown 02/11/2025 4:08 PM EDT 02/11/2025 4:27 PM EDT us Merlin Durbin DO LAB BLOOD ORDERABLES Final Res ult [facility] [address] [place] [address], from Last 3 Months Insurance [facility] Care Teams Scarrer Relationship Specialty Start Date End Date Gautam Cheema PA [address] [place] [phone] PCP - General Physician Electrical Design Technologist 02/08/25
== END 2025-03-31 09:30 | disposition home or self-care (01) ==
LOC: HO.HMCH 08:51
PROVIDERS: Visit Provider Physician Assistant
DX: Z00.00 Encounter for general adult medical examination without abnormal findings (principal); I10 Essential (primary) hypertension; F17.210 Nicotine dependence, cigarettes, uncomplicated; J43.9 Emphysema, unspecified; Z96.642 Presence of left artificial hip joint

== ENCOUNTER → 2025-03-31 08:50 | Outpatient (BNVA) | payer OTHER, SELFPAY | PROVIDERS: Visit Provider Physician Assistant | DX: Z00.00 Encounter for general adult medical examination without abnormal findings (principal); I10 Essential (primary) hypertension; E78.5 Hyperlipidemia, unspecified; J43.9 Emphysema, unspecified; F17.210 Nicotine dependence, cigarettes, uncomplicated; E78.1 Pure hyperglyceridemia; Z96.642 Presence of left artificial hip joint | CPT/HCPCS: 96127 ==

== ENCOUNTER 2025-08-03 08:29 | Outpatient (AMB) | payer OTHER, SELFPAY ==
--- NOTE | 2025-08-03 08:40 | MHC.PC.OV ---
Vital Signs 08/03/25 08:41 Height 5 ft 9 in Weight 183 lb 8 oz BMI 27.1 BP 140/68 H Blood Pressure Location Lt brachial Position Sitting Pulse 77 Pulse Source Pulse Oximeter Temp 96.9 F Temp Source Temporal Artery Scan Pulse Oximetry (%) 96 Oxygen Delivery Method Room Air Intake Visit Reasons: F/U HTN Intake Note: Patient is here to follow up on HTN. Principal Military Analyst Required: No Human Resources Benefits Specialist: Not Required per policy Accompanied by: Self / Same As Patient Allergies No Known Allergies Allergy (Verified 08/03/25 09:02) Medication List - Last Reconciled 08/03/25 by Gautam Cheema PA-C lisinopril 5 mg PO DAILY 90 days multivitamin 1 tab PO DAILY Tobacco use date assessed: 08/03/25 Dental Screening Dental Screen Date: 03/31/25 HPI F/U HTN HPI Details Patient is a 54-year-old male here today for a follow-up visit. Patient has a past medical history significant for essential hypertension, Hyperlipidemia tobacco dependency, emphysema, left total hip replacement. Hypertension: Patient's blood pressure elevated today in office. Continues on lisinopril 5 mg. We did decrease his lisinopril from 20 mg due to hypotension. He does not regularly monitor his blood pressure at home . At this time He is asymptomatic without any chest discomfort, headaches or vision issues. PLAN: Will increase his lisinopril to 10 mg for better blood pressure control . .. Tobacco use disorder: Does not buy cigarettes anymore. He has been smoking 1-2 cigarettes per day at work. Has been trying to reduce his smoking with nicotine replacement which has been helpful. Of note does have emphysema and from time to time has a wheezing thus will supply patient with an albuterol inhaler to use on an as needed basis [facility] Medical History Personal history of nicotine dependence Avascular necrosis of bone of left hip Osteoarthritis of left hip HTN (hypertension) Lipoma Osteoarthritis Varicose vein of leg Wears glasses Wears dentures Use of cane as ambulatory aid HLD (hyperlipidemia) Overweight (BMI 25.0-29.9) Essential hypertension Surgical History History of total left hip replacement Hx of colonoscopy (~07/2024) Family History Mother Liver cancer Father Heart attack, Onset Age: 69 Diabetes Brother Diabetes Social History Household Members: Spouse Housing: House Are you a primary respiratory care practitioner to a significant other at home: No Do you presently have visiting nurse or other home services: No 75 years or older and lives alone: No Alcohol intake: current Alcohol intake frequency: a few times a week Alcohol type: beer Patient Tobacco Use Status: Current someday Tobacco user (Work days; 1 cigarette in the AM with coffee) Tobacco use type: Cigarette Cigarette Packs Per Day: 0.25 Cigarettes Per Day: 3 Years Smoked: (onset 19yo, 1ppd x 34yrs, 30+PYH) e-Cigarette/Vaping Use: Never Used Second Hand Smoke Exposure: Yes service: No Current occupational status: employed 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 Cognitive needs: No Hearing needs: No Vision needs: Yes (Glasses) Questionnaire Thrive Questionnaire Date Thrive assessed: 03/31/25 I am a: Patient What is your living situation today?: I have a steady place to live Within the past 12 months, did the food you bought not last and you didn't have the money to get more?: I choose not to answer this question Within the past 12 months, did you worry whether your food would run out before you got money to buy more?: I choose not to answer this question Do you have trouble paying for medicines?: No Do you have trouble getting transportation to medical appointments?: No Do you have trouble paying your heating and electricity bill?: No Do you have trouble taking care of your child, family member or friend?: No Do you have trouble with day-to-day activities such as bathing, preparing meals, shopping, managing finances, etc.?: I choose not to answer this question Are you currently unemployed and looking for a job?: I choose not to answer this question Are you interested in more education?: I choose not to answer this question Please select the resources that you would like help with: None Currently or been in a relationship where the following occur: I choose not to answer THRIVE Score: 0 LUIS DANIEL-7 AMB Questionnaire LUIS DANIEL-7 Date LUIS DANIEL - 7 assessed: 03/31/25 Source: Developed by Drs. Rick Alonzo, Noemy Neal, Juan R Plascencia and colleagues, with an educational obey from [employer]. Review of Systems Const Denies headache(s) Eyes Denies loss of vision ENT Denies vertigo, Denies dizziness, Denies headache(s) and Denies sore throat Card Denies chest pain, Denies leg edema and Denies lightheadedness Resp Denies cough, Denies hemoptysis and Denies wheezing GI Denies abdominal pain, Denies melena, Denies constipation, Denies diarrhea and Denies vomiting Denies dysuria, Denies urinary frequency and Denies urinary urgency Musc Denies arthralgias, Denies joint swelling, Denies numbness and Denies tingling Neuro Denies Abnormal speech present, Denies behavioral changes, Denies vertigo, Denies dizziness, Denies headache(s), Denies loss of vision, Denies memory loss, Denies numbness and Denies tingling Psych Denies anxiety, Denies behavioral changes, Denies depression, Denies memory loss and Denies panic attacks Gerald/Lymph Denies easy bleeding and Denies easy bruising Aller/Immun Denies wheezing Physical exam (Primary Care) Vital Signs: Last Vital Signs Temp 96.9 F 08/03/25 08:41 Pulse 77 08/03/25 08:41 BP 140/68 H 08/03/25 08:41 Pulse Ox 96 08/03/25 08:41 Oxygen Delivery Method Room Air 08/03/25 08:41 BMI result Body Mass Index 27.1 Tobacco/Smoking Status: Tobacco use Status Tobacco use date assessed 08/03/25 08/03/25 08:46 Patient Tobacco Use Status Current someday Tobacco ( 08/03/25 08:46 Work days; 1 cigarette in the AM with coffee) Tobacco use type Cigarette 08/03/25 08:46 e-Cigarette/Vaping Use Never Used 08/03/25 08:46 Are you ready to quit: Yes Tobacco cessation counseling provided: Yes Items discussed: QuitWorks Relapse Prevention: discussed the importance of a supportive environment, discussed negative mood or depression after quitting, weight gain after smoking is common and discussed dietary, exercise and/or lifestyle changes Number of minutes spent counselin CPT code: 95707 - 4-10 Minutes Thrive Assessment: Date of Thrive Assessment Date Thrive assessed 03/31/25 08/03/25 08:46 Currently or been in a relationship where the following occur: I choose not to answer Const General: healthy appearing, no acute distress, alert and awake Nutritional Appearance: well nourished Orientation/consciousness: oriented to person, oriented to place and oriented to time HENMT Ears: TM's normal bilaterally General nose exam: Normal nasal mucous membranes and turbinates present Eyes Conjunctivae: conjunctivae normal Sclerae: sclerae normal Pupils: Equal, round and reactive pupils present Neck Neck: Yes no lymphadenopathy and Yes no JVD Thyroid: Thyroid normal Carotids: no bruits Resp Effort & Inspection: normal respiratory effort and not tachypneic Auscultation: no crackles, no rales, no rhonchi and no wheezes Cardio Rate: regular rate Rhythm: regular rhythm Heart sounds: no murmurs and normal S1 and S2 GI Palpation (GI): Soft to palpation, nontender, no hepatomegaly and no splenomegaly Auscultation: normal bowel sounds Skin General skin exam: no rashes or lesions noted and dry skin Neuro General: oriented to person, oriented to place and oriented to time Cranial nerves: Yes Equal, round and reactive pupils present Speech: No Abnormal speech present Gait exam (Neuro): Normal gait present Motor exam (neuro): no tremor noted Extrem Right upper extremity: full ROM Left upper extremity: full ROM Right lower extremity: full ROM; no edema Left lower extremity: full ROM; no edema Psych Mental Status: mental status grossly normal Speech and movement: Normal speech and movement present Affect: normal affect Attitude: cooperative Thought process: Normal thought process present Coding Level of Care Code Est Pt Level 4 (82128) Diagnoses Primary hypertension I10 Hypertension type: primary hypertension Nicotine dependence, cigarettes, uncomplicated F17.210 Pulmonary emphysema, unspecified emphysema type J43.9 Emphysema type: unspecified Additional Codes Vital Signs *Quality* - CPT code: 61333 - 4-10 Minutes ([id number]) Assessment & Plan Assessment & Plan (1) HTN (hypertension): Code(s): I10 - Essential (primary) hypertension Category: Medical Qualifiers: Hypertension type: primary hypertension Qualified Code(s): I10 - Essential (primary) hypertension Plan: Patient's blood pressure elevated today in office, will increase his lisinopril dose to 10 mg for better blood pressure control. goal blood pressure to remain below 140/90 (2) Nicotine dependence, cigarettes, uncomplicated: Comment: (onset 19yo, 1ppd x 34yrs, 30+PYH - quit 11/02/2024) Code(s): F17.210 - Nicotine dependence, cigarettes, uncomplicated Category: Medical Plan: He does report still smoking 1 or 2 cigarettes per day. He does understand he needs to completely quit. He has a lung cancer screening program and most recent CT lung showing stable nodules, repeat 1 year screening (3) Emphysema lung: Code(s): J43.9 - Emphysema, unspecified Category: Medical Qualifiers: Emphysema type: unspecified Qualified Code(s): J43.9 - Emphysema, unspecified Plan: As above patient denies any pulmonary symptoms in continues in a lung cancer screening program. Will supply patient with an albuterol inhaler to use on an as needed basis Medications: New albuterol sulfate 90 mcg/actuation (Ventolin HFA) 1 inh inhalation QID 8.5 grams 1RF 4 weeks J43.9 - Emphysema, unspecified lisinopril 10 mg PO DAILY 90 tabs 1RF 90 days I10 - Essential (primary) hypertension Discontinued lisinopril Discontinued Reason: Doctor's Order 5 mg PO DAILY 90 days 90 tabs 1RF I10 - Essential (primary) hypertension Patient Instructions: Goal: Blood pressure to be below 140/90 Barriers: Adherence to physical activity and healthy eating habits. Smoking
[2025-08-03 08:41] VITALS: BP 140/68; PULSE 77; TEMP 36.1; O2SAT 96; BMI 27.1
== END 2025-08-03 09:15 | disposition home or self-care (01) ==
LOC: HO.HMCH 08:30
PROVIDERS: PCP Physician Assistant; Visit Provider Physician Assistant
DX: I10 Essential (primary) hypertension (principal); F17.210 Nicotine dependence, cigarettes, uncomplicated; J43.9 Emphysema, unspecified

== ENCOUNTER 2025-08-03 08:29 | Outpatient (REF) | payer OTHER, SELFPAY ==
[2025-08-03 11:02] LABS: Hematocrit 41.2 % (42.0-52.0); Hemoglobin 14.1 g/dl (14.0-18.0); Mean Corpuscular HGB Conc 34.2 g/dl (31.0-36.0); Mean Corpuscular Hemoglobin 34.0 pg (27.0-33.0); Mean Corpuscular Volume 99.3 fL (80.0-98.0); NRBC Abs Auto 0.000 X10*3/uL (0.0-0.012); NRBC Pct Auto 0.0 /100WBC (0.0-0.2); Platelet Count 120 X10*3/uL (160-400); Red Blood Count 4.15 X10*6/uL (4.60-5.80); White Blood Count 4.7 X10*3/uL (4.8-10.8)
[2025-08-03 11:42] LABS: Alanine Aminotransferase 209 U/L (0-40); Albumin Level 3.9 g/dL (3.5-5.0); Alkaline Phosphatase 109 U/L (39-117); Anion Gap 12 (12-20); Aspartate Amino Transferase 159 U/L (5-37); Blood Urea Nitrogen 14 mg/dL (9-16); Calcium 9.9 mg/dL (8.4-10.2); Carbon Dioxide 27 mmol/L (22-29); Chloride 103 mmol/L (96-108); Cholesterol 113 mg/dL (<200); Estimated Glomerular Filt Rate > 60; HDL Cholesterol 17 mg/dL (>40); Potassium 3.9 mmol/L (3.3-5.1); Sodium 138 mmol/L (135-145); Total Protein 8.4 g/dL (6.5-8.0); Triglycerides 339 mg/dL (<150)
== END 2025-08-03 08:30 | disposition home or self-care (01) ==
LOC: HO.LAB 08:29
PROVIDERS: PCP Physician Assistant; Visit Provider Physician Assistant
DX: I10 Essential (primary) hypertension (principal); E78.1 Pure hyperglyceridemia; E78.5 Hyperlipidemia, unspecified; J43.9 Emphysema, unspecified; F17.210 Nicotine dependence, cigarettes, uncomplicated; Z12.5 Encounter for screening for malignant neoplasm of prostate
CPT/HCPCS: 36415; 80053; 80061; 84153; 85027